=== PATIENT | male | born 2000 | race Caucasian/White ===

== ENCOUNTER 2021-11-05 05:15 | Emergency (ER) | payer BC, OTHER, SELFPAY ==
[2021-11-05 05:25] VITALS: BP 140/91; PULSE 100; RESP 18; TEMP 37.3; O2SAT 100; BMI 19.3
[2021-11-05 05:41] VITALS: PULSE 104; RESP 16; O2SAT 97
[2021-11-05 05:55] LABS: MANUAL DIFF FLAG NO
[2021-11-05 05:56] LABS: Basophils Percent Auto 0.2 % (0-2); Eosinophils Percent Auto 3.6 % (0-4); Imm Gran Abs Auto 0.01 X10*3/uL (0.00-0.03); Imm Gran Pct Auto 0.2 % (0.0-0.4); Mean Corpuscular HGB Conc 34.9 g/dl (31.0-36.0); PLT CLUMP 1; SCAN SMEAR FLAG 1
[2021-11-05 05:57] LABS: Eosinophils Absolute Auto 0.2 X10*3/uL (0.0-0.4); Hematocrit 50.5 % (42.0-52.0); Hemoglobin 17.6 g/dl (14.0-18.0); Lymphocytes Absolute Auto 0.9 X10*3/uL (1.2-4.9); Lymphocytes Percent Auto 14.2 % (20-40); Mean Corpuscular Volume 83.3 fL (80.0-98.0); Monocytes Absolute Auto 0.8 X10*3/uL (0.1-1.2); Monocytes Percent Auto 12.1 % (2-11); Neutrophils Absolute Auto 4.3 x10*3/uL (2.0-8.3); Neutrophils Percent Auto 69.7 % (45-73); Red Blood Count 6.06 X10*6/uL (4.60-5.80); Red Cell Distribution Width 12.6 % (11.0-16.0)
[2021-11-05] MEDS: diphenhydrAMINE HCL 50 MG/ML VIAL 25 MG IM (05:58)
[2021-11-05 06:05] LABS: Strep A Nucleic Acid Negative (Negative)
[2021-11-05 06:06] LABS: Platelet Count 131 X10*3/uL (160-400); White Blood Count 6.2 X10*3/uL (4.8-10.8)
[2021-11-05 06:09] LABS: COVID-19 Test Negative (Negative)
[2021-11-05 06:11] VITALS: BP 143/82; PULSE 89; RESP 20; TEMP 36.9; O2SAT 97
[2021-11-05 06:17] LABS: Alanine Aminotransferase 10 U/L (0-40); Albumin Level 4.7 g/dL (3.5-5.0); Alkaline Phosphatase 72 U/L (39-117); Anion Gap 14 (12-20); Aspartate Amino Transferase 15 U/L (5-37); Bilirubin Total 1.4 mg/dL (0.0-1.0); Blood Urea Nitrogen 11 mg/dL (9-16); Calcium 9.2 mg/dL (8.4-10.2); Carbon Dioxide 22 mmol/L (22-29); Chloride 106 mmol/L (96-108); Creatinine Clr Calc Pharmacy 113.7; Estimated Glomerular Filt Rate > 60; Glucose Random 145 mg/dL (60-115); Potassium 3.8 mmol/L (3.3-5.1); Sodium 138 mmol/L (135-145); Total Protein 7.1 g/dL (6.5-8.0)
--- NOTE | 2021-11-05 07:00 | ED.GENADULT ---
HPI - General Adult General Chief complaint: Skin/Abscess/Foreign Body Stated complaint: Nausea/Rash/Abd pain Time Seen by Provider: 11/05/21 06:53 History of Present Illness HPI narrative: This is a healthy 21 years old man presented to the emergency department complaining of rash, nausea. He states that he woke up above 05:00 with a rash and nausea therefore he came to the ED. He denies any fever, vomiting, diarrhea. Onset (ago): hour(s) (2) Location: chest and abdomen Radiation: non-radiation Quality: burning Relieving factors: none Exacerbating factors: none Associated symptoms: rash Related Data Previous Rx's Medication Instructions Recorded clindamycin phosphate 1 % topical 1 appl topical BEDTIME #30 mL 02/24/21 solution Allergies Allergy/AdvReac Type Severity Reaction Status Date / Time pistachio nut Allergy Anaphylaxis Verified 11/05/21 05:23 Review of Systems Review of Systems: Yes all other systems are reviewed and are negative Gastrointestinal: Gastrointestinal: Reports nausea Allergic/Immunologic: Comments: rash PMFSH Past Medical History Medical History Asthma Generalized anxiety disorder Irritable bowel syndrome Surgical History Transposition of the great arteries Social History Social History Housing: Other Patient Tobacco Use Status: Never used Tobacco e-Cigarette/Vaping Use: Never Used Second Hand Smoke Exposure: No Advance Directives: No Current occupational status: employed Physical Exam ED Vital Signs: Vital Signs - 24 hr 11/05/21 05:25 11/05/21 05:41 11/05/21 06:11 Temperature 99.1 F 98.4 F Pulse Rate 100 104 H 89 Respiratory Rate 18 16 20 Blood Pressure 140/91 H 143/82 H Pulse Oximetry 100 97 97 Oxygen Delivery Method Room Air Room Air Room Air BMI result Body Mass Index 19.3 Const General: cooperative, no acute distress, well developed, alert and awake Nutritional Appearance: average body habitus Orientation/consciousness: patient oriented x3 Limitations: no limitations HENMT Head: Yes normal to inspection Ears: hearing grossly normal bilaterally General nose exam: Normal external nose present Face and sinus: Yes normal facial exam Mouth: Normal oral and palatal mucosa present Throat: Yes posterior oropharynx normal Neck Neck: Yes normal visual inspection, Yes full ROM, Yes no lymphadenopathy and Yes no meningeal signs Lymphatic: no lymphadenopathy noted Chest Chest palpation & inspection: normal inspection of the chest Resp Effort & Inspection: normal respiratory effort Auscultation: clear to auscultation bilaterally Cardio Rate: regular rate Rhythm: regular rhythm GI Inspection: Yes normal to inspection Palpation (GI): Soft to palpation, not firm, nontender, no guarding and not rigid General: Yes no CVA tenderness Back/Spine/Pelvis Back: no CVA tenderness Skin Other: Erythematous rash is noted in the abdomen lower chest forearm bilaterally Neuro General: patient oriented x3 and no meningeal signs Course Course Course Narrative: remain hemodynamically stable,lungs clear, VSS OK to d/c Medical Decision Making MDM Narrative Medical decision making narrative: Patient presented with nausea and nausea consistent with an allergic reaction however is lungs are clear, tongue is normal , he is hemodynamically stable his oxygen saturation is 100%. He already received Benadryl prior my arrival. We will gave him IV Solu-Medrol, Pepcid and Zofran anticipate discharge home Lab Data Result diagrams: 11/05/21 05:48 11/05/21 05:48 Labs: Lab Results 11/05/21 11/05/21 11/05/21 Range/Units 05:48 05:48 05:48 WBC 6.2 (4.8-10.8) X10*3/uL RBC 6.06 H (4.60-5.80) X10*6/uL Hgb 17.6 (14.0-18.0) g/dl Hct 50.5 (42.0-52.0) % MCV 83.3 (80.0-98.0) fL MCH 29.0 (27.0-33.0) pg MCHC 34.9 (31.0-36.0) g/dl RDW 12.6 (11.0-16.0) % Plt Count 131 L (160-400) X10*3/uL MPV 10.0 (9.4-12.4) fL Immature Gran % (Auto) 0.2 (0.0-0.4) % Neut % (Auto) 69.7 (45-73) % Lymph % (Auto) 14.2 L (20-40) % [place] % (Auto) 12.1 H (2-11) % Eos % (Auto) 3.6 (0-4) % Baso % (Auto) 0.2 (0-2) % Lymph # (Auto) 0.9 L (1.2-4.9) X10*3/uL [place] # (Auto) 0.8 (0.1-1.2) X10*3/uL Eos # (Auto) 0.2 (0.0-0.4) X10*3/uL Baso # (Auto) 0.0 (0.0-0.2) X10*3/uL Abs Immat Gran (auto) 0.01 (0.00-0.03) X10*3/uL Absolute Neuts (auto) 4.3 (2.0-8.3) x10*3/uL Absolute Nucleated RBC 0.000 (0.0-0.012) X10*3/uL Nucleated RBC % (auto) 0.0 (0.0-0.2) /100WBC Sodium 138 (135-145) mmol/L Potassium 3.8 (3.3-5.1) mmol/L Chloride 106 (96-108) mmol/L Carbon Dioxide 22 (22-29) mmol/L Anion Gap 14 (12-20) BUN 11 (9-16) mg/dL Creatinine 0.95 (0.5-1.4) mg/dL Estim Creat Clear Calc 113.7 Estimated GFR > 60 Random Glucose 145 H (60-115) mg/dL Calcium 9.2 (8.4-10.2) mg/dL Total Bilirubin 1.4 H (0.0-1.0) mg/dL AST 15 (5-37) U/L ALT 10 (0-40) U/L Alkaline Phosphatase 72 (39-117) U/L Total Protein 7.1 (6.5-8.0) g/dL Albumin 4.7 (3.5-5.0) g/dL COVID-19 (GUTIERREZ) (Negative) COVID-19 Clin Com S. pyogenes GrpA ROSALEE Negative (Negative) 11/05/21 Range/Units 05:48 WBC (4.8-10.8) X10*3/uL RBC (4.60-5.80) X10*6/uL Hgb (14.0-18.0) g/dl Hct (42.0-52.0) % MCV (80.0-98.0) fL MCH (27.0-33.0) pg MCHC (31.0-36.0) g/dl RDW (11.0-16.0) % Plt Count (160-400) X10*3/uL MPV (9.4-12.4) fL Immature Gran % (Auto) (0.0-0.4) % Neut % (Auto) (45-73) % Lymph % (Auto) (20-40) % [place] % (Auto) (2-11) % Eos % (Auto) (0-4) % Baso % (Auto) (0-2) % Lymph # (Auto) (1.2-4.9) X10*3/uL [place] # (Auto) (0.1-1.2) X10*3/uL Eos # (Auto) (0.0-0.4) X10*3/uL Baso # (Auto) (0.0-0.2) X10*3/uL Abs Immat Gran (auto) (0.00-0.03) X10*3/uL Absolute Neuts (auto) (2.0-8.3) x10*3/uL Absolute Nucleated RBC (0.0-0.012) X10*3/uL Nucleated RBC % (auto) (0.0-0.2) /100WBC Sodium (135-145) mmol/L Potassium (3.3-5.1) mmol/L Chloride (96-108) mmol/L Carbon Dioxide (22-29) mmol/L Anion Gap (12-20) BUN (9-16) mg/dL Creatinine (0.5-1.4) mg/dL Estim Creat Clear Calc Estimated GFR Random Glucose (60-115) mg/dL Calcium (8.4-10.2) mg/dL Total Bilirubin (0.0-1.0) mg/dL AST (5-37) U/L ALT (0-40) U/L Alkaline Phosphatase (39-117) U/L Total Protein (6.5-8.0) g/dL Albumin (3.5-5.0) g/dL COVID-19 (GUTIERREZ) Negative (Negative) COVID-19 Clin Com See Note S. pyogenes GrpA ROSALEE (Negative) Discharge Plan Discharge Clinical Impression: Allergic reaction Patient Disposition: Home, Self-Care Instructions: General Allergic Reaction (ED) Additional Instructions: You could take Benadryl 25mg to50 mg every 6 hours as needed, Benadryl is [id number]. Return if you worse the few short of breath, any concern Prescriptions: No Action clindamycin phosphate 1 % solution 1 appl topical BEDTIME Qty: 30 1RF
[2021-11-05] MEDS: Famotidine/PF 20 MG/2 ML VIAL IVPUSH (07:37)
[2021-11-05] MEDS: methylPREDNISolone Sod Succ 125 MG/2 ML VIAL IVPUSH (07:37)
[2021-11-05] MEDS: ondansetron HCL 4 MG/2 ML VIAL IVPUSH (07:37)
== END 2021-11-05 08:14 | disposition home or self-care (01) ==
PROVIDERS: Emergency Provider Emergency Medicine; PCP Internal Medicine
DX: T78.40XA Allergy, unspecified, initial encounter (principal); R21 Rash and other nonspecific skin eruption; X58.XXXA Exposure to other specified factors, initial encounter; R11.0 Nausea; Z20.822 Contact with and (suspected) exposure to COVID-19
CPT/HCPCS: 36415; 80053; 85025; 87635; 87651; 96372; 96374; 96375; 99284; J1200; J2405; J2930

== ENCOUNTER 2022-02-23 14:39 | Inpatient (IN) | payer BC, OTHER, SELFPAY ==
--- NOTE | ~2022-02-23 | CT_ITS ---
EXAMINATION: CT SOFT TISSUE NECK WITH CONTRAST CLINICAL INFORMATION: Esophageal pain, recurrent impactions COMPARISON: None. TECHNIQUE: Following the administration of 75 mL of Omnipaque 300 intravenous contrast, helical imaging was performed in the axial plane with generation of coronal and sagittal reformatted images. This CT examination was performed using dose optimization techniques as appropriate, variously including the following: *Automated exposure control. *Adjustment of mA and/or kV according to patient size (this includes techniques or standardized protocols for targeted exams where dose is matched to indication/reason for exam; i.e. extremities or head). *Use of iterative reconstruction technique. DLP: 902 mGy-cm. FINDINGS: Nasopharynx/skull base: The fat planes of the skull base and soft tissues of the nasopharynx are unremarkable. The paranasal sinuses and mastoid air cells are well aerated. The temporomandibular joints are normal. Suprahyoid neck: The oropharynx, oral cavity, and bilateral salivary gland tissues are unremarkable. Infrahyoid neck: The hypopharynx and larynx are unremarkable. No aerodigestive tract mass. Thyroid: The thyroid gland is normal. Lymph nodes: There is no cervical chain lymphadenopathy. Lung apices: The partially visualized lung apices are clear. Small sternal wires are noted. Vascular structures: No hemodynamically significant stenosis, dissection, or occlusion. Osseous structures: The osseous structures are intact without suspicious focal lesion. Other: Redemonstration of gyriform calcifications in the left frontal lobe. There is enhancement, possibly vascular, in the parenchyma adjacent to the calcifications with possible prominent cortical draining vein which may reflect underlying vascular malformation. CT/CT soft tissue neck w IV con IMPRESSION: 1. Normal soft tissues of the neck. 2. Redemonstration of gyriform calcifications in the left frontal lobe with possible vascular enhancement which may reflect underlying vascular malformation. Recommend further evaluation with contrast-enhanced MRI and MRA of the brain with and without contrast.
--- NOTE | ~2022-02-23 | CT_ITS ---
EXAMINATION: CT HEAD WITH CONTRAST CLINICAL INFORMATION: Abnormal scan COMPARISON: None TECHNIQUE: Contiguous axial imaging was performed from the skull base to vertex following the administration of 100 mL of Omnipaque [address] examination was performed using dose optimization techniques as appropriate, variously including the following: *Automated exposure control *Adjustment of mA and/or kV according to patient size (this includes techniques or standardized protocols for targeted exams where dose is matched to indication/reason for exam; i.e. extremities or head) *Use of iterative reconstruction technique DLP: 797 mGy-cm FINDINGS: There is a region of predominantly gyriform dense calcification in the left frontal lobe with associated parenchymal atrophy. Superimposed contrast enhancement in the absence of a noncontrast CT cannot be excluded. Calcifications extend along the deep margin of the lesion towards the left head of the caudate. No evidence of acute intracranial hemorrhage within the limitations of a postcontrast exam. No mass effect or midline shift. No extra-axial collection. Normal caliber and configuration of the ventricles. No definite abnormal parenchymal enhancement. The dural venous sinuses are patent. No acute soft tissue or osseous abnormality. Trace scattered paranasal sinus mucosal thickening. The mastoids are clear. CT/CT head/brain w IV con IMPRESSION: 1. No acute intracranial abnormality within the limitations of a postcontrast exam. 2. There is a region of predominantly gyriform dense calcification in the left frontal lobe with associated parenchymal atrophy. This may reflect sequela of prior infarct, infection, or vascular malformation. Recommend correlation with clinical history and consider further evaluation with contrast-enhanced MRI of the brain.
--- NOTE | ~2022-02-23 | CT_ITS ---
EXAMINATION: CT CHEST WITH CONTRAST CLINICAL INFORMATION: Esophageal pain COMPARISON: None TECHNIQUE: Multidetector volumetric CT imaging of the chest was obtained after the administration of 75 mL of Omnipaque 350 intravenous contrast without immediate adverse reactions. Axial MIP volume rendering provided. Sagittal and coronal reformatted images were obtained. This CT examination was performed using dose optimization techniques as appropriate, variously including the following: *Automated exposure control *Adjustment of mA and/or kV according to patient size (this includes techniques or standardized protocols for targeted exams where dose is matched to indication/reason for exam; i.e. extremities or head) *Use of iterative reconstruction technique DLP: 902 mGy-cm FINDINGS: LUNGS: Central airways are patent. No consolidation. No pulmonary nodule or mass. No pneumothorax. MEDIASTINUM: Normal heart size. Variant anatomy of the vasculature. The main pulmonary artery is positioned anterior to the aorta. The right and left pulmonary arteries splay around the aorta, which varies from the typical positioning of the main pulmonary artery and its branches. Normal caliber aorta. Normal branching pattern of the aortic arch. Normal course of the esophagus. No esophageal wall thickening noted. No adjacent mass. CORONARY ARTERY CALCIFICATION: None visualized on this study. PLEURA: There is no pleural effusion. No pleural mass or thickening. AXILLA: No lymphadenopathy. UPPER ABDOMEN: Unremarkable OSSEOUS STRUCTURES: No acute osseous abnormality. Status post median sternotomy with small sternal wires, suggesting a pediatric procedure. CT/CT chest w IV con IMPRESSION: 1. No acute findings in the chest. Normal course of the esophagus. No esophageal wall thickening. No adjacent mass. 2. Variant anatomy of the central vasculature. The main pulmonary artery is positioned anterior to the aorta. The right and left pulmonary arteries splay around the aorta, which varies from the typical positioning of the main pulmonary artery and its branches. There is likely prior pediatric intervention, with median sternotomy wires noted. Fleischner guidelines were followed.
[2022-02-23 14:41] VITALS: BP 145/71; PULSE 90; RESP 18; TEMP 36.1; O2SAT 100; BMI 18.2
--- NOTE | 2022-02-23 14:44 | ECG_ITS ---
Test Reason : chest pain Blood Pressure : / mmHG Vent. Rate : 118 BPM Atrial Rate : 118 BPM P-R Int : 156 ms QRS Dur : 112 ms QT Int : 320 ms P-R-T Axes : 077 088 059 degrees QTc Int : 448 ms Sinus tachycardia RSR' or QR pattern in V1 suggests right ventricular conduction delay Biatrial enlargement Abnormal ECG No previous ECGs available Referred By: Generic ED Physician Electronically Signed By:TAMMY CASTRO MD
[2022-02-23 15:07] LABS: MANUAL DIFF FLAG NO
[2022-02-23 15:10] LABS: Basophils Percent Auto 0.5 % (0-2); Eosinophils Absolute Auto 0.2 X10*3/uL (0.0-0.4); Eosinophils Percent Auto 3.1 % (0-4); Hematocrit 48.7 % (42.0-52.0); Hemoglobin 16.7 g/dl (14.0-18.0); Imm Gran Abs Auto 0.02 X10*3/uL (0.00-0.03); Imm Gran Pct Auto 0.4 % (0.0-0.4); Lymphocytes Absolute Auto 1.5 X10*3/uL (1.2-4.9); Lymphocytes Percent Auto 27.5 % (20-40); Mean Corpuscular HGB Conc 34.3 g/dl (31.0-36.0); Mean Corpuscular Hemoglobin 28.7 pg (27.0-33.0); Mean Corpuscular Volume 83.7 fL (80.0-98.0); Mean Platelet Volume 9.8 fL (9.4-12.4); Monocytes Absolute Auto 0.5 X10*3/uL (0.1-1.2); Monocytes Percent Auto 9.4 % (2-11); Neutrophils Absolute Auto 3.3 x10*3/uL (2.0-8.3); Neutrophils Percent Auto 59.1 % (45-73); Platelet Count 174 X10*3/uL (160-400); Red Blood Count 5.82 X10*6/uL (4.60-5.80); Red Cell Distribution Width 12.9 % (11.0-16.0); White Blood Count 5.6 X10*3/uL (4.8-10.8)
[2022-02-23 15:22] LABS: COVID-19 Test Negative (Negative); IDNOW Serial# 16C4AD1C
[2022-02-23 15:26] LABS: Alanine Aminotransferase 9 U/L (0-40); Albumin Level 5.1 g/dL (3.5-5.0); Alkaline Phosphatase 88 U/L (39-117); Anion Gap 18 (12-20); Aspartate Amino Transferase 16 U/L (5-37); Bilirubin Direct 0.7 mg/dL (0.0-0.5); Bilirubin Total 1.6 mg/dL (0.0-1.0); Blood Urea Nitrogen 13 mg/dL (9-16); Calcium 9.9 mg/dL (8.4-10.2); Carbon Dioxide 24 mmol/L (22-29); Chloride 101 mmol/L (96-108); Creatinine Clr Calc Pharmacy 121.7; Estimated Glomerular Filt Rate > 60; Glucose Random 84 mg/dL (60-115); Lipase 25 U/L (8-78); Potassium 3.8 mmol/L (3.3-5.1); Sodium 139 mmol/L (135-145); Total Protein 7.4 g/dL (6.5-8.0)
[2022-02-23 15:32] LABS: Troponin-I High Sensitivity 15.6 ng/L (<3.5-35.0)
[2022-02-23 20:11] VITALS: BP 160/73; PULSE 100; RESP 9; TEMP 36.8; O2SAT 98
--- NOTE | 2022-02-23 20:17 | ED.CHESTPAIN ---
HPI - Chest Pain General Chief Complaint: Chest Pain Stated Complaint: chest pain Time Seen by Provider: 02/23/22 20:17 Source: patient Mode of arrival: ambulatory Limitations: no limitations History of Present Illness HPI narrative: 21-year-old male presents with 3 days of upper abdominal burning, chest pain, and esophageal pain. Patient stated that he had some hot in temperature food, pretty much inhaled it and it burned his esophagus. He is only able to take small sips of water, ate some chocolate however it burned to the point where he felt that he needed to present to the emergency department. He does not describe fevers, chills, abdominal pain, nausea, vomiting, diarrhea, or weakness. MD complaint: chest pain and chest discomfort Pertinent past history: asthma Onset (ago): day(s) (3) Timing of current episode: constant Prior episodes: No Onset: after eating Pain location: substernal and other (Esophageal) Severity: severe Pain scale (0-10): 9 Quality: burning Relieving factors: nothing Exacerbating factors: eating Risk Factors Coronary artery disease risk factors: none Thoracic aortic dissection risk factors: none Related Data Previous Rx's Medication Instructions Recorded clindamycin phosphate 1 % topical 1 appl topical BEDTIME #30 mL 02/24/21 solution Allergies Allergy/AdvReac Type Severity Reaction Status Date / Time pistachio nut Allergy Anaphylaxis Verified 11/05/21 05:23 Review of Systems Review of Systems: Constitutional: No Fever, No Chills ENT/Mouth: No Ear Pain, No Hoarseness, No sore throat Eyes: No Eye Pain, No Swelling, No Redness, No Foreign Body Cardiovascular: Positive Chest Pain, No SOB Respiratory: No Cough, No Dyspnea Gastrointestinal: Positive esophageal pain, No Nausea, No Vomiting, No Diarrhea, No abdominal Pain Genitourinary: No Dysuria, No Hematuria Musculoskeletal: No joint pain, No Myalgias, No Joint Swelling Skin: No Skin lacerations, No rash Neuro: No Weakness, No Numbness, No Paresthesias, No Loss of Consciousness, No Dizziness, No Headache Psych: No Anxiety/Panic, No Depression Heme/Lymph: no easy bruising, no Lymphadenopathy Endocrine: No Polyuria, No Polydipsia Yes all other systems are reviewed and are negative PMFSH Past Medical History Attestation statement: The following information was validated with the patient. Source: old records reviewed Medical History Asthma Generalized anxiety disorder Irritable bowel syndrome Surgical History Transposition of the great arteries Social History Social History Housing: Other Alcohol intake: current Alcohol intake frequency: holidays/special occasions only Patient Tobacco Use Status: Never used Tobacco e-Cigarette/Vaping Use: Never Used Second Hand Smoke Exposure: No Use of substances other than those prescribed or required for medical reasons: No Advance Directives: No Advance Directives Information Provided: No Current occupational status: employed Physical Exam Vital Signs: Vital Signs: Last Vital Signs Temp 97.5 F 02/23/22 22:46 Pulse 81 02/23/22 22:46 Resp 16 02/23/22 22:46 BP 129/74 02/23/22 22:46 Pulse Ox 96 02/23/22 22:46 O2 Del Method 02/23/22 21:48 BMI result Body Mass Index 18.2 Appearance: Alert. Oriented X3. No acute distress. Eyes: Pupils equal, round and reactive to light. ENT: Pharynx normal. Neck: Normal inspection. Neck supple. CVS: Normal heart rate and rhythm. Pulses normal. Respiratory: No respiratory distress. Breath sounds normal. Abdomen: Soft and nontender. Skin: Skin warm and dry. Normal skin color. Normal skin turgor. Extremities: No lower extremity edema. Well-balanced, well coordinated gait. Neuro: No motor deficit. No sensory deficit. Cranial nerves 2-12 intact. 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 Stated he inhaled the food because of the hot temperature, and the food burned the inside of his esophagus. He states that he has had difficulty swallowing food, and only can swallow small bits of water. He did try to eat chocolate however the chocolate burned his esophagus to the point where he needed Tums. Patient does not usually take any medications. Patient is alert oriented x4, pleasant but nervous, appears nontoxic, thin, with a well-balanced well coordinated gait. Labs were drawn while patient was in the emergency department waiting room, will repeat troponin. Discussion with Dr. Paredes, plan of care is for soft tissue CT and CT scan of the chest. Based on patient's history, patient has had a longstanding history of food impactions, where he has had to make himself throw up to get lodged food out of his esophagus, and has had multiple episodes of vomiting throughout adolescents. Plan is to admit for emergent endoscopy for the morning. Patient will be NPO after midnight. I did discussed this plan in detail with parent as well as patient, which both agree to plan of care. Discussion with Dr. Ordaz, plan of care is to admit for dysphagia. Consultations Consultation #1: Reggie Time: 23:10 Consultation #2: sabina Time: 23:30 MDM - Chest Pain Differential Diagnosis Differential diagnosis: Likely pneumothorax, atypical chest pain, st elevation myocardial infarction and biliary colic Differential diagnosis: Eosinophilic esophagitis, Schatzki's ring, food impaction Medical Records Data Attestation: I reviewed the patient's medical records. Lab Data Attestation: I reviewed the patient's lab results. Result diagrams: 02/23/22 14:59 02/23/22 14:59 Labs: Lab Results 02/23/22 02/23/22 02/23/22 Range/Units 14:59 14:59 14:59 WBC 5.6 (4.8-10.8) X10*3/uL RBC 5.82 H (4.60-5.80) X10*6/uL Hgb 16.7 (14.0-18.0) g/dl Hct 48.7 (42.0-52.0) % MCV 83.7 (80.0-98.0) fL MCH 28.7 (27.0-33.0) pg MCHC 34.3 (31.0-36.0) g/dl RDW 12.9 (11.0-16.0) % Plt Count 174 D (160-400) X10*3/uL MPV 9.8 (9.4-12.4) fL Immature Gran % (Auto) 0.4 (0.0-0.4) % Neut % (Auto) 59.1 (45-73) % Lymph % (Auto) 27.5 (20-40) % [place] % (Auto) 9.4 (2-11) % Eos % (Auto) 3.1 (0-4) % Baso % (Auto) 0.5 (0-2) % Lymph # (Auto) 1.5 (1.2-4.9) X10*3/uL [place] # (Auto) 0.5 (0.1-1.2) X10*3/uL Eos # (Auto) 0.2 (0.0-0.4) X10*3/uL Baso # (Auto) 0.0 (0.0-0.2) X10*3/uL Abs Immat Gran (auto) 0.02 (0.00-0.03) X10*3/uL Absolute Neuts (auto) 3.3 (2.0-8.3) x10*3/uL Absolute Nucleated RBC 0.000 (0.0-0.012) X10*3/uL Nucleated RBC % (auto) 0.0 (0.0-0.2) /100WBC Sodium 139 (135-145) mmol/L Potassium 3.8 (3.3-5.1) mmol/L Chloride 101 (96-108) mmol/L Carbon Dioxide 24 (22-29) mmol/L Anion Gap 18 (12-20) BUN 13 (9-16) mg/dL Creatinine 0.86 (0.5-1.4) mg/dL Estim Creat Clear Calc 121.7 Estimated GFR > 60 Random Glucose 84 D (60-115) mg/dL Calcium 9.9 D (8.4-10.2) mg/dL Total Bilirubin 1.6 H (0.0-1.0) mg/dL Direct Bilirubin 0.7 H (0.0-0.5) mg/dL AST 16 (5-37) U/L ALT 9 (0-40) U/L Alkaline Phosphatase 88 D (39-117) U/L Troponin I High Sens (<3.5-35.0) ng/L Total Protein 7.4 (6.5-8.0) g/dL Albumin 5.1 H (3.5-5.0) g/dL Lipase 25 (8-78) U/L Urine Color Urine Appearance Urine pH (5.0-9.0) Ur Specific [place] (1.005-1.025) Urine Protein (Neg-Trace) mg/dL Urine Glucose (UA) (Negative) mg/dL Urine Ketones (Negative) mg/dL Urine Blood (Negative) Urine Nitrite (Negative) Ur Leukocyte Esterase (Negative) Urine Opiates Screen (Not Detect) Urine Fentanyl Screen (Not Detect) Ur Barbiturates Screen (Not Detect) Ur Phencyclidine Scrn (Not Detect) Ur Amphetamines Screen (Not Detect) U Benzodiazepines Scrn (Not Detect) Urine Cocaine Screen (Not Detect) U Marijuana (THC) Screen (Not Detect) COVID-19 (GUTIERREZ) Negative (Negative) COVID-19 Clin Com See Note 02/23/22 02/23/22 02/23/22 Range/Units 14:59 20:37 21:18 WBC (4.8-10.8) X10*3/uL RBC (4.60-5.80) X10*6/uL Hgb (14.0-18.0) g/dl Hct (42.0-52.0) % MCV (80.0-98.0) fL MCH (27.0-33.0) pg MCHC (31.0-36.0) g/dl RDW (11.0-16.0) % Plt Count (160-400) X10*3/uL MPV (9.4-12.4) fL Immature Gran % (Auto) (0.0-0.4) % Neut % (Auto) (45-73) % Lymph % (Auto) (20-40) % [place] % (Auto) (2-11) % Eos % (Auto) (0-4) % Baso % (Auto) (0-2) % Lymph # (Auto) (1.2-4.9) X10*3/uL [place] # (Auto) (0.1-1.2) X10*3/uL Eos # (Auto) (0.0-0.4) X10*3/uL Baso # (Auto) (0.0-0.2) X10*3/uL Abs Immat Gran (auto) (0.00-0.03) X10*3/uL Absolute Neuts (auto) (2.0-8.3) x10*3/uL Absolute Nucleated RBC (0.0-0.012) X10*3/uL Nucleated RBC % (auto) (0.0-0.2) /100WBC Sodium (135-145) mmol/L Potassium (3.3-5.1) mmol/L Chloride (96-108) mmol/L Carbon Dioxide (22-29) mmol/L Anion Gap (12-20) BUN (9-16) mg/dL Creatinine (0.5-1.4) mg/dL Estim Creat Clear Calc Estimated GFR Random Glucose (60-115) mg/dL Calcium (8.4-10.2) mg/dL Total Bilirubin (0.0-1.0) mg/dL Direct Bilirubin (0.0-0.5) mg/dL AST (5-37) U/L ALT (0-40) U/L Alkaline Phosphatase (39-117) U/L Troponin I High Sens 15.6 14.1 (<3.5-35.0) ng/L Total Protein (6.5-8.0) g/dL Albumin (3.5-5.0) g/dL Lipase (8-78) U/L Urine Color Yellow Urine Appearance Clear Urine pH 6.0 (5.0-9.0) Ur Specific [place] <= 1.005 (1.005-1.025) Urine Protein Negative (Neg-Trace) mg/dL Urine Glucose (UA) Negative (Negative) mg/dL Urine Ketones 40 (Negative) mg/dL Urine Blood Negative (Negative) Urine Nitrite Negative (Negative) Ur Leukocyte Esterase Negative (Negative) Urine Opiates Screen (Not Detect) Urine Fentanyl Screen (Not Detect) Ur Barbiturates Screen (Not Detect) Ur Phencyclidine Scrn (Not Detect) Ur Amphetamines Screen (Not Detect) U Benzodiazepines Scrn (Not Detect) Urine Cocaine Screen (Not Detect) U Marijuana (THC) Screen (Not Detect) COVID-19 (GUTIERREZ) (Negative) COVID-19 Clin Com 02/23/22 Range/Units 21:18 WBC (4.8-10.8) X10*3/uL RBC (4.60-5.80) X10*6/uL Hgb (14.0-18.0) g/dl Hct (42.0-52.0) % MCV (80.0-98.0) fL MCH (27.0-33.0) pg MCHC (31.0-36.0) g/dl RDW (11.0-16.0) % Plt Count (160-400) X10*3/uL MPV (9.4-12.4) fL Immature Gran % (Auto) (0.0-0.4) % Neut % (Auto) (45-73) % Lymph % (Auto) (20-40) % [place] % (Auto) (2-11) % Eos % (Auto) (0-4) % Baso % (Auto) (0-2) % Lymph # (Auto) (1.2-4.9) X10*3/uL [place] # (Auto) (0.1-1.2) X10*3/uL Eos # (Auto) (0.0-0.4) X10*3/uL Baso # (Auto) (0.0-0.2) X10*3/uL Abs Immat Gran (auto) (0.00-0.03) X10*3/uL Absolute Neuts (auto) (2.0-8.3) x10*3/uL Absolute Nucleated RBC (0.0-0.012) X10*3/uL Nucleated RBC % (auto) (0.0-0.2) /100WBC Sodium (135-145) mmol/L Potassium (3.3-5.1) mmol/L Chloride (96-108) mmol/L Carbon Dioxide (22-29) mmol/L Anion Gap (12-20) BUN (9-16) mg/dL Creatinine (0.5-1.4) mg/dL Estim Creat Clear Calc Estimated GFR Random Glucose (60-115) mg/dL Calcium (8.4-10.2) mg/dL Total Bilirubin (0.0-1.0) mg/dL Direct Bilirubin (0.0-0.5) mg/dL AST (5-37) U/L ALT (0-40) U/L Alkaline Phosphatase (39-117) U/L Troponin I High Sens (<3.5-35.0) ng/L Total Protein (6.5-8.0) g/dL Albumin (3.5-5.0) g/dL Lipase (8-78) U/L Urine Color Urine Appearance Urine pH (5.0-9.0) Ur Specific [place] (1.005-1.025) Urine Protein (Neg-Trace) mg/dL Urine Glucose (UA) (Negative) mg/dL Urine Ketones (Negative) mg/dL Urine Blood (Negative) Urine Nitrite (Negative) Ur Leukocyte Esterase (Negative) Urine Opiates Screen Not Detected (Not Detect) Urine Fentanyl Screen Not Detected (Not Detect) Ur Barbiturates Screen Not Detected (Not Detect) Ur Phencyclidine Scrn Not Detected (Not Detect) Ur Amphetamines Screen Not Detected (Not Detect) U Benzodiazepines Scrn Not Detected (Not Detect) Urine Cocaine Screen Not Detected (Not Detect) U Marijuana (THC) Screen Not Detected (Not Detect) COVID-19 (GUTIERREZ) (Negative) COVID-19 Clin Com Imaging Data CT chest: Attestation: I personally reviewed and interpreted this imaging study as follows: Radiologist's impression: FINDINGS: LUNGS: Central airways are patent. No consolidation. No pulmonary nodule or mass. No pneumothorax.? MEDIASTINUM: Normal heart size. Variant anatomy of the vasculature. The main pulmonary artery is positioned anterior to the aorta. The right and left pulmonary arteries splay around the aorta, which varies from the typical positioning of the main pulmonary artery and its branches. Normal caliber aorta. Normal branching pattern of the aortic arch. Normal course of the esophagus. No esophageal wall thickening noted. No adjacent mass. CORONARY ARTERY CALCIFICATION: None visualized on this study. PLEURA: There is no pleural effusion. No pleural mass or thickening.? AXILLA: No lymphadenopathy.? UPPER ABDOMEN: Unremarkable? OSSEOUS STRUCTURES: No acute osseous abnormality. Status post median sternotomy with small sternal wires, suggesting a pediatric procedure. CT/CT chest w IV con IMPRESSION: 1.? No acute findings in the chest. Normal course of the esophagus. No esophageal wall thickening. No adjacent mass. 2.? Variant anatomy of the central vasculature. The main pulmonary artery is positioned anterior to the aorta. The right and left pulmonary arteries splay around the aorta, which varies from the typical positioning of the main pulmonary artery and its branches. There is likely prior pediatric intervention, with median sternotomy wires noted. ? Fleischner guidelines were followed. CT scan - head: Attestation: I personally reviewed and interpreted this imaging study as follows: Radiologist's impression: FINDINGS: There is a region of predominantly gyriform dense calcification in the left frontal lobe with associated parenchymal atrophy. Superimposed contrast enhancement in the absence of a noncontrast CT cannot be excluded. Calcifications extend along the deep margin of the lesion towards the left head of the caudate. No evidence of acute intracranial hemorrhage within the limitations of a postcontrast exam. No mass effect or midline shift. No extra-axial collection. Normal caliber and configuration of the ventricles. No definite abnormal parenchymal enhancement. The dural venous sinuses are patent. No acute soft tissue or osseous abnormality. Trace scattered paranasal sinus mucosal thickening. The mastoids are clear. CT/CT head/brain w IV con IMPRESSION: ? 1.? No acute intracranial abnormality within the limitations of a postcontrast exam. ? 2.? There is a region of predominantly gyriform dense calcification in the left frontal lobe with associated parenchymal atrophy. This may reflect sequela of prior infarct, infection, or vascular malformation. Recommend correlation with clinical history and consider further evaluation with contrast-enhanced MRI of the brain. CT soft tissue neck: Attestation: I personally reviewed and interpreted this imaging study as follows: Radiologist's impression: FINDINGS: Nasopharynx/skull base: The fat planes of the skull base and soft tissues of the nasopharynx are unremarkable. The paranasal sinuses and mastoid air cells are well aerated. The temporomandibular joints are normal. Suprahyoid neck: The oropharynx, oral cavity, and bilateral salivary gland tissues are unremarkable. Infrahyoid neck: The hypopharynx and larynx are unremarkable. No aerodigestive tract mass. Thyroid: The thyroid gland is normal. Lymph nodes: There is no cervical chain lymphadenopathy. Lung apices: The partially visualized lung apices are clear. Small sternal wires are noted. Vascular structures: No hemodynamically significant stenosis, dissection, or occlusion. Osseous structures: The osseous structures are intact without suspicious focal lesion. Other: Redemonstration of gyriform calcifications in the left frontal lobe. There is enhancement, possibly vascular, in the parenchyma adjacent to the calcifications with possible prominent cortical draining vein which may reflect underlying vascular malformation. CT/CT soft tissue neck w IV con IMPRESSION: ? 1.? Normal soft tissues of the neck. ? 2.? Redemonstration of gyriform calcifications in the left frontal lobe with possible vascular enhancement which may reflect underlying vascular malformation. Recommend further evaluation with contrast-enhanced MRI and MRA of the brain with and without contrast. ECG Data ECG #1: Attestation: I personally reviewed and interpreted this ECG as follows: ECG interpretation date: 02/23/22 ECG interpretation time: 14:51 Prior ECG tracings: available for review Interpretation: Vent. rate 118 BPM AL interval 156 ms QRS duration 112 ms QT/QTc 320/448 ms P-R-T axes 77 88 59 Sinus tachycardia Biatrial enlargement Abnormal ECG No previous ECGs available Discharge Plan Discharge Clinical Impression: Dysphagia, Odynophagia, Chest pain Patient Disposition: Admitted As Inpatient
[2022-02-23] MEDS: 0.9 % Sodium Chloride 1,000 ML 999 ML IVCONT (20:39)
[2022-02-23 21:05] LABS: Troponin-I High Sensitivity 14.1 ng/L (<3.5-35.0)
[2022-02-23] MEDS: Midazolam HCl/PF 2 MG/2 ML VIAL 1 MG IVPUSH (21:13)
[2022-02-23 21:44] LABS: Amphetamine Screen Urine Not Detected (Not Detect); Barbiturates, Urine Not Detected (Not Detect); Benzodiazepines Screen Urine Not Detected (Not Detect); Cannabinoid Screen Urine Not Detected (Not Detect); Cocaine Screen Urine Not Detected (Not Detect); Fentanyl, urine Not Detected (Not Detect); Opiate Screen Urine Not Detected (Not Detect); Phencyclidine Screen Urine Not Detected (Not Detect)
[2022-02-23 21:48] VITALS: BP 129/74; PULSE 82; RESP 18; O2SAT 98
[2022-02-23 22:00] LABS: Appearance Urine Clear; Color Urine Yellow; Glucose Urine UA Negative (Negative); Leukocyte Esterase Urine Negative (Negative); Nitrite Urine Negative (Negative); Specific Gravity - Urine <= 1.005 (1.005-1.025); Urine Blood Negative (Negative); Urine Ketones 40 mg/dL (Negative); Urine Protein Negative (Neg-Trace)
[2022-02-23 22:46] VITALS: BP 129/74; PULSE 81; RESP 16; TEMP 36.4; O2SAT 96
--- NOTE | 2022-02-23 23:58 | P.HPHOSP_ITS ---
History of Present Illness Date of Service: 02/23/22 Chief Complaint: Esophagel pain This is a 21-year-old male who is not on any prescription medications presents to the emergency department for evaluation of odynophagia. Patient states he had hot food, portion of beef and vegetables on Sunday and since then has been having burning pain in his esophagus and upper chest every time he eats. Patient has had reduced p.o. intake due to the same. Denies any difficulty swallowing. Patient denies fever or chills but does have nausea. No episodes of vomiting. On further questioning, states he has had off and on symptoms of food getting stuck in his esophagus/upper chest since many years. He has never been evaluated for it. Barium swallow study and upper endoscopy was ordered outpatient but he still has not undergone those studies. Patient denies palpitations, shortness of breath, abdominal pain, changes in urinary or bowel habits. No symptoms of gastroesophageal reflux disease. Never saw a GI doctor and never has gotten and upper endoscopy done. He does not have any pertinent past medical history and is not on any prescription medications. Had TOF repair as a child. In the emergency department, Gastroenterology was consulted who requested admission to medicine floor and will evaluate in the morning with possible endoscopy. Review of Systems Eyes: Eyes: Reports no additional eye complaints Cardiovascular: Cardiovascular: Reports no additional cardiovascular complaints Respiratory: Respiratory: Reports no additional respiratory complaints Gastrointestinal: Gastrointestinal: Reports heartburn Genitourinary: Genitourinary: Reports no additional male genitourinary c omplaints Musculoskeletal: Musculoskeletal: Reports no additional musculoskeletal complaints Integumentary/Breasts: Skin/Breast: Reports system reviewed and no additional complaints, except as docu Neurologic: Reports system reviewed and no additional complaints, except as documented Psychiatric: Psychiatric: Reports no additional psychiatric complaints Endocrine: Endocrine: Reports no additional endocrine complaints Hematologic/Lymphatic: Hematologic/Lymphatic: Reports no additional hematologic/lymphatic complaints Allergic/Immunologic: Allergic/Immunologic: Reports no additional allergic/immunologic complaints [facility] Medical History Asthma Generalized anxiety disorder Irritable bowel syndrome Surgical History Transposition of the great arteries Social History Housing: Other Alcohol intake: current Alcohol intake frequency: holidays/special occasions on ly Patient Tobacco Use Status: Never used Tobacco e-Cigarette/Vaping Use: Never Used Second Hand Smoke Exposure: No Use of substances other than those prescribed or required for medical reasons: No Advance Directives: No Advance Directives Information Provided: No Current occupational status: employed Meds Allergies Allergy/AdvReac Type Severity Reaction Status Date / Time pistachio nut Allergy Anaphylaxis Verified 11/05/21 05:23 Active Medications: Current Medications Acetaminophen (Acetaminophen 325 Mg Tablet) 650 mg PO Q6H PRN PRN Reason: Pain, Mild (Pain Scale 1-3) Melatonin (Melatonin 3 Mg Tablet) 6 mg PO BEDTIME PRN PRN Reason: Insomnia Ondansetron HCl (Ondansetron Hcl 4 Mg/2 Ml Vial) 4 mg IVPUSH Q8H PRN PRN Reason: Nausea and Vomiting Pharmacy Consult (Consult Rx Perform Med Rec) 1 each MISCELLANE ONCE PRN PRN Reason: Consult order Sodium Chloride (0.9 % Sodium Chloride Flush 3 Ml Syringe) 3 ml IVFLUSH QSHIFT ON LICENSE OF [facility] Physical Exam Vital Signs and Narrative: Vital Signs: Last Vital Signs Temp 97.5 F 02/23/22 22:46 Pulse 81 02/23/22 22:46 Resp 16 02/23/22 22:46 BP 129/74 02/23/22 22:46 Pulse Ox 96 02/23/22 22:46 O2 Del Method 02/23/22 21:48 BMI result Body Mass Index 18.2 Young male lying in bed in no distress Neck supple, no JVD Regular rate and rhythm, S1-S2 heard Regular breath sounds bilaterally, no wheezing or crackles appreciated Abdomen soft nontender, no guarding, no rigidity Patient is awake, alert and oriented to self, place, time and person ; no focal motor deficit Psych: Normal mood No pedal edema Results Labs CBC and Chem 7: 02/23/22 14:59 02/23/22 14:59 Labs: Laboratory Results - last 24 hr 02/23/22 02/23/22 02/23/22 14:59 14:59 14:59 MCV 83.7 MCH 28.7 MCHC 34.3 RDW 12.9 Plt Count 174 D MPV 9.8 Immature Gran % (Auto) 0.4 Neut % (Auto) 59.1 Lymph % (Auto) 27.5 [place] % (Auto) 9.4 Eos % (Auto) 3.1 Baso % (Auto) 0.5 Lymph # (Auto) 1.5 [place] # (Auto) 0.5 Eos # (Auto) 0.2 Baso # (Auto) 0.0 Abs Immat Gran (auto) 0.02 Absolute Neuts (auto) 3.3 Absolute Nucleated RBC 0.000 Nucleated RBC % (auto) 0.0 Anion Gap 18 Estim Creat Clear Calc 121.7 Estimated GFR > 60 Random Glucose 84 D Calcium 9.9 D Total Bilirubin 1.6 H Direct Bilirubin 0.7 H AST 16 ALT 9 Alkaline Phosphatase 88 D Troponin I High Sens Total Protein 7.4 Albumin 5.1 H Lipase 25 Urine Color Urine Appearance Urine pH Ur Specific [place] Urine Protein Urine Glucose (UA) Urine Ketones Urine Blood Urine Nitrite Ur Leukocyte Esterase Urine Opiates Screen Urine Fentanyl Screen Ur Barbiturates Screen Ur Phencyclidine Scrn Ur Amphetamines Screen U Benzodiazepines Scrn Urine Cocaine Screen U Marijuana (THC) Screen COVID-19 (GUTIERREZ) Negative COVID-19 Clin Com See Note 02/23/22 02/23/22 02/23/22 14:59 20:37 21:18 MCV MCH MCHC RDW Plt Count MPV Immature Gran % (Auto) Neut % (Auto) Lymph % (Auto) [place] % (Auto) Eos % (Auto) Baso % (Auto) Lymph # (Auto) [place] # (Auto) Eos # (Auto) Baso # (Auto) Abs Immat Gran (auto) Absolute Neuts (auto) Absolute Nucleated RBC Nucleated RBC % (auto) Anion Gap Estim Creat Clear Calc Estimated GFR Random Glucose Calcium Total Bilirubin Direct Bilirubin AST ALT Alkaline Phosphatase Troponin I High Sens 15.6 14.1 Total Protein Albumin Lipase Urine Color Yellow Urine Appearance Clear Urine pH 6.0 Ur Specific [place] <= 1.005 Urine Protein Negative Urine Glucose (UA) Negative Urine Ketones 40 Urine Blood Negative Urine Nitrite Negative Ur Leukocyte Esterase Negative Urine Opiates Screen Urine Fentanyl Screen Ur Barbiturates Screen Ur Phencyclidine Scrn Ur Amphetamines Screen U Benzodiazepines Scrn Urine Cocaine Screen U Marijuana (THC) Screen COVID-19 (GUTIERREZ) COVID-19 Clin Com 02/23/22 21:18 MCV MCH MCHC RDW Plt Count MPV Immature Gran % (Auto) Neut % (Auto) Lymph % (Auto) [place] % (Auto) Eos % (Auto) Baso % (Auto) Lymph # (Auto) [place] # (Auto) Eos # (Auto) Baso # (Auto) Abs Immat Gran (auto) Absolute Neuts (auto) Absolute Nucleated RBC Nucleated RBC % (auto) Anion Gap Estim Creat Clear Calc Estimated GFR Random Glucose Calcium Total Bilirubin Direct Bilirubin AST ALT Alkaline Phosphatase Troponin I High Sens Total Protein Albumin Lipase Urine Color Urine Appearance Urine pH Ur Specific [place] Urine Protein Urine Glucose (UA) Urine Ketones Urine Blood Urine Nitrite Ur Leukocyte Esterase Urine Opiates Screen Not Detected Urine Fentanyl Screen Not Detected Ur Barbiturates Screen Not Detected Ur Phencyclidine Scrn Not Detected Ur Amphetamines Screen Not Detected U Benzodiazepines Scrn Not Detected Urine Cocaine Screen Not Detected U Marijuana (THC) Screen Not Detected COVID-19 (GUTIERREZ) COVID-19 Clin Com Assessment and Plan (1) Odynophagia: Status: Acute (2) Dysphagia: Status: Acute Plan This is a 21-year-old male who is not on any prescription medications presents to the emergency department for evaluation of odynophagia. #. Odynophagia #. Intermittent dysphagia -will admit patient and keep NPO. Gastroenterology has been consulted from the ER who will evaluate in a.m. with possible endoscopy. CT scan head/chest pending DVT prophylaxis: None. No anticoagulation for endoscopic intervention Diet: NPO Full code Will admit as inpatient for endoscopic evaluation by Gastroenterology Quality Stroke Does the patient have a stroke diagnosis?: No VTE Prior VTE?: No VTE Risk Level:: Medical - low VTE Device Contraindication: Treatment Not Indicated VTE Drug Contraindication: Treatment Not Indicated
[2022-02-24] VITALS (7 sets, daily range): BP systolic 115–142; BP diastolic 59–78; PULSE 68–91; RESP 16–20; TEMP 36.5–37.4; O2SAT 95–98; BMI 17.9
[2022-02-24] MEDS: iohexoL 350 MG/ML 100 ML INFUS..BTL IV (00:08)
[2022-02-24] MEDS: 0.9 % Sodium Chloride Flush 3 ML SYRINGE IVFLUSH ×2 (00:15→08:46)
--- NOTE | 2022-02-24 07:07 | P.CNGI_ITS ---
History of Present Illness Data of Consult Service Date: 02/24/22 Requesting physician: Eusebio Ordaz Primary Care Provider: Fredrick Haney MD [facility] Reason for consult: Dysphagia and odynophagia 21 YM with asthma, IBS and generalized anxiety disorder seen at [facility] on 02/23/22 for evaluation of odynophagia.? Patient is status post surgery for transposition of the great arteries in [facility]. Patient stated he had hot food (portion of beef and vegetables) on 02/20/22 and since then has been having burning pain in his esophagus and upper chest every time he eats.? He complains of reduced p.o. intake since then.? Patient denies fever or chills but does have nausea and denies vomiting.? Pt gives a hx of intermittent dysphagia to solid food since childhood and has not been evaluated for this issue.? Barium swallow study and upper endoscopy was ordered as an outpatient and have not been scheduled (pt has not seen a Launch Engineer yet).? Patient denied palpitations, shortness of breath, heartburn, abdominal pain.? He gives a hx asthma in childhood and IBS with diarrhea alternating with constipation. He does not have any pertinent past medical history and is not on any prescription medications.? Mom has GERD and IBS and pt denies known FH of colon polyps or GI malignancy. 02/24/[address] SCAN SHOWED: 1.? No acute findings in the chest. Normal course of the esophagus. No esophageal wall thickening. No adjacent mass. 2.? Variant anatomy of the central vasculature. The main pulmonary artery is positioned anterior to the aorta. The right and left pulmonary arteries splay around the aorta, which varies from the typical positioning of the main pulmonary artery and its branches. There is likely prior pediatric intervention, with median sternotomy wires noted. Review of Systems Eyes: Eyes: Reports no additional eye complaints ENT: Reports dysphagia Cardiovascular: Cardiovascular: Reports no additional cardiovascular complaints Respiratory: Respiratory: Reports no additional respiratory complaints Gastrointestinal: Gastrointestinal: Reports constipation, Reports dysphagia and Reports diarrhea Genitourinary: Genitourinary: Reports no additional male genitourinary complaints Musculoskeletal: Musculoskeletal: Reports no additional musculoskeletal complaints Integumentary/Breasts: Skin/Breast: Reports system reviewed and no additional complaints, except as docu Neurologic: Reports system reviewed and no additional complaints, except as documented Psychiatric: Psychiatric: Reports no additional psychiatric complaints Endocrine: Endocrine: Reports no additional endocrine complaints Hematologic/Lymphatic: Hematologic/Lymphatic: Reports no additional hematologic/lymphatic complaints Allergic/Immunologic: Allergic/Immunologic: Reports no additional allergic/immunologic complaints [facility] Past Medical History Medical History (Updated 02/24/22 @ 14:35 by Gurmeet Mcgregor MD) Asthma Generalized anxiety disorder Irritable bowel syndrome Surgical History Surgical History (Updated 02/24/22 @ 14:35 by Gurmeet Mcgregor MD) Transposition of the great arteries Social History Social History Household Members: Family Housing: House Do you presently have visiting nurse or other home services: No Alcohol intake: current Alcohol intake frequency: holidays/special occasions only Patient Tobacco Use Status: Never used Tobacco e-Cigarette/Vaping Use: Never Used Second Hand Smoke Exposure: No service: No Current occupational status: employed Meds Allergies Allergy/AdvReac Type Severity Reaction Status Date / Time pistachio nut Allergy Anaphylaxis Verified 02/24/22 08:47 Active Medications: Current Medications Acetaminophen (Acetaminophen 325 Mg Tablet) 650 mg PO Q6H PRN PRN Reason: Pain, Mild (Pain Scale 1-3) Melatonin (Melatonin 3 Mg Tablet) 6 mg PO BEDTIME PRN PRN Reason: Insomnia Ondansetron HCl (Ondansetron Hcl 4 Mg/2 Ml Vial) 4 mg IVPUSH Q8H PRN PRN Reason: Nausea and Vomiting Pharmacy Consult (Consult Rx Perform Med Rec) 1 each MISCELLANE ONCE PRN PRN Reason: Consult order Sodium Chloride (0.9 % Sodium Chloride Flush 3 Ml Syringe) 3 ml IVFLUSH [facility] Last Admin: 02/24/22 00:15 Dose: 3 ml Home Medications Medication Instructions Recorded Confirmed Last Taken Type calcium carbonate 500 mg calcium 500 mg PO BID PRN Indigestion 02/24/22 02/24/22 Unknown History (1,250 mg) chewable tablet Physical Exam Vital Signs: Vital Signs: Last Vital Signs Temp 97.5 F 02/23/22 22:46 Pulse 81 02/24/22 01:39 Resp 16 02/24/22 01:39 BP 141/78 H 02/24/22 01:39 Pulse Ox 95 02/24/22 01:39 O2 Del Method 02/24/22 01:39 BMI result Body Mass Index 18.2 Const: General: healthy appearing and no acute distress Nutritional Appearance: average body habitus Orientation/consciousness: patient oriented x3 Limitations: no limitations HEENT: Head: Yes normal to inspection Ears: hearing grossly normal bilaterally Eyes: Sclerae: sclerae normal Pupils: Equal, round and reactive pupils present Neck: Neck: Yes normal visual inspection Chest: Chest palpation & inspection: normal inspection of the chest and other (midline scar of past surgery) Resp: Effort & Inspection: normal respiratory effort Auscultation: clear to auscultation bilaterally Cardio: Palpation: normal PMI Rate: regular rate Rhythm: regular rhythm Heart sounds: S1 normal heart sound present, S2 normal heart sound present and Murmur heart sound present (4/6 systolic murmur at LSB) GI: Palpation (GI): Soft to palpation, nontender and No hepatosplenomegaly present Auscultation: normal bowel sounds Rectal Exam - Male: Yes deferred Skin: General skin exam: no rashes or lesions noted Neuro: General: patient oriented x3, gait normal and moves all extremities Cranial nerves: Yes Equal, round and reactive pupils present Psych: Appearance: grossly normal Mental Status: mental status grossly normal Results Labs CBC & Chem 7: 02/23/22 14:59 02/23/22 14:59 Labs: Short CBC 02/23/22 Range/Units 14:59 WBC 5.6 (4.8-10.8) X10*3/uL Hgb 16.7 (14.0-18.0) g/dl Hct 48.7 (42.0-52.0) % Plt Count 174 D (160-400) X10*3/uL BMP 02/23/22 14:59 Sodium 139 Potassium 3.8 Chloride 101 Carbon Dioxide 24 BUN 13 Creatinine 0.86 Calcium 9.9 D Liver Function 02/23/22 Range/Units 14:59 Total Bilirubin 1.6 H (0.0-1.0) mg/dL Direct Bilirubin 0.7 H (0.0-0.5) mg/dL AST 16 (5-37) U/L ALT 9 (0-40) U/L Alkaline Phosphatase 88 D (39-117) U/L Albumin 5.1 H (3.5-5.0) g/dL Urine 02/23/22 Range/Units 21:18 Urine Color Yellow Urine Appearance Clear Urine pH 6.0 (5.0-9.0) Ur Specific [place] <= 1.005 (1.005-1.025) Urine Protein Negative (Neg-Trace) mg/dL Urine Glucose (UA) Negative (Negative) mg/dL Assessment and Plan (1) Dysphagia: Status: Acute (2) Odynophagia: Status: Acute (3) GERD (gastroesophageal reflux disease): Status: Acute Plan 21 YM with asthma, IBS and generalized anxiety disorder seen at [facility] on 02/23/22 for evaluation of dysphagia and odynophagia.? Patient is status post surgery for transposition of the great arteries in childhood. Pt has a hx of asthma in childhood and nut allergies ( pistachios) Symptoms of dysphagia and odynophagia can be due to GERD with erosive esop hagitis and stricture, Schatzki's ring or eosinophilic esophagitis. RECOMMENDATIONS: Proceed with upper endoscopy and possible dilation for further evaluation. EGD procedure and potential complications including bleeding, perforation, reaction to anesthetics and aspiration were reviewed with the patient. He would like to proceed with EGD. Procedures Date of Service Date of Service: 02/24/22
--- NOTE | 2022-02-24 08:26 | PHA.MEDREC ---
Pharmacy Consult ? Medication Reconciliation Pharmacy has completed the medication reconciliation.
[2022-02-24] MEDS: Dextrose 5 % and 0.45 % NaCl 1,000 ML 100 ML IVCONT (09:26)
--- NOTE | 2022-02-24 10:04 | HO.ANESPROP2 ---
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 Denies SOB, palpitations, fatigue Heart murmur Past Medical History Medical History (Updated 02/24/22 @ 10:24 by Isela Floyd MD) Asthma Generalized anxiety disorder Irritable bowel syndrome Family History Family history of problems with anesthesia: No Surgical History Surgical History Transposition of the great arteries History of Problems with Anesthesia: No Social History Social History Household Members: Family Housing: House Do you presently have visiting nurse or other home services: No Alcohol intake: current Alcohol intake frequency: holidays/special occasions only Patient Tobacco Use Status: Never used Tobacco e-Cigarette/Vaping Use: Never Used Second Hand Smoke Exposure: No Use of substances other than those prescribed or required for medical reasons: No Have you been hit, kicked, punched, or otherwise hurt by someone within the past year? If so, by whom?: No Do you feel safe in your current relationship?: No Current Relationship Is there a partner from a previous relationship who is making you feel unsafe now?: No Are you made to feel afraid or neglected: No Are you DNR?: No Advance Directives: No Advance Directives Information Provided: No Do you have thoughts of harming others: None Do you have a plan to hurt others: No Plan Recently lost weight without trying: No Eating poorly because of decreased appetite: No Nutrition Risks: No Nutritional Risk Poor oral hygiene: No Current occupational status: employed Meds Allergies Allergy/AdvReac Type Severity Reaction Status Date / Time pistachio nut Allergy Anaphylaxis Verified 02/24/22 08:47 Active Medications: Current Medications Acetaminophen (Acetaminophen 325 Mg Tablet) 650 mg PO Q6H PRN PRN Reason: Pain, Mild (Pain Scale 1-3) Dextrose/Sodium Chloride (D51/2ns) 1,000 mls @ 100 mls/hr IVCONT .Q10H [facility] Last Infusion: 02/24/22 09:26 Dose: 0 mls/hr Melatonin (Melatonin 3 Mg Tablet) 6 mg PO BEDTIME PRN PRN Reason: Insomnia Ondansetron HCl (Ondansetron Hcl 4 Mg/2 Ml Vial) 4 mg IVPUSH Q8H PRN PRN Reason: Nausea and Vomiting Pharmacy Consult (Consult Rx Perform Med Rec) 1 each MISCELLANE ONCE PRN PRN Reason: Consult order Sodium Chloride (0.9 % Sodium Chloride Flush 3 Ml Syringe) 3 ml IVFLUSH QSHIFT [facility] Last Admin: 02/24/22 08:46 Dose: 3 ml Home Medications Medication Instructions Recorded Confirmed Last Taken Type calcium carbonate 500 mg calcium 500 mg PO BID PRN Indigestion 02/24/22 02/24/22 Unknown History (1,250 mg) chewable tablet Exam Exam Date and Time: February 24, 2022 1004 Height,Weight and Vital Signs: Height 6 ft 2 in Weight 63.503 kg Last Vital Signs Temp 99.4 F 02/24/22 09:43 Pulse 88 02/24/22 09:43 Resp 18 02/24/22 09:43 BP 142/67 H 02/24/22 09:43 Pulse Ox 98 02/24/22 09:43 O2 Del Method 02/24/22 09:43 Pertinent Lab Results Pertinent Lab Results: Laboratory Tests 02/23/22 02/23/22 02/23/22 14:59 14:59 14:59 WBC 5.6 RBC 5.82 H Hgb 16.7 Hct 48.7 MCV 83.7 MCH 28.7 MCHC 34.3 RDW 12.9 Plt Count 174 D MPV 9.8 Immature Gran % (Auto) 0.4 Neut % (Auto) 59.1 Lymph % (Auto) 27.5 Reynolds % (Auto) 9.4 Eos % (Auto) 3.1 Baso % (Auto) 0.5 Lymph # (Auto) 1.5 [place] # (Auto) 0.5 Eos # (Auto) 0.2 Baso # (Auto) 0.0 Abs Immat Gran (auto) 0.02 Absolute Neuts (auto) 3.3 Absolute Nucleated RBC 0.000 Nucleated RBC % (auto) 0.0 Sodium 139 Potassium 3.8 Chloride 101 Carbon Dioxide 24 Anion Gap 18 BUN 13 Creatinine 0.86 Estim Creat Clear Calc 121.7 Estimated GFR > 60 Random Glucose 84 D Calcium 9.9 D Total Bilirubin 1.6 H Direct Bilirubin 0.7 H AST 16 ALT 9 Alkaline Phosphatase 88 D Troponin I High Sens Total Protein 7.4 Albumin 5.1 H Lipase 25 Urine Color Urine Appearance Urine pH Ur Specific [place] Urine Protein Urine Glucose (UA) Urine Ketones Urine Blood Urine Nitrite Ur Leukocyte Esterase Urine Opiates Screen Urine Fentanyl Screen Ur Barbiturates Screen Ur Phencyclidine Scrn Ur Amphetamines Screen U Benzodiazepines Scrn Urine Cocaine Screen U Marijuana (THC) Screen COVID-19 (GUTIERREZ) Negative COVID-19 Clin Com See Note 02/23/22 02/23/22 02/23/22 14:59 20:37 21:18 WBC RBC Hgb Hct MCV MCH MCHC RDW Plt Count MPV Immature Gran % (Auto) Neut % (Auto) Lymph % (Auto) [place] % (Auto) Eos % (Auto) Baso % (Auto) Lymph # (Auto) [place] # (Auto) Eos # (Auto) Baso # (Auto) Abs Immat Gran (auto) Absolute Neuts (auto) Absolute Nucleated RBC Nucleated RBC % (auto) Sodium Potassium Chloride Carbon Dioxide Anion Gap BUN Creatinine Estim Creat Clear Calc Estimated GFR Random Glucose Calcium Total Bilirubin Direct Bilirubin AST ALT Alkaline Phosphatase Troponin I High Sens 15.6 14.1 Total Protein Albumin Lipase Urine Color Yellow Urine Appearance Clear Urine pH 6.0 Ur Specific [place] <= 1.005 Urine Protein Negative Urine Glucose (UA) Negative Urine Ketones 40 Urine Blood Negative Urine Nitrite Negative Ur Leukocyte Esterase Negative Urine Opiates Screen Urine Fentanyl Screen Ur Barbiturates Screen Ur Phencyclidine Scrn Ur Amphetamines Screen U Benzodiazepines Scrn Urine Cocaine Screen U Marijuana (THC) Screen COVID-19 (GUTIERREZ) COVID-19 Clin Com 02/23/22 21:18 WBC RBC Hgb Hct MCV MCH MCHC RDW Plt Count MPV Immature Gran % (Auto) Neut % (Auto) Lymph % (Auto) [place] % (Auto) Eos % (Auto) Baso % (Auto) Lymph # (Auto) [place] # (Auto) Eos # (Auto) Baso # (Auto) Abs Immat Gran (auto) Absolute Neuts (auto) Absolute Nucleated RBC Nucleated RBC % (auto) Sodium Potassium Chloride Carbon Dioxide Anion Gap BUN Creatinine Estim Creat Clear Calc Estimated GFR Random Glucose Calcium Total Bilirubin Direct Bilirubin AST ALT Alkaline Phosphatase Troponin I High Sens Total Protein Albumin Lipase Urine Color Urine Appearance Urine pH Ur Specific [place] Urine Protein Urine Glucose (UA) Urine Ketones Urine Blood Urine Nitrite Ur Leukocyte Esterase Urine Opiates Screen Not Detected Urine Fentanyl Screen Not Detected Ur Barbiturates Screen Not Detected Ur Phencyclidine Scrn Not Detected Ur Amphetamines Screen Not Detected U Benzodiazepines Scrn Not Detected Urine Cocaine Screen Not Detected U Marijuana (THC) Screen Not Detected COVID-19 (GUTIERREZ) COVID-19 Clin Com Airway Mallampati Class: II TM Dist: >3cm Neck ROM: Full Loose/Missing/Broken Teeth: No (Denies broken or loose teeth) Heart: RRR + murmur Lungs: CTAB Assessment and Plan Assessment Anesthesia Assessment: Anesthesia Plan Discussed and Chart Reviewed Final Anesthetic Review Family History of Problems with Anesthesia: No History of Problems with Anesthesia: No NPO: Yes ASA Class: III Final Preanesthetic Review: No Changes in Pt Med Stat, Meds/Allgs Chart Reviewed, Consent Obtained/Reviewed and Anes Risks/Benef Reviewed Patient Risk: Intermediate Procedure Risk: Low Assessment/Block/Sedation in SS: Assess/Block/Sedation-SS Anesthetic Plan Anesthetic Plan: MAC: Disposition: Standard PACU
--- NOTE | 2022-02-24 10:56 | PM.OP ---
Brief Operative Note Date of Service: 02/24/22 Pre-op diagnosis: Dysphagia, odynophagia Post-op diagnosis: other ( Esophageal ulcer, gastritis, multiple duodenal ulcers) Procedure: EGD WITH BIOPSIES AND ESOPHAGEAL BALLOON DILATION. Surgeon: Noni Paredes MD Anesthesia: MAC Was an Drum Reel Cutter used for this Procedure?: Yes Drum Reel Cutter: Dominic Zhu Estimated blood loss (mL): 0 Pathology: other (A) BX Gastric Antrum (R/O H.Pylori) B) BX GE Junction C) BX Proximal Esophagus (R/O Eosinophilic Esophagitis)) Condition: stable Disposition: PACU
--- NOTE | 2022-02-24 10:58 | W.PM.OPN ---
Operative Note Operative Note Date of Service: 02/24/22 Narrative: Pre-op diagnosis: Dysphagia, odynophagia Post-op diagnosis:?other (Esophageal ulcer,? gastritis, multiple duodenal ulcers) Surgeon: Noni Paredes MD Anesthesia:?MAC FLEXIBLE TRANSORAL UPPER GASTROINTESTINAL ENDOSCOPY WITH BIOPSIES Consent: Indications for the procedure and potential complications of bleeding, perforation, reaction to medications and missed diagnosis were discussed with the patient and informed consent was obtained. Instrument: Olympus GIF H 190 mid size upper endoscope Monitoring: Vital signs and clinical assessment, continuous EKG monitoring, Pulse oximetry, Carbon Dioxide monitoring and blood pressure monitoring were done throughout the procedure. Procedure: The patient was placed in the left lateral decubitis position and pre-procedure medications were administered and a bite block was placed. The endoscope was inserted into the mouth and advanced under direct vision to the third part of duodenum. A careful inspection was made as the upper endoscope was withdrawn including a retroflexed examination of the proximal stomach; Findings and interventions are described below. Findings: Larynx: Normal Esophagus: A 1 x 2 cms linear superficial ulcer in the mid esophagus from 25 to 28 cms. Circular rings in the proximal esophagus - biopsies were obtained to check for EOE. A few 8 to 10 mm benign appearing nodules at the GEJ - biopsied. GE junction at 38 cms. Mild resistance on passage of a midsize endoscope through the GEJ. Esophageal balloon dilation was performed with a 13 and 14 mm CRE balloon x 60 sec at each level. Some heme and a superficial mucosal tear noted post dilation Stomach: Mild gastric erythema. Biopsies were obtained. Grade 2 flap valve on retroflexed examination of the cardia. Duodenum: Multiple 5 - 10 mm ulcers in the bulb and normal descending duodenum Intervention: Biopsies as noted above Impression and Post Procedure Diagnosis: Endoscopy Findings: ESOPHAGUS: A 1 x 2 cms linear superficial ulcer in the mid esophagus from 25 to 28 cms - likely cause of odynophagia. Circular rings in the proximal esophagus - biopsies were obtained to check for EOE. GE junction at 38 cms. A few 8 to 10 mm benign appearing nodules at the GE junction - biopsied. Mild resistance on passage of a midsize endoscope through the GEJ. Esophageal balloon dilation was performed with a 13 and 14 mm CRE balloon x 60 sec at each level. Some heme and a superficial mucosal tear noted post dilation STOMACH: Mild gastric erythema. Biopsies were obtained. DUODENUM: Multiple 5 - 10 mm ulcers in the bulb and normal descending duodenum Plan: Await pathology results. Switch to PO PPI twice daily Liquid Carafate 1 gram twice daily x 2 weeks OK to DC home today and FU in the GI Clinic with Noni Paredes M.D. Repeat EGD in 8 to 12 weeks if pt continues to have dysphagia. Above findings were reviewed with the patient.
--- NOTE | 2022-02-24 11:51 | P.PNIM_ITS ---
Subjective Subjective Date of Service: 02/24/22 Interval History: seen and examined this AM mother ricky awaiting EGD no new complaints reports dysphagia / odynophagia since child robledo, no prior egd Review of Systems negative except HPI Physical Exam Vital Signs: Vital Signs: Last Vital Signs Temp 99.0 F 02/24/22 11:24 Pulse 69 02/24/22 11:24 Resp 20 02/24/22 11:24 BP 115/62 02/24/22 11:24 Pulse Ox 96 02/24/22 11:24 O2 Del Method 02/24/22 11:24 BMI result Body Mass Index 17.9 Const: Other: General - no acute distress, appears comfortable Cardiovascular - regular rate and rhythm, S1-S2 Lungs - normal respiratory effort, clear to auscultation bilaterally, no wheezing Abdomen - soft, nontender, no rebound or guarding Extremities - no edema bilaterally Neuro - awake and alert, no focal deficits Objective Data Active Medications Acetaminophen (Acetaminophen 325 Mg Tablet) 650 mg PO Q6H PRN PRN Reason: Pain, Mild (Pain Scale 1-3) Dextrose/Sodium Chloride (D51/2ns) 1,000 mls @ 100 mls/hr IVCONT .Q10H [facility] Last Infusion: 02/24/22 09:26 Dose: 0 mls/hr Documented By: ANILA Lactated Ringer's (Lr) 1,000 mls @ 50 mls/hr IVCONT .Q20H [facility] Melatonin (Melatonin 3 Mg Tablet) 6 mg PO BEDTIME PRN PRN Reason: Insomnia Ondansetron HCl (Ondansetron Hcl 4 Mg/2 Ml Vial) 4 mg IVPUSH Q8H PRN PRN Reason: Nausea and Vomiting Ondansetron HCl (Ondansetron Hcl 4 Mg/2 Ml Vial) 4 mg IVPUSH ONCE PRN PRN Reason: Nausea and Vomiting Pharmacy Consult (Consult Rx Perform Med Rec) 1 each MISCELLANE ONCE PRN PRN Reason: Consult order Sodium Chloride (0.9 % Sodium Chloride Flush 3 Ml Syringe) 3 ml IVFLUSH QSHIFT [facility] Last Admin: 02/24/22 08:46 Dose: 3 ml Documented By: ANILA Labs CBC & Chem 7: 02/23/22 14:59 02/23/22 14:59 Labs: Laboratory Results - last 24 hr 02/23/22 02/23/22 02/23/22 14:59 14:59 14:59 MCV 83.7 MCH 28.7 MCHC 34.3 RDW 12.9 Plt Count 174 D MPV 9.8 Immature Gran % (Auto) 0.4 Neut % (Auto) 59.1 Lymph % (Auto) 27.5 [place] % (Auto) 9.4 Eos % (Auto) 3.1 Baso % (Auto) 0.5 Lymph # (Auto) 1.5 [place] # (Auto) 0.5 Eos # (Auto) 0.2 Baso # (Auto) 0.0 Abs Immat Gran (auto) 0.02 Absolute Neuts (auto) 3.3 Absolute Nucleated RBC 0.000 Nucleated RBC % (auto) 0.0 Anion Gap 18 Estim Creat Clear Calc 121.7 Estimated GFR > 60 Random Glucose 84 D Calcium 9.9 D Total Bilirubin 1.6 H Direct Bilirubin 0.7 H AST 16 ALT 9 Alkaline Phosphatase 88 D Troponin I High Sens Total Protein 7.4 Albumin 5.1 H Lipase 25 Urine Color Urine Appearance Urine pH Ur Specific [place] Urine Protein Urine Glucose (UA) Urine Ketones Urine Blood Urine Nitrite Ur Leukocyte Esterase Urine Opiates Screen Urine Fentanyl Screen Ur Barbiturates Screen Ur Phencyclidine Scrn Ur Amphetamines Screen U Benzodiazepines Scrn Urine Cocaine Screen U Marijuana (THC) Screen COVID-19 (GUTIERREZ) Negative COVID-19 Clin Com See Note 02/23/22 02/23/22 02/23/22 14:59 20:37 21:18 MCV MCH MCHC RDW Plt Count MPV Immature Gran % (Auto) Neut % (Auto) Lymph % (Auto) [place] % (Auto) Eos % (Auto) Baso % (Auto) Lymph # (Auto) [place] # (Auto) Eos # (Auto) Baso # (Auto) Abs Immat Gran (auto) Absolute Neuts (auto) Absolute Nucleated RBC Nucleated RBC % (auto) Anion Gap Estim Creat Clear Calc Estimated GFR Random Glucose Calcium Total Bilirubin Direct Bilirubin AST ALT Alkaline Phosphatase Troponin I High Sens 15.6 14.1 Total Protein Albumin Lipase Urine Color Yellow Urine Appearance Clear Urine pH 6.0 Ur Specific [place] <= 1.005 Urine Protein Negative Urine Glucose (UA) Negative Urine Ketones 40 Urine Blood Negative Urine Nitrite Negative Ur Leukocyte Esterase Negative Urine Opiates Screen Urine Fentanyl Screen Ur Barbiturates Screen Ur Phencyclidine Scrn Ur Amphetamines Screen U Benzodiazepines Scrn Urine Cocaine Screen U Marijuana (THC) Screen COVID-19 (GUTIERREZ) COVID-19 Clin Com 02/23/22 21:18 MCV MCH MCHC RDW Plt Count MPV Immature Gran % (Auto) Neut % (Auto) Lymph % (Auto) [place] % (Auto) Eos % (Auto) Baso % (Auto) Lymph # (Auto) [place] # (Auto) Eos # (Auto) Baso # (Auto) Abs Immat Gran (auto) Absolute Neuts (auto) Absolute Nucleated RBC Nucleated RBC % (auto) Anion Gap Estim Creat Clear Calc Estimated GFR Random Glucose Calcium Total Bilirubin Direct Bilirubin AST ALT Alkaline Phosphatase Troponin I High Sens Total Protein Albumin Lipase Urine Color Urine Appearance Urine pH Ur Specific [place] Urine Protein Urine Glucose (UA) Urine Ketones Urine Blood Urine Nitrite Ur Leukocyte Esterase Urine Opiates Screen Not Detected Urine Fentanyl Screen Not Detected Ur Barbiturates Screen Not Detected Ur Phencyclidine Scrn Not Detected Ur Amphetamines Screen Not Detected U Benzodiazepines Scrn Not Detected Urine Cocaine Screen Not Detected U Marijuana (THC) Screen Not Detected COVID-19 ([facility]IERRE[facility]) COVID-19 Clin Com Assessment and Plan (1) Dysphagia: Status: Acute Plan 21 yo M with a long standing history of odynophagia / dysphagia but acutely worsened after a meal earlier this week. 1. Odynopahgia EGD today IVF f/u GI recs after EGD anticipate d/c home today if EGD without significant findings Quality Stroke Does the patient have a stroke diagnosis?: No VTE Prior VTE?: No VTE Risk Level:: Medical - low VTE Device Contraindication: Treatment Not Indicated VTE Drug Contraindication: Treatment Not Indicated
--- NOTE | 2022-02-24 13:05 | MHC.CM.PN ---
CM MET WITH PT AND MOTHER. LIVES IN A HOUSE WITH MOM. NO SERVICES OR DME. NO HCP BUT WILLING TO DO ONE WHILE HERE. NO COVID VAX. PCP DR. OLIVO. DP: HOME NO SERVICES MOTHER WILL TRANSPORT
--- NOTE | 2022-02-24 14:34 | P.DS_ITS ---
DS: Providers Provider Date of Service: 02/24/22 Date of admission: 02/23/22 23:55 Primary care physician: Fredrick Haney MD Consults: 02/23/22 23:57 Consult to Gastroenterology Routine Consulting Provider: Noni Paredes Reason for consultation: esophageal discomfort DS: Diagnosis Discharge Diagnosis (1) Dysphagia: Status: Acute (2) Esophageal ulcer: Status: Acute (3) Esophagitis: Status: Acute (4) Status post dilation of esophageal narrowing: Status: Acute DS: Summary Hospital Course Hospital Course: HPI from the admission H&P: This is a 21-year-old male who is not on any prescription medications presents to the emergency department for evaluation of odynophagia.? Patient states he had hot food, portion of beef and vegetables on Sunday and since then has been having burning pain in his esophagus and upper chest every time he eats.? Patient has had reduced p.o. intake due to the same.? Denies any difficulty swallowing.? Patient denies fever or chills but does have nausea.? No episodes of vomiting.? On further questioning, states he has had off and on symptoms of food getting stuck in his esophagus/upper chest since many years.? He has never been evaluated for it.? Barium swallow study and upper endoscopy was ordered outpatient but he still has not undergone those studies.? Patient denies palpitations, shortness of breath, abdominal pain, changes in urinary or bowel habits.? No symptoms of gastroesophageal reflux disease.? Never saw a GI doctor and never has gotten and upper endoscopy done.? He does not have any pertinent past medical history and is not on any prescription medications.? Had TOF repair as a child. In the emergency department, Gastroenterology was consulted who requested admission to medicine floor and will evaluate in the morning with possible endoscopy. Hospital Course: Patient was started on PPI, IVF and made NPO. He was evaluated by GI underwent endoscopy which revealed the following: Larynx:? Normal Esophagus: A 1 cms x 2 cms linear ulcer in the mid esophagus from 25 to 28 cms. Circular rings in the proximal esophagus - biopsies obtained to check for EOE. A few 8 to 10 mm benign appearing nodules at the GEJ - biopsied. GE junction at 38 cms.? Mild resistance on passage of the scope through the GEJ. Esophageal balloon dilation was performed with a 13 and 14 mm CRE balloon x 60 sec at each level. Some heme and superficial mucosal tear noted post dilation Stomach: Mild gastric erythema. Biopsies were obtained. Grade 2 flap valve on retroflexed examination of the cardia. Duodenum: Multiple 5 - 10 mm ulcers in the bulb and normal descending duodenum He was switched to oral PPI and started on carafate. He is tolerating diet and will be d/c home. He is to take prilosec until seen by GI in 4-6 weeks. He should take carafate BID x 2 weeks. He has been advised to avoid NSAIDS. Time Spent with Patient Time attestation: Total time spent providing and/or coordinating discharge services: Discharge coordination time: Less than 30 minutes Quality: Safe Use of Opioids Does Pt have an Active Cancer Diagnosis on the Problem List?: No Quality: Stroke Does the patient have a stroke diagnosis?: No Physical Exam Vital Signs: Vital Signs: Last Vital Signs Temp 98.0 F 02/24/22 12:02 Pulse 68 02/24/22 12:02 Resp 18 02/24/22 12:02 BP 118/60 02/24/22 12:02 Pulse Ox 98 02/24/22 12:02 O2 Del Method 02/24/22 12:02 BMI result Body Mass Index 17.9 Const: Other: General - no acute distress, appears comfortable Cardiovascular - regular rate and rhythm, S1-S2 Lungs - normal respiratory effort, clear to auscultation bilaterally, no wheezing Abdomen - soft, nontender, no rebound or guarding Extremities - no edema bilaterally Neuro - awake and alert, no focal deficits DS: Data Data Completed and Pending Pending studies at discharge: Pending at discharge 02/24/22 10:36 Surgical [PTH] Routine Labs on day of discharge: Laboratory Results - last 24 hr 02/23/22 02/23/22 02/23/22 14:59 14:59 14:59 WBC 5.6 RBC 5.82 H Hgb 16.7 Hct 48.7 MCV 83.7 MCH 28.7 MCHC 34.3 RDW 12.9 Plt Count 174 D MPV 9.8 Immature Gran % (Auto) 0.4 Neut % (Auto) 59.1 Lymph % (Auto) 27.5 [place] % (Auto) 9.4 Eos % (Auto) 3.1 Baso % (Auto) 0.5 Lymph # (Auto) 1.5 [place] # (Auto) 0.5 Eos # (Auto) 0.2 Baso # (Auto) 0.0 Abs Immat Gran (auto) 0.02 Absolute Neuts (auto) 3.3 Absolute Nucleated RBC 0.000 Nucleated RBC % (auto) 0.0 Sodium 139 Potassium 3.8 Chloride 101 Carbon Dioxide 24 Anion Gap 18 BUN 13 Creatinine 0.86 Estim Creat Clear Calc 121.7 Estimated GFR > 60 Random Glucose 84 D Calcium 9.9 D Total Bilirubin 1.6 H Direct Bilirubin 0.7 H AST 16 ALT 9 Alkaline Phosphatase 88 D Troponin I High Sens Total Protein 7.4 Albumin 5.1 H Lipase 25 Urine Color Urine Appearance Urine pH Ur Specific [place] Urine Protein Urine Glucose (UA) Urine Ketones Urine Blood Urine Nitrite Ur Leukocyte Esterase Urine Opiates Screen Urine Fentanyl Screen Ur Barbiturates Screen Ur Phencyclidine Scrn Ur Amphetamines Screen U Benzodiazepines Scrn Urine Cocaine Screen U Marijuana (THC) Screen COVID-19 (GUTIERREZ) Negative COVID-19 Clin Com See Note 02/23/22 02/23/22 02/23/22 14:59 20:37 21:18 WBC RBC Hgb Hct MCV MCH MCHC RDW Plt Count MPV Immature Gran % (Auto) Neut % (Auto) Lymph % (Auto) [place] % (Auto) Eos % (Auto) Baso % (Auto) Lymph # (Auto) [place] # (Auto) Eos # (Auto) Baso # (Auto) Abs Immat Gran (auto) Absolute Neuts (auto) Absolute Nucleated RBC Nucleated RBC % (auto) Sodium Potassium Chloride Carbon Dioxide Anion Gap BUN Creatinine Estim Creat Clear Calc Estimated GFR Random Glucose Calcium Total Bilirubin Direct Bilirubin AST ALT Alkaline Phosphatase Troponin I High Sens 15.6 14.1 Total Protein Albumin Lipase Urine Color Yellow Urine Appearance Clear Urine pH 6.0 Ur Specific [place] <= 1.005 Urine Protein Negative Urine Glucose (UA) Negative Urine Ketones 40 Urine Blood Negative Urine Nitrite Negative Ur Leukocyte Esterase Negative Urine Opiates Screen Urine Fentanyl Screen Ur Barbiturates Screen Ur Phencyclidine Scrn Ur Amphetamines Screen U Benzodiazepines Scrn Urine Cocaine Screen U Marijuana (THC) Screen COVID-19 (GUTIERREZ) COVID-19 Clin Com 02/23/22 21:18 WBC RBC Hgb Hct MCV MCH MCHC RDW Plt Count MPV Immature Gran % (Auto) Neut % (Auto) Lymph % (Auto) [place] % (Auto) Eos % (Auto) Baso % (Auto) Lymph # (Auto) [place] # (Auto) Eos # (Auto) Baso # (Auto) Abs Immat Gran (auto) Absolute Neuts (auto) Absolute Nucleated RBC Nucleated RBC % (auto) Sodium Potassium Chloride Carbon Dioxide Anion Gap BUN Creatinine Estim Creat Clear Calc Estimated GFR Random Glucose Calcium Total Bilirubin Direct Bilirubin AST ALT Alkaline Phosphatase Troponin I High Sens Total Protein Albumin Lipase Urine Color Urine Appearance Urine pH Ur Specific [place] Urine Protein Urine Glucose (UA) Urine Ketones Urine Blood Urine Nitrite Ur Leukocyte Esterase Urine Opiates Screen Not Detected Urine Fentanyl Screen Not Detected Ur Barbiturates Screen Not Detected Ur Phencyclidine Scrn Not Detected Ur Amphetamines Screen Not Detected U Benzodiazepines Scrn Not Detected Urine Cocaine Screen Not Detected U Marijuana (THC) Screen Not Detected COVID-19 (GUTIERREZ) COVID-19 Clin Com Discharge Plan Discharge Anticipated Discharge Date/Time: 02/24/22 14:30 Patient Disposition: Home, Self-Care Discharge Diagnosis: [facility] Referrals: Noni Paredes MD [Physician] - 1 Month Po,Fredrick Young MD [Primary Care Provider] - 1 Week Discharge Medications: New sucralfate 100 mg/mL suspension 10 ml PO BID 14 Days Qty: 280 0RF omeprazole 20 mg capsule,delayed release(DR/EC) 20 mg PO BID Qty: 60 0RF Continued calcium carbonate 500 mg calcium (1,250 mg) Tablet,Chewable 500 mg PO BID PRN (Reason: Indigestion) Discharge Orders: Discharge Order (Routine); Ordered 02/24/22 Ordered By: Gurmeet Mcgregor Diet: Advance to usual diet Activity on Discharge: As tolerated Stand Alone Forms: Patient Portal Discharge page Care Plan Goals: To stay healthy and out of the hospital. Health Concerns: [facility] Plan of Treatment: Take prilosec (omeprazole) 20 mg, twice daily Take Carafate 1g twice daily for the next 2 [address] up with Dr. Paredes in the GI clinic Do no take NSAIDS (Medicines like Advil, Motrin, Ibuprofen, etc.) Assessment: see d/c summary
--- NOTE | 2022-02-24 15:03 | MHC.CM.PN ---
DP: PT MEDICALLY CLEARED TO DC HOME, NO SERVICES. MOTHER WILL TRANSPORT. RN NOTIFIED
== END 2022-02-24 15:55 | disposition home or self-care (01) | DRG 243 ==
LOC: HO.ED 02-24 01:26 → HO.EDOVER 02-24 01:39 → HO.S3 02-24 05:46
PROVIDERS: Internal Medicine Gastroenterology; Nurse Practitioner Family; Admitting Provider Student in an Organized Health Care Education/Training Program; Emergency Provider Emergency Medicine; PCP Internal Medicine; Visit Provider Family Medicine
PROC: 0DB28ZX Excision of Middle Esophagus, Via Natural or Artificial Opening Endoscopic, Diagnostic (ICD-10-PCS; principal; 2022-02-24 15:20)
DX: K22.10 Ulcer of esophagus without bleeding (principal); K26.9 Duodenal ulcer, unspecified as acute or chronic, without hemorrhage or perforation; F41.1 Generalized anxiety disorder; K21.9 Gastro-esophageal reflux disease without esophagitis; Z20.822 Contact with and (suspected) exposure to COVID-19
CPT/HCPCS: 36415; 70460; 70491; 71260; 80053; 80307; 81003; 82248; 83690; 84484; 85025; 87635; 88305; 88342; 93005; 99285; J2250; Q9967

== ENCOUNTER 2022-06-08 12:35 | Emergency (ER) | payer BC, OTHER, SELFPAY ==
--- NOTE | ~2022-06-08 | XR_ITS ---
EXAMINATION: XR CHEST CLINICAL INFORMATION: Chest pain COMPARISON: None TECHNIQUE: Frontal view of the chest was obtained. 1:40 PM FINDINGS: No airspace consolidation or pneumothorax. Pulmonary vascularity does not appear congested. Pleural surfaces are clear. Status post median sternotomy. XR/XR chest 1V IMPRESSION: No evidence for acute process. Status post median sternotomy.
--- NOTE | 2022-06-08 12:58 | ED.CHESTPAIN ---
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 Pain is not exertional. Feels better if he takes a deep breath. No associated abdominal pain, nausea, vomiting, fevers, chills, cough, shortness of breath, black or bloody stools. No leg swelling or leg pain. No recent travel or sick contact. No history DVT or PE. No family history of same. Patient reports he did speech is primary care and it was recommended that he restart omeprazole and Carafate. These prescriptions were sent to his pharmacy. He has been off PPI for several months now. <Sari Moore NP - Last Filed: 06/08/22 19:32> Related Data Home Medications: Previous Rx's Medication Instructions Recorded omeprazole magnesium 10 mg oral 20 mg PO BID 30 days #60 ea 06/08/22 suspension,delayed release sucralfate 100 mg/mL oral 10 ml PO BID 14 days #280 mL 06/08/22 suspension <YEFRI Camacho Last Filed: 06/08/22 13:04> Allergies/Adverse Reactions: Allergies Allergy/AdvReac Type Severity Reaction Status Date / Time pistachio nut Allergy Anaphylaxis Verified 03/02/22 12:15 <YEFRI Camacho Last Filed: 06/08/22 13:04> Review of Systems Review of Systems: Yes all other systems are reviewed and are negative <Sari Moore NP - Last Filed: 06/08/22 19:32> Constitutional: Constitutional: Reports no additional constitutional complaints, Denies body ache(s), Denies chills, Denies fever(s), Denies headache(s) and Denies weakness <Sari Moore NP - Last Filed: 06/08/22 19:32> Eyes: Eyes: Reports no additional eye complaints and Denies change in vision <Sari Moore NP - Last Filed: 06/08/22 19:32> ENT: Reports system reviewed and no additional complaints, except as documented, Denies dizziness, Denies headache(s), Denies nasal congestion, Denies nasal discharge and Denies neck pain <Sari Moore NP - Last Filed: 06/08/22 19:32> Cardiovascular: Cardiovascular: Reports no additional cardiovascular complaints, Reports chest pain, Denies leg edema and Denies dyspnea <Sari Moore FORESTRY HUNTER - Last Filed: 06/08/22 19:32> Respiratory: Respiratory: Reports no additional respiratory complaints, Denies cough and Denies dyspnea <Sari Moore NP - Last Filed: 06/08/22 19:32> Gastrointestinal: Gastrointestinal: Reports no additional gastrointestinal complaints, Denies abdominal pain, Denies diarrhea, Denies nausea and Denies vomiting <Sari Moore NP - Last Filed: 06/08/22 19:32> Genitourinary: Genitourinary: Denies urinary incontinence <Sari Moore NP - Last Filed: 06/08/22 19:32> Musculoskeletal: Musculoskeletal: Reports no additional musculoskeletal complaints, Denies back pain, Denies arthralgias, Denies joint swelling, Denies neck pain, Denies numbness and Denies tingling <Sari Moore NP - Last Filed: 06/08/22 19:32> Integumentary/Breasts: Skin/Breast: Reports system reviewed and no additional complaints, except as docu and Denies rash <Sari Moore FORESTRY HUNTER - Last Filed: 06/08/22 19:32> Neurologic: Reports system reviewed and no additional complaints, except as documented, Denies Abnormal speech present, Denies dizziness, Denies headache(s), Denies numbness, Denies tingling and Denies weakness <Sari Moore NP - Last Filed: 06/08/22 19:32> PMFSH Past Medical History Attestation statement: The following information was validated with the patient. <Sari Moore NP - Last Filed: 06/08/22 19:32> Source: old records reviewed and nursing notes reviewed <Sari Moore NP - Last Filed: 06/08/22 19:32> Medical History: Medical History Asthma Chest pain Dysphagia Generalized anxiety disorder GERD (gastroesophageal reflux disease) Irritable bowel syndrome Odynophagia <YEFRI Camacho - Last Filed: 06/08/22 13:04> Surgical History: Surgical History Transposition of the great arteries <YEFRI Camacho - Last Filed: 06/08/22 13:04> Family History Family History: Family History Other Stomach cancer <YERFI Camacho - Last Filed: 06/08/22 13:04> Social History Social History: Social History Household Members: Family Housing: Other Do you presently have visiting nurse or other home services: No Alcohol intake: current Alcohol intake frequency: holidays/special occasions only Patient Tobacco Use Status: Never used Tobacco e-Cigarette/Vaping Use: Never Used Second Hand Smoke Exposure: No Advance Directives: Yes Advance Directives on File: Yes Advance Directives Date on File: 02/27/22 service: No Current occupational status: employed Cognitive needs: No Hearing needs: No Vision needs: No <YEFRI Camacho - Last Filed: 06/08/22 13:04> Physical Exam Vital Signs: Vital Signs: Last Vital Signs Temp 98.2 F 06/08/22 18:29 Pulse 72 06/08/22 18:29 Resp 18 06/08/22 18:29 BP 146/80 H 06/08/22 18:29 Pulse Ox 99 06/08/22 18:29 O2 Del Method 06/08/22 18:29 BMI result Body Mass Index 19.1 <Kait Hayes PA - Last Filed: 06/08/22 13:04> Vital Signs: Last Vital Signs Temp 98.2 F 06/08/22 18:29 Pulse 72 06/08/22 18:29 Resp 18 06/08/22 18:29 BP 146/80 H 06/08/22 18:29 Pulse Ox 99 06/08/22 18:29 O2 Del Method 06/08/22 18:29 BMI result Body Mass Index 19.1 <Sari Moore NP - Last Filed: 06/08/22 19:32> Const: General: cooperative, healthy appearing, comfortable and no acute distress <Sari Moore NP - Last Filed: 06/08/22 19:32> Orientation/consciousness: patient oriented x3 <Sari Moore NP - Last Filed: 06/08/22 19:32> Limitations: no limitations <Sari Moore NP - Last Filed: 06/08/22 19:32> HEENT: Head: Yes normal to inspection <Sari Moore NP - Last Filed: 06/08/22 19:32> Ears: hearing grossly normal bilaterally <Sari Moore NP - Last Filed: 06/08/22 19:32> General nose exam: Normal external nose present <Sari Moore NP - Last Filed: 06/08/22 19:32> Face and sinus: Yes normal facial exam <Sari Moore NP - Last Filed: 06/08/22 19:32> Mouth: Normal oral and palatal mucosa present <Sari Moore NP - Last Filed: 06/08/22 19:32> Throat: Yes posterior oropharynx normal <Sari Moore NP - Last Filed: 06/08/22 19:32> Eyes: General: appearance normal, both eyes and all related structures <Sari Moore FORESTRY HUNTER - Last Filed: 06/08/22 19:32> Pupils: Equal, round and reactive pupils present <Sari Moore FORESTRY HUNTER - Last Filed: 06/08/22 19:32> Neck: Neck: Yes normal visual inspection <Sari Moore FORESTRY HUNTER - Last Filed: 06/08/22 19:32> Chest: Chest palpation & inspection: normal inspection of the chest <Sari Moore FORESTRY HUNTER - Last Filed: 06/08/22 19:32> Resp: Effort & Inspection: normal respiratory effort <Sari Moore FORESTRY HUNTER - Last Filed: 06/08/22 19:32> Auscultation: clear to auscultation bilaterally <Sari Moore FORESTRY HUNTER - Last Filed: 06/08/22 19:32> Cardio: Rate: regular rate <Sari Moore FORESTRY HUNTER - Last Filed: 06/08/22 19:32> Rhythm: regular rhythm <Sari Moore FORESTRY HUNTER - Last Filed: 06/08/22 19:32> Heart sounds: Murmur heart sound present <Sari Moore FORESTRY HUNTER - Last Filed: 06/08/22 19:32> Peripheral pulses: Peripheral pulses 2+ throughout <Sari Moore FORESTRY HUNTER - Last Filed: 06/08/22 19:32> GI: Inspection: Yes normal to inspection <Sari Moore FORESTRY HUNTER - Last Filed: 06/08/22 19:32> Palpation (GI): Soft to palpation and nontender <Sari Moore FORESTRY HUNTER - Last Filed: 06/08/22 19:32> Auscultation: normal bowel sounds <Sari Moore FORESTRY HUNTER - Last Filed: 06/08/22 19:32> Back/Spine/Pelvis: Thoracic/Lumbar Spine: thoracic and lumbar spine normal to inspection <Sari Moore FORESTRY HUNTER - Last Filed: 06/08/22 19:32> Skin: General skin exam: no rashes or lesions noted <Sari Moore FORESTRY HUNTER - Last Filed: 06/08/22 19:32> Neuro: General: patient oriented x3, no focal motor deficits and normal sensation to monofilament <Sari Moore NP - Last Filed: 06/08/22 19:32> Cranial nerves: Yes Equal, round and reactive pupils present <Sari Moore NP - Last Filed: 06/08/22 19:32> Cognition (Neuro): normal cognition <Sari Moore NP - Last Filed: 06/08/22 19:32> Speech: No Abnormal speech present <Sari Moore NP - Last Filed: 06/08/22 19:32> Gait exam (Neuro): Normal gait present <Sari Moore NP - Last Filed: 06/08/22 19:32> Motor exam (neuro): 5/5 motor strength present throughout <Sari Moore NP - Last Filed: 06/08/22 19:32> Extrem: General: Yes normal to inspection, Yes no pedal edema and Yes no calf tenderness <Sari Moore NP - Last Filed: 06/08/22 19:32> Course Course Course Narrative: This is an RME: Additional HPI, ROS, PE not included below will be deferred to primary provider. 21 year old male hx of esophageal ulcers, heart surgery as a child presenting w/ cp substernal pressure non radiating ( intermittent) X 2 days. Laying down and breathing makes it better. Tells me his esophageal ulcers sometimes feel like this. Deneis SOB, fevers, chills, nausea, vomiting, abd pain. Plan- labs, ekg, cxr, trop, GI cocktail PE- benign <YEFRI Camacho - Last Filed: 06/08/22 13:04> Reevaluation(s) Reevaluation #1: Labs unremarkable. Chest x-ray an EKG show no acute finding. Low concern for ACS. Patient will be discharged home with recommendations to start the PPI and Carafate that are prescribed by the primary care doctor. Reviewed worrisome signs and symptoms of when to return to the emergency room. Comfortable plan for discharge home. <Sari Moore NP - Last Filed: 06/08/22 19:32> Medications Administered Discontinued Medications Generic Name Dose Route Start Last Admin Trade Name Freq PRN Reason Stop Dose Admin Al Hydroxide/Mg Hydroxide 30 ml 06/08/22 12:58 06/08/22 18:28 Magnesium Hydrox/Alum Hydrox 30 Ml Oral.Susp PO 06/08/22 12:59 30 ml ONCE ONE Administration Belladonna Alkaloids/Phenobarbital 10 ml 06/08/22 12:58 06/08/22 18:28 Phenobarb/Hyoscy/Atropine/Scop 10 Ml Elixir PO 06/08/22 12:59 10 ml ONCE ONE Administration <YEFRI Camacho - Last Filed: 06/08/22 13:04> Medications Administered Discontinued Medications Generic Name Dose Route Start Last Admin Trade Name Freq PRN Reason Stop Dose Admin Al Hydroxide/Mg Hydroxide 30 ml 06/08/22 12:58 06/08/22 18:28 Magnesium Hydrox/Alum Hydrox 30 Ml Oral.Susp PO 06/08/22 12:59 30 ml ONCE ONE Administration Belladonna Alkaloids/Phenobarbital 10 ml 06/08/22 12:58 06/08/22 18:28 Phenobarb/Hyoscy/Atropine/Scop 10 Ml Elixir PO 06/08/22 12:59 10 ml ONCE ONE Administration <Sari Moore NP - Last Filed: 06/08/22 19:32> Medical Decision Making Medical Decision Making MDM Narrative: 21-year-old male here with intermittent chest pain which is not exertional since Sunday with no associated symptoms. Vital stable. Lungs clear. Murmur on exam. 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 Low concern for ACS. Patient feels this may be secondary to his underlying esophagitis. Has a PPI and Carafate the pharmacy which she has not started yet. Will obtain labs, EKG, chest x-ray, viral testing <Sari Moore NP - Last Filed: 06/08/22 19:32> Differential Diagnosis Differential Diagnoses: The differential diagnosis associated with the presentation includes <Sari Moore NP - Last Filed: 06/08/22 19:32> ACS, esophagitis Low concern for PE with perc score 0 <Sari Moore NP - Last Filed: 06/08/22 19:32> Lab Data [facility] Lab Attestation statement: I reviewed the patient's lab results. <Sari Moore NP - Last Filed: 06/08/22 19:32> Result Diagrams: 06/08/22 13:25 06/08/22 13:25 <YEFRI Camacho - Last Filed: 06/08/22 13:04> Labs: Lab Results 06/08/22 06/08/22 06/08/22 Range/Units 13:25 13:25 13:25 WBC 4.5 L (4.8-10.8) X10*3/uL RBC 5.82 H (4.60-5.80) X10*6/uL Hgb 16.8 (14.0-18.0) g/dl Hct 49.2 (42.0-52.0) % MCV 84.5 (80.0-98.0) fL MCH 28.9 (27.0-33.0) pg MCHC 34.1 (31.0-36.0) g/dl RDW 12.7 (11.0-16.0) % Plt Count 150 L (160-400) X10*3/uL MPV 9.8 (9.4-12.4) fL Immature Gran % (Auto) 0.0 (0.0-0.4) % Neut % (Auto) 57.7 (45-73) % Lymph % (Auto) 28.0 (20-40) % [place] % (Auto) 9.0 (2-11) % Eos % (Auto) 4.4 H (0-4) % Baso % (Auto) 0.9 (0-2) % Lymph # (Auto) 1.3 (1.2-4.9) X10*3/uL [place] # (Auto) 0.4 (0.1-1.2) X10*3/uL Eos # (Auto) 0.2 (0.0-0.4) X10*3/uL Baso # (Auto) 0.0 (0.0-0.2) X10*3/uL Abs Immat Gran (auto) 0.00 (0.00-0.03) X10*3/uL Absolute Neuts (auto) 2.6 (2.0-8.3) x10*3/uL Absolute Nucleated RBC 0.000 (0.0-0.012) X10*3/uL Nucleated RBC % (auto) 0.0 (0.0-0.2) /100WBC Sodium 144 (135-145) mmol/L Potassium 4.0 (3.3-5.1) mmol/L Chloride 106 (96-108) mmol/L Carbon Dioxide 30 H (22-29) mmol/L Anion Gap 12 (12-20) BUN 14 (9-16) mg/dL Creatinine 0.85 (0.5-1.4) mg/dL Estim Creat Clear Calc 129.6 Estimated GFR > 60 Random Glucose 90 (60-115) mg/dL Calcium 9.9 (8.4-10.2) mg/dL Magnesium 2.2 (1.6-2.6) mg/dL Total Bilirubin 1.0 (0.0-1.0) mg/dL AST 14 (5-37) U/L ALT 13 (0-40) U/L Alkaline Phosphatase 84 (39-117) U/L Troponin I High Sens < 3.5 (<3.5-35.0) ng/L Total Protein 7.0 (6.5-8.0) g/dL Albumin 4.9 (3.5-5.0) g/dL COVID-19 (GUTIERREZ) (Negative) COVID-19 Clin Com 06/08/22 06/08/22 Range/Units 13:25 17:44 WBC (4.8-10.8) X10*3/uL RBC (4.60-5.80) X10*6/uL Hgb (14.0-18.0) g/dl Hct (42.0-52.0) % MCV (80.0-98.0) fL MCH (27.0-33.0) pg MCHC (31.0-36.0) g/dl RDW (11.0-16.0) % Plt Count (160-400) X10*3/uL MPV (9.4-12.4) fL Immature Gran % (Auto) (0.0-0.4) % Neut % (Auto) (45-73) % Lymph % (Auto) (20-40) % [place] % (Auto) (2-11) % Eos % (Auto) (0-4) % Baso % (Auto) (0-2) % Lymph # (Auto) (1.2-4.9) X10*3/uL [place] # (Auto) (0.1-1.2) X10*3/uL Eos # (Auto) (0.0-0.4) X10*3/uL Baso # (Auto) (0.0-0.2) X10*3/uL Abs Immat Gran (auto) (0.00-0.03) X10*3/uL Absolute Neuts (auto) (2.0-8.3) x10*3/uL Absolute Nucleated RBC (0.0-0.012) X10*3/uL Nucleated RBC % (auto) (0.0-0.2) /100WBC Sodium (135-145) mmol/L Potassium (3.3-5.1) mmol/L Chloride (96-108) mmol/L Carbon Dioxide (22-29) mmol/L Anion Gap (12-20) BUN (9-16) mg/dL Creatinine (0.5-1.4) mg/dL Estim Creat Clear Calc Estimated GFR Random Glucose (60-115) mg/dL Calcium (8.4-10.2) mg/dL Magnesium (1.6-2.6) mg/dL Total Bilirubin (0.0-1.0) mg/dL AST (5-37) U/L ALT (0-40) U/L Alkaline Phosphatase (39-117) U/L Troponin I High Sens < 3.5 (<3.5-35.0) ng/L Total Protein (6.5-8.0) g/dL Albumin (3.5-5.0) g/dL COVID-19 (GUTIERREZ) Negative (Negative) COVID-19 Clin Com See Note <YEFRI Camacho - Last Filed: 06/08/22 13:04> Lab Results 06/08/22 06/08/22 06/08/22 Range/Units 13:25 13:25 13:25 WBC 4.5 L (4.8-10.8) X10*3/uL RBC 5.82 H (4.60-5.80) X10*6/uL Hgb 16.8 (14.0-18.0) g/dl Hct 49.2 (42.0-52.0) % MCV 84.5 (80.0-98.0) fL MCH 28.9 (27.0-33.0) pg MCHC 34.1 (31.0-36.0) g/dl RDW 12.7 (11.0-16.0) % Plt Count 150 L (160-400) X10*3/uL MPV 9.8 (9.4-12.4) fL Immature Gran % (Auto) 0.0 (0.0-0.4) % Neut % (Auto) 57.7 (45-73) % Lymph % (Auto) 28.0 (20-40) % [place] % (Auto) 9.0 (2-11) % Eos % (Auto) 4.4 H (0-4) % Baso % (Auto) 0.9 (0-2) % Lymph # (Auto) 1.3 (1.2-4.9) X10*3/uL [place] # (Auto) 0.4 (0.1-1.2) X10*3/uL Eos # (Auto) 0.2 (0.0-0.4) X10*3/uL Baso # (Auto) 0.0 (0.0-0.2) X10*3/uL Abs Immat Gran (auto) 0.00 (0.00-0.03) X10*3/uL Absolute Neuts (auto) 2.6 (2.0-8.3) x10*3/uL Absolute Nucleated RBC 0.000 (0.0-0.012) X10*3/uL Nucleated RBC % (auto) 0.0 (0.0-0.2) /100WBC Sodium 144 (135-145) mmol/L Potassium 4.0 (3.3-5.1) mmol/L Chloride 106 (96-108) mmol/L Carbon Dioxide 30 H (22-29) mmol/L Anion Gap 12 (12-20) BUN 14 (9-16) mg/dL Creatinine 0.85 (0.5-1.4) mg/dL Estim Creat Clear Calc 129.6 Estimated GFR > 60 Random Glucose 90 (60-115) mg/dL Calcium 9.9 (8.4-10.2) mg/dL Magnesium 2.2 (1.6-2.6) mg/dL Total Bilirubin 1.0 (0.0-1.0) mg/dL AST 14 (5-37) U/L ALT 13 (0-40) U/L Alkaline Phosphatase 84 (39-117) U/L Troponin I High Sens < 3.5 (<3.5-35.0) ng/L Total Protein 7.0 (6.5-8.0) g/dL Albumin 4.9 (3.5-5.0) g/dL COVID-19 (GUTIERREZ) (Negative) COVID-19 Clin Com 06/08/22 06/08/22 Range/Units 13:25 17:44 WBC (4.8-10.8) X10*3/uL RBC (4.60-5.80) X10*6/uL Hgb (14.0-18.0) g/dl Hct (42.0-52.0) % MCV (80.0-98.0) fL MCH (27.0-33.0) pg MCHC (31.0-36.0) g/dl RDW (11.0-16.0) % Plt Count (160-400) X10*3/uL MPV (9.4-12.4) fL Immature Gran % (Auto) (0.0-0.4) % Neut % (Auto) (45-73) % Lymph % (Auto) (20-40) % [place] % (Auto) (2-11) % Eos % (Auto) (0-4) % Baso % (Auto) (0-2) % Lymph # (Auto) (1.2-4.9) X10*3/uL [place] # (Auto) (0.1-1.2) X10*3/uL Eos # (Auto) (0.0-0.4) X10*3/uL Baso # (Auto) (0.0-0.2) X10*3/uL Abs Immat Gran (auto) (0.00-0.03) X10*3/uL Absolute Neuts (auto) (2.0-8.3) x10*3/uL Absolute Nucleated RBC (0.0-0.012) X10*3/uL Nucleated RBC % (auto) (0.0-0.2) /100WBC Sodium (135-145) mmol/L Potassium (3.3-5.1) mmol/L Chloride (96-108) mmol/L Carbon Dioxide (22-29) mmol/L Anion Gap (12-20) BUN (9-16) mg/dL Creatinine (0.5-1.4) mg/dL Estim Creat Clear Calc Estimated GFR Random Glucose (60-115) mg/dL Calcium (8.4-10.2) mg/dL Magnesium (1.6-2.6) mg/dL Total Bilirubin (0.0-1.0) mg/dL AST (5-37) U/L ALT (0-40) U/L Alkaline Phosphatase (39-117) U/L Troponin I High Sens < 3.5 (<3.5-35.0) ng/L Total Protein (6.5-8.0) g/dL Albumin (3.5-5.0) g/dL COVID-19 (GUTIERREZ) Negative (Negative) COVID-19 Clin Com See Note <Sari Moore NP - Last Filed: 06/08/22 19:32> Independent Interpretation I performed an independent interpretation of an: EKG and Plain X-Ray <Sari Moore NP - Last Filed: 06/08/22 19:32> Interpretation: Indepedentely reviewed the EKG which shows normal sinus rhythm with sinus arrhythmia rate 81, normal MI, normal QRS, normal QT. Nonspecific intraventricular conduction block which is seen on previous EKGs and unchanged from previous I independently viewed the chest x-ray and agree with radiologist poor <Sari Moore NP - Last Filed: 06/08/22 19:32> Radiology Impression Discussion of test interpretation with radiology: I have reviewed the radiologist's reading. <Srai Moore NP - Last Filed: 06/08/22 19:32> Radiologist Impression: [address] [address] XRay Report Signed Patient: Ceasar Gutierrez MR#: [id number] : 2000 Acct:[id number] Age/Sex: 21 / M ADM Date: 06/08/22 Loc: HO.ED Attending Dr: Ordering Physician: Kait Hayes Date of Service: 06/08/22 Procedure(s): XR chest 1V Accession Number(s): [id number] cc: Kait Hayes~ EXAMINATION: XR CHEST CLINICAL INFORMATION: Chest pain COMPARISON: None TECHNIQUE: Frontal view of the chest was obtained. 1:40 PM FINDINGS: No airspace consolidation or pneumothorax. Pulmonary vascularity does not appear congested. Pleural surfaces are clear. Status post median sternotomy. XR/XR chest 1V IMPRESSION: No evidence for acute process. Status post median sternotomy. ? <Sari Moore NP - Last Filed: 06/08/22 19:32> External Record Review External record reviewed: Inpatient record <Sari Moore NP - Last Filed: 06/08/22 19:32> Reviewed admission from January of 2022 for esophageal ulcer and esophagitis discharged on PPI <Sari Moore NP - Last Filed: 06/08/22 19:32> Discharge Plan Discharge Clinical Impression: Chest pain <YEFRI Camacho - Last Filed: 06/08/22 13:04> Patient Disposition: Home, Self-Care <YEFRI Camacho - Last Filed: 06/08/22 13:04> Instructions: Chest Pain (DC) <YEFRI Camacho - Last Filed: 06/08/22 13:04> Additional Instructions: Your EKG, blood work and chest x-ray all are reassuring Pick the medications are prescribed by Dr. Haney and start these medication Return for any worsening symptoms <YEFRI Camacho - Last Filed: 06/08/22 13:04> Prescriptions: No Action omeprazole magnesium 10 mg susp,delayed release for recon 20 mg PO BID 30 Days Qty: 60 2RF sucralfate 100 mg/mL suspension 10 ml PO BID 14 Days Qty: 280 0RF <YEFRI Camacho - Last Filed: 06/08/22 13:04> Referrals: Po,Lorenver O, MD [Primary Care Provider] - 5 days <YEFRI Camacho - Last Filed: 06/08/22 13:04> Stand Alone Forms: Work/School Release <YEFRI Camacho - Last Filed: 06/08/22 13:04> Interventions: ED Discharge Assessment Last Done: 06/08/22 19:25 <YEFRI Camacho - Last Filed: 06/08/22 13:04> Discharge Date/Time: 06/08/22 19:25 <YEFRI Camacho - Last Filed: 06/08/22 13:04>
--- NOTE | 2022-06-08 13:00 | ECG_ITS ---
Test Reason : chest pain Blood Pressure : / mmHG Vent. Rate : 081 BPM Atrial Rate : 081 BPM P-R Int : 156 ms QRS Dur : 128 ms QT Int : 368 ms P-R-T Axes : 073 078 063 degrees QTc Int : 427 ms Normal sinus rhythm with sinus arrhythmia Non-specific intra-ventricular conduction block Abnormal ECG When compared with ECG of 23-FEB-2022 14:51, No significant changes seen Referred By: Kait Hayes Electronically Signed By:TIESHA PAULINO MD
[2022-06-08 13:29] LABS: MANUAL DIFF FLAG NO
[2022-06-08 13:30] VITALS: BP 124/80; PULSE 82; RESP 17; TEMP 36.5; O2SAT 99; BMI 19.1
[2022-06-08 13:30] LABS: Basophils Percent Auto 0.9 % (0-2); Eosinophils Absolute Auto 0.2 X10*3/uL (0.0-0.4); Eosinophils Percent Auto 4.4 % (0-4); Hematocrit 49.2 % (42.0-52.0); Hemoglobin 16.8 g/dl (14.0-18.0); Lymphocytes Absolute Auto 1.3 X10*3/uL (1.2-4.9); Mean Corpuscular HGB Conc 34.1 g/dl (31.0-36.0); Mean Corpuscular Hemoglobin 28.9 pg (27.0-33.0); Mean Corpuscular Volume 84.5 fL (80.0-98.0); Mean Platelet Volume 9.8 fL (9.4-12.4); Monocytes Absolute Auto 0.4 X10*3/uL (0.1-1.2); Neutrophils Absolute Auto 2.6 x10*3/uL (2.0-8.3); Neutrophils Percent Auto 57.7 % (45-73); Platelet Count 150 X10*3/uL (160-400); Red Blood Count 5.82 X10*6/uL (4.60-5.80); Red Cell Distribution Width 12.7 % (11.0-16.0); White Blood Count 4.5 X10*3/uL (4.8-10.8)
[2022-06-08 13:44] LABS: COVID-19 Test Negative (Negative); IDNOW Serial# 9DB6401D
[2022-06-08 13:50] LABS: Alanine Aminotransferase 13 U/L (0-40); Albumin Level 4.9 g/dL (3.5-5.0); Alkaline Phosphatase 84 U/L (39-117); Anion Gap 12 (12-20); Aspartate Amino Transferase 14 U/L (5-37); Blood Urea Nitrogen 14 mg/dL (9-16); Calcium 9.9 mg/dL (8.4-10.2); Carbon Dioxide 30 mmol/L (22-29); Chloride 106 mmol/L (96-108); Creatinine Clr Calc Pharmacy 129.6; Estimated Glomerular Filt Rate > 60; Glucose Random 90 mg/dL (60-115); Magnesium 2.2 mg/dL (1.6-2.6); Sodium 144 mmol/L (135-145)
[2022-06-08 14:00] LABS: Troponin-I High Sensitivity < 3.5 ng/L (<3.5-35.0)
[2022-06-08 17:01] VITALS: BP 137/76; PULSE 92; RESP 18; TEMP 36.1; O2SAT 97
[2022-06-08 18:22] LABS: Troponin-I High Sensitivity < 3.5 ng/L (<3.5-35.0)
[2022-06-08] MEDS: PHENobarb/Hyoscy/Atropine/Scop 10 ML ELIXIR PO (18:28)
[2022-06-08] MEDS: Magnesium Hydrox/Alum Hydrox 30 ML ORAL.SUSP PO (18:28)
[2022-06-08 18:29] VITALS: BP 146/80; PULSE 72; RESP 18; TEMP 36.8; O2SAT 99
== END 2022-06-08 19:25 | disposition home or self-care (01) ==
PROVIDERS: Physician Assistant; Emergency Provider Emergency Medicine; PCP Internal Medicine
DX: R07.9 Chest pain, unspecified (principal); Z20.822 Contact with and (suspected) exposure to COVID-19; Q20.3 Discordant ventriculoarterial connection
CPT/HCPCS: 36415; 71045; 80053; 83735; 84484; 85025; 87635; 93005; 99283; 99284

== ENCOUNTER 2022-08-05 14:33 | Emergency (ER) | payer BC, OTHER, SELFPAY ==
[2022-08-05 15:32] VITALS: BP 124/70; PULSE 78; RESP 18; TEMP 37; O2SAT 99; BMI 19.0
--- NOTE | 2022-08-05 15:32 | ED.GENADULT ---
HPI - General Adult General Chief complaint: Upper Respiratory Symptoms Stated complaint: covid symptoms Time Seen by Provider: 08/05/22 16:08 Source: patient Mode of arrival: ambulatory Limitations: no limitations History of Present Illness HPI narrative: Patient is a 21 year old assigned male at with a history of a duodenal ulcer presenting to the emergency department today requesting a COVID-19 test. Patient states that his mother recently tested positive and he is having a cough and congestion. Patient denies any dizziness, lightheadedness, abdominal pain, nausea, vomiting, fever, chills, blurry vision, double vision, loss of vision, chest pain, difficulty breathing, shortness of breath, back pain, night sweats, pain with urination, increased urinary frequency, increased urinary urgency, blood in his urine or stool, syncope or a near syncopal episode, recent trauma or falls, bowel incontinence, bladder incontinence, bowel retention, bladder retention, or any other complaints at this time. Onset (ago): hour(s) Severity: mild Severity scale (1-10): 2 Relieving factors: none Exacerbating factors: none Associated symptoms: cough Treatments prior to arrival: none Related Data Previous Rx's Medication Instructions Recorded omeprazole magnesium 10 mg oral 20 mg PO BID 30 days #60 ea 06/08/22 suspension,delayed release sucralfate 100 mg/mL oral 10 ml PO BID 14 days #280 mL 06/08/22 suspension Allergies Allergy/AdvReac Type Severity Reaction Status Date / Time pistachio nut Allergy Anaphylaxis Verified 08/05/22 15:32 Review of Systems Constitutional: Constitutional: Reports no additional constitutional complaints, Denies chills, Denies fever(s) and Denies night sweats Eyes: Eyes: Reports no additional eye complaints, Denies blurry vision, Denies change in vision, Denies diplopia, Denies eye discharge, Denies loss of vision and Denies eye pain ENT: Denies dizziness Cardiovascular: Cardiovascular: Reports no additional cardiovascular complaints, Denies chest pain, Denies lightheadedness, Denies Loss of Consciousness and Denies dyspnea Respiratory: Respiratory: Reports no additional respiratory complaints, Reports cough and Denies dyspnea Gastrointestinal: Gastrointestinal: Reports no additional gastrointestinal complaints, Denies abdominal pain, Denies melena, Denies hematochezia, Denies change in bowel habits and Denies change in stool character Genitourinary: Genitourinary: Reports no additional male genitourinary complaints, Denies hematuria, Denies oliguria, Denies difficulty urinating, Denies dysuria, Denies urinary frequency, Denies urinary hesitancy, Denies urinary incontinence and Denies urinary urgency Musculoskeletal: Musculoskeletal: Reports no additional musculoskeletal complaints, Denies numbness and Denies tingling Neurologic: Denies dizziness, Denies loss of vision, Denies numbness and Denies tingling Psychiatric: Psychiatric: Reports no additional psychiatric complaints Endocrine: Endocrine: Reports no additional endocrine complaints Hematologic/Lymphatic: Hematologic/Lymphatic: Reports no additional hematologic/lymphatic complaints Allergic/Immunologic: Allergic/Immunologic: Reports no additional allergic/immunologic complaints [facility] Past Medical History Attestation statement: The following information was validated with the patient. Source: old records reviewed and nursing notes reviewed Medical History Asthma Chest pain Dysphagia Generalized anxiety disorder GERD (gastroesophageal reflux disease) Irritable bowel syndrome Odynophagia Surgical History Transposition of the great arteries Family History Family History Other Stomach cancer Social History Social History Household Members: Family Housing: Other Do you presently have visiting nurse or other home services: No Alcohol intake: current Alcohol intake frequency: holidays/special occasions only Patient Tobacco Use Status: Never used Tobacco e-Cigarette/Vaping Use: Never Used Second Hand Smoke Exposure: No Advance Directives: Yes Advance Directives on File: Yes Advance Directives Date on File: 02/27/22 service: No Current occupational status: employed Cognitive needs: No Hearing needs: No Vision needs: No Physical Exam ED Vital Signs: Vital Signs - 24 hr 08/05/22 15:32 Temperature 98.6 F Pulse Rate 78 Respiratory Rate 18 Blood Pressure 124/70 Pulse Oximetry 99 Oxygen Delivery Method Room Air BMI result Body Mass Index 19.0 Const General: cooperative, no acute distress, alert and awake Nutritional Appearance: well nourished Orientation/consciousness: patient oriented x3 Limitations: no limitations HENMT Head: Yes normal to inspection and Yes atraumatic Ears: hearing grossly normal bilaterally and external ears normal General nose exam: Normal external nose present, no nasal discharge noted and no epistaxis Face and sinus: Yes normal facial exam, No abrasion and No laceration Mouth: Normal oral and palatal mucosa present, no drooling and no muffled voice Eyes General: appearance normal, both eyes and all related structures Periorbital: periorbital findings normal Eyelids: Yes eyelids normal Conjunctivae: conjunctivae normal Pupils: Equal, round and reactive pupils present EOM: EOMs intact bilaterally Neck Neck: Yes normal visual inspection, Yes full ROM and Yes no lymphadenopathy Chest Chest palpation & inspection: normal inspection of the chest Resp Effort & Inspection: normal respiratory effort and able to speak in complete sentences Auscultation: clear to auscultation bilaterally Cardio Rate: regular rate Rhythm: regular rhythm GI Inspection: Yes normal to inspection Neuro General: patient oriented x3 and moves all extremities Cranial nerves: Yes Equal, round and reactive pupils present Cognition (Neuro): normal cognition Motor exam (neuro): 5/5 motor strength present throughout Sensory Exam: Normal double simultaneous stimulation for sensation Coordination: ccituy-ch-[id number] test normal Extrem General: Yes normal to inspection, Yes full ROM and Yes capillary refill normal Psych Appearance: grossly normal Mental Status: mental status grossly normal Affect: normal affect Attitude: cooperative Thought process: Normal thought process present Thought content: Normal thought content present Insight: Good insight present (Psych) Course Course Course Narrative: RME performed by Nikki Alexander PA-C. Patient is a 21 year old assigned male at presenting to the emergency department requesting a COVID-19 test. Swab ordered. Patient placed back in the waiting room pending room availability and results. Medical Decision Making Medical Decision Making MDM Narrative: Patient is a 21 year old assigned male at with a history of a duodenal ulcer presenting to the emergency department today requesting a COVID-19 test. Patient's physical exam was unremarkable. Patient's COVID-19, influenza, and strep swabs were all negative. I explained my physical exam findings as well as all test results to the patient. I answered all questions asked by the patient. I stressed the importance of the patient taking his medication as prescribed. I stressed the importance of the patient following up with his primary care provider. I stressed the importance of the patient returning to the emergency department immediately if his symptoms were to worsen or if he were to develop any dizziness, shortness of breath, difficulty breathing, chest pain, blurry vision, loss of vision, nausea, vomiting, abdominal pain, fever, chills, back pain, or any other complaints. Patient verbalized agreement and understanding with this treatment plan and discharge. Differential Diagnosis Differential Diagnoses: The differential diagnosis associated with the presentation includes viral illness Lab Data MDM Lab Attestation statement: I reviewed the patient's lab results. Labs: Lab Results 08/05/22 08/05/22 08/05/22 Range/Units 15:41 15:43 15:43 COVID-19 (GUTIERREZ) Negative (Negative) COVID-19 Clin Com See Note Influenza Type A (ROSALEE) Negative (Negative) Influenza Type B (ROSALEE) Negative (Negative) Influenza A & B Note See Note S. pyogenes GrpA ROSALEE Negative (Negative) Discharge Plan Discharge Clinical Impression: Viral illness Patient Disposition: Home, Self-Care Instructions: Viral Syndrome (ED) Additional Instructions: Follow up with your primary care provider. Return to the emergency department immediately if your symptoms worsen or if you develop any dizziness, shortness of breath, difficulty breathing, chest pain, blurry vision, loss of vision, nausea, vomiting, abdominal pain, fever, chills, back pain, or any other complaints. Prescriptions: No Action omeprazole magnesium 10 mg susp,delayed release for recon 20 mg PO BID 30 Days Qty: 60 2RF sucralfate 100 mg/mL suspension 10 ml PO BID 14 Days Qty: 280 0RF Referrals: Po,Fredrick Young MD [Primary Care Provider] - Stand Alone Forms: Work/School Release Interventions: ED Discharge Assessment Last Done: 08/05/22 16:11 Discharge Date/Time: 08/05/22 16:18 Print Language: Nigerian
[2022-08-05 16:02] LABS: COVID-19 Test Negative (Negative); IDNOW Serial# 9DB6401D
[2022-08-05 16:02] LABS: IDNOW Serial# 08D9AD1C; Strep A Nucleic Acid Negative (Negative)
[2022-08-05 16:06] LABS: IDNOW Serial# BCCEAD1C; Influenza A Negative (Negative); Influenza B2 Negative (Negative)
== END 2022-08-05 16:18 | disposition home or self-care (01) ==
LOC: HO.ED 16:13
PROVIDERS: Physician Assistant Medical; Emergency Provider Emergency Medicine; PCP Internal Medicine
DX: B34.9 Viral infection, unspecified (principal); R05.9 Cough, unspecified; Z20.822 Contact with and (suspected) exposure to COVID-19
CPT/HCPCS: 87502; 87635; 87651; 99282; 99283

== ENCOUNTER 2022-09-05 13:41 | Emergency (ER) | payer BC, OTHER, SELFPAY ==
--- NOTE | ~2022-09-05 | XR_ITS ---
EXAMINATION: XR CHEST CLINICAL INFORMATION: Chest pain COMPARISON: Previous chest x-ray May 2022 TECHNIQUE: Frontal view of the chest was obtained. FINDINGS: The cardiac and mediastinal contours are stable. Lungs are well inflated. The lungs are clear. No pleural effusion or pneumothorax. There are median sternotomy wires. Bony structures are otherwise unremarkable. XR/XR chest 1V IMPRESSION: Well-inflated lungs. No evidence for acute disease in the chest.
--- NOTE | 2022-09-05 13:50 | ECG_ITS ---
Test Reason : CHEST PAIN Blood Pressure : / mmHG Vent. Rate : 085 BPM Atrial Rate : 085 BPM P-R Int : 154 ms QRS Dur : 118 ms QT Int : 352 ms P-R-T Axes : 073 070 064 degrees QTc Int : 418 ms Normal sinus rhythm Non-specific intra-ventricular conduction delay Borderline ECG When compared with ECG of 08-JUN-2022 13:17, No significant change was found Referred By: Valencia Millard Electronically Signed By:CANDIDA PEÑA
--- NOTE | 2022-09-05 14:01 | ED.CHESTPAIN ---
HPI - Chest Pain General Chief Complaint: Chest Pain <YEFRI Gallegos - Last Filed: 09/05/22 14:04> Stated Complaint: R side chest pain <YEFRI Gallegos - Last Filed: 09/05/22 14:04> Time Seen by Provider: 09/05/22 16:09 <YEFRI Gallegos - Last Filed: 09/05/22 14:04> Source: patient <Paramjit Rowan - Last Filed: 09/05/22 16:58> Limitations: no limitations <Paramjit Rowan - Last Filed: 09/05/22 16:58> History of Present Illness HPI narrative: 21-year-old male presents ER complaining of right-sided chest pain that lasted about 30 minutes while he was driving today. Patient states pain was aching in nature. Patient stated states it made him somewhat anxious. 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 Patient also has a history of duodenal offices esophagitis. Patient states pain resolved on its own. Patient denies shortness of breath fever chills nausea vomiting or abdominal pain at this time. Patient has been told by the culinary specialist past headache does have a history of costochondritis. Patient denies tobacco history. No other complaints at this time. <Paramjit Rowan - Last Filed: 09/05/22 16:58> Related Data Home Medications: Previous Rx's Medication Instructions Recorded omeprazole magnesium 10 mg oral 20 mg PO BID 30 days #60 ea 06/08/22 suspension,delayed release sucralfate 100 mg/mL oral 10 ml PO BID 14 days #280 mL 06/08/22 suspension <YEFRI Gallegos - Last Filed: 09/05/22 14:04> Allergies/Adverse Reactions: Allergies Allergy/AdvReac Type Severity Reaction Status Date / Time pistachio nut Allergy Anaphylaxis Verified 08/05/22 15:32 <YEFRI Gallegos - Last Filed: 09/05/22 14:04> Review of Systems Review of Systems: General: No fever, no chills Ophthalmology: No vision changes, no discharge ENT: No sore throat, no ear pain Cardiovascular: Right-sided chest wall pain resolves, no shortness of breath Respiratory: No dyspnea, no sputum production, no cough Muscle skeletal: No malaise, no back pain, no neck pain, no extremity pain GI: No abdominal pain: no nausea vomiting, no diarrhea Psychiatric: No depression, no suicidal ideation, no homicidal ideation Skin: No rash Immunology: No immunocompromised Hematology: No bleeding, no bruising <Paramjit Rowan - Last Filed: 09/05/22 16:58> [facility] Past Medical History Medical History: Medical History Asthma Chest pain Dysphagia Generalized anxiety disorder GERD (gastroesophageal reflux disease) Irritable bowel syndrome Odynophagia <YEFRI Gallegos - Last Filed: 09/05/22 14:04> Surgical History: Surgical History Transposition of the great arteries <YEFRI Gallegos - Last Filed: 09/05/22 14:04> Family History Family History: Family History Other Stomach cancer <YEFRI Gallegos - Last Filed: 09/05/22 14:04> Social History Social History: Social History Household Members: Family Housing: Other Do you presently have visiting nurse or other home services: No Alcohol intake: current Alcohol intake frequency: holidays/special occasions only Patient Tobacco Use Status: Never used Tobacco e-Cigarette/Vaping Use: Never Used Second Hand Smoke Exposure: No Advance Directives: Yes Advance Directives on File: Yes Advance Directives Date on File: 02/27/22 service: No Current occupational status: employed Cognitive needs: No Hearing needs: No Vision needs: No <YEFRI Gallegos - Last Filed: 09/05/22 14:04> Physical Exam Vital Signs: Vital Signs: Last Vital Signs Temp 98.9 F 09/05/22 14:02 Pulse 83 09/05/22 14:02 Resp 20 09/05/22 14:02 BP 146/88 H 09/05/22 14:02 Pulse Ox 97 09/05/22 14:02 O2 Del Method Room Air 09/05/22 14:02 BMI result Body Mass Index 19.0 <YEFRI Gallegos Last Filed: 09/05/22 14:04> Vital Signs: Last Vital Signs Temp 98.9 F 09/05/22 14:02 Pulse 83 09/05/22 14:02 Resp 20 09/05/22 14:02 BP 146/88 H 09/05/22 14:02 Pulse Ox 97 09/05/22 14:02 O2 Del Method Room Air 09/05/22 14:02 BMI result Body Mass Index 19.0 <Paramjit Harpal - Last Filed: 09/05/22 16:58> General appearance: Awake, alert, cooperative, in no acute distress Skin: Warm, dry, no rash Eyes: PERRL, EOMI, no icterus ENT: Oropharynx normal, uvula midline Neck: Soft supple full range of motion Pulmonary: Breath sounds clear to auscultation bilaterally, no accessory muscle use Cardiovascular: Regular rate and rhythm positive pansystolic murmur Abdomen: Soft nontender, no rebound or guarding, positive bowel sounds Extremities: No deformity, nontender, no peripheral edema noted, bilateral cast nontender Neuro: Alert oriented x3, no focal deficit Psych: Normal affect <Paramjit Rowan - Last Filed: 09/05/22 16:58> Course Course Course Narrative: RME: 21yo M w/PMHx esophagitis c/o right sided chest pressure beginning 30mins [employer] while driving w/ assoc nausea. Sx now resolved. denies fever, SOB, parathesias EKG, labs, CXR ordered Full HPI, ROS and PE to be performed by primary ED provider. <YEFRI Gallegos - Last Filed: 09/05/22 14:04> Medical Decision Making Medical Decision Making MDM Narrative: Costal chondritis Pleurisy Pneumothorax Chest wall pain ACS less likely Pulmonary embolism 21-year-old male with extensive cardiac history of transposition of the great vessels and surgery when he was much younger. Experience an episode of chest pain in the right side 2nd 3rd intercostals last and proximally 1/2 hour while driving. Patient has had history of costochondritis in the past. Symptoms have now resolved. Patient is not nausea vomiting shortness of breath fever chills. Chest x-ray is negative other labs are pending ECG Normal sinus rhythm Non-specific intra-ventricular conduction delay Borderline ECG When compared with ECG of 08-JUN-2022 13:17, No significant change was found Wells' Criteria for Pulmonary Embolism from [email or web address] on 09/05/2022 All calculations should be rechecked by clinician prior to use RESULT SUMMARY: 0.0 points Low risk group: 1.3% chance of PE in an ED population. Another study assigned scores <=4 as ?PE Unlikely? and had a 3% incidence of PE. INPUTS: Clinical signs and symptoms of DVT ?> 0 = No PE is #1 diagnosis OR equally likely ?> 0 = No Heart rate > 100 ?> 0 = No Immobilization at least 3 days OR surgery in the previous 4 weeks ?> 0 = No Previous, objectively diagnosed PE or DVT ?> 0 = No Hemoptysis ?> 0 = No Malignancy w/ treatment within 6 months or palliative ?> 0 = No ? <Paramjit Rowan - Last Filed: 09/05/22 16:58> Lab Data Result Diagrams: 09/05/22 15:59 09/05/22 15:59 <YEFRI Gallegos - Last Filed: 09/05/22 14:04> Labs: Lab Results 09/05/22 09/05/22 09/05/22 Range/Units 15:59 15:59 15:59 WBC 8.2 (4.8-10.8) X10*3/uL RBC 5.94 H (4.60-5.80) X10*6/uL Hgb 17.0 (14.0-18.0) g/dl Hct 50.7 (42.0-52.0) % MCV 85.4 (80.0-98.0) fL MCH 28.6 (27.0-33.0) pg MCHC 33.5 (31.0-36.0) g/dl RDW 12.8 (11.0-16.0) % Plt Count 150 L (160-400) X10*3/uL MPV 9.7 (9.4-12.4) fL Immature Gran % (Auto) 0.2 (0.0-0.4) % Neut % (Auto) 70.2 (45-73) % Lymph % (Auto) 17.9 L (20-40) % [place] % (Auto) 6.9 (2-11) % Eos % (Auto) 4.2 H (0-4) % Baso % (Auto) 0.6 (0-2) % Lymph # (Auto) 1.5 (1.2-4.9) X10*3/uL [place] # (Auto) 0.6 (0.1-1.2) X10*3/uL Eos # (Auto) 0.3 (0.0-0.4) X10*3/uL Baso # (Auto) 0.1 (0.0-0.2) X10*3/uL Abs Immat Gran (auto) 0.02 (0.00-0.03) X10*3/uL Absolute Neuts (auto) 5.7 (2.0-8.3) x10*3/uL Absolute Nucleated RBC 0.000 (0.0-0.012) X10*3/uL Nucleated RBC % (auto) 0.0 (0.0-0.2) /100WBC Sodium 143 (135-145) mmol/L Potassium 4.0 (3.3-5.1) mmol/L Chloride 106 (96-108) mmol/L Carbon Dioxide 29 (22-29) mmol/L Anion Gap 12 (12-20) BUN 11 (9-16) mg/dL Creatinine 0.83 (0.5-1.4) mg/dL Estim Creat Clear Calc 131.7 Estimated GFR > 60 Random Glucose 102 (60-115) mg/dL Calcium 9.7 (8.4-10.2) mg/dL Total Bilirubin 0.8 (0.0-1.0) mg/dL Direct Bilirubin 0.2 (0.0-0.5) mg/dL AST 14 (5-37) U/L ALT 12 (0-40) U/L Alkaline Phosphatase 82 (39-117) U/L Troponin I High Sens < 2.7 (<3.5-35.0) ng/L Total Protein 7.0 (6.5-8.0) g/dL Albumin 4.8 (3.5-5.0) g/dL <YEFRI Gallegos - Last Filed: 09/05/22 14:04> Lab Results 09/05/22 09/05/22 09/05/22 Range/Units 15:59 15:59 15:59 WBC 8.2 (4.8-10.8) X10*3/uL RBC 5.94 H (4.60-5.80) X10*6/uL Hgb 17.0 (14.0-18.0) g/dl Hct 50.7 (42.0-52.0) % MCV 85.4 (80.0-98.0) fL MCH 28.6 (27.0-33.0) pg MCHC 33.5 (31.0-36.0) g/dl RDW 12.8 (11.0-16.0) % Plt Count 150 L (160-400) X10*3/uL MPV 9.7 (9.4-12.4) fL Immature Gran % (Auto) 0.2 (0.0-0.4) % Neut % (Auto) 70.2 (45-73) % Lymph % (Auto) 17.9 L (20-40) % [place] % (Auto) 6.9 (2-11) % Eos % (Auto) 4.2 H (0-4) % Baso % (Auto) 0.6 (0-2) % Lymph # (Auto) 1.5 (1.2-4.9) X10*3/uL [place] # (Auto) 0.6 (0.1-1.2) X10*3/uL Eos # (Auto) 0.3 (0.0-0.4) X10*3/uL Baso # (Auto) 0.1 (0.0-0.2) X10*3/uL Abs Immat Gran (auto) 0.02 (0.00-0.03) X10*3/uL Absolute Neuts (auto) 5.7 (2.0-8.3) x10*3/uL Absolute Nucleated RBC 0.000 (0.0-0.012) X10*3/uL Nucleated RBC % (auto) 0.0 (0.0-0.2) /100WBC Sodium 143 (135-145) mmol/L Potassium 4.0 (3.3-5.1) mmol/L Chloride 106 (96-108) mmol/L Carbon Dioxide 29 (22-29) mmol/L Anion Gap 12 (12-20) BUN 11 (9-16) mg/dL Creatinine 0.83 (0.5-1.4) mg/dL Estim Creat Clear Calc 131.7 Estimated GFR > 60 Random Glucose 102 (60-115) mg/dL Calcium 9.7 (8.4-10.2) mg/dL Total Bilirubin 0.8 (0.0-1.0) mg/dL Direct Bilirubin 0.2 (0.0-0.5) mg/dL AST 14 (5-37) U/L ALT 12 (0-40) U/L Alkaline Phosphatase 82 (39-117) U/L Troponin I High Sens < 2.7 (<3.5-35.0) ng/L Total Protein 7.0 (6.5-8.0) g/dL Albumin 4.8 (3.5-5.0) g/dL <Paramjit Rowan - Last Filed: 09/05/22 16:58> Radiology Impression Discussion of test interpretation with radiology: I have reviewed the radiologist's reading. <Paramjit Rowan - Last Filed: 09/05/22 16:58> Radiologist Impression: [place] [id number] XRay Report Signed Patient: Ceasar Gutierrez MR#: [id number] : 2000 Acct:[id number] Age/Sex: 21 / M ADM Date: 09/05/22 Loc: .ED Attending Dr: Ordering Physician: Valencia Millard Date of Service: 09/05/22 Procedure(s): XR chest 1V Accession Number(s): [id number] cc: Valencia Millard~ EXAMINATION: XR CHEST CLINICAL INFORMATION: Chest pain COMPARISON: Previous chest x-ray May 2022 TECHNIQUE: Frontal view of the chest was obtained. FINDINGS: The cardiac and mediastinal contours are stable. Lungs are well inflated. The lungs are clear. No pleural effusion or pneumothorax. There are median sternotomy wires. Bony structures are otherwise unremarkable. XR/XR chest 1V IMPRESSION: Well-inflated lungs. No evidence for acute disease in the chest. ? Dictated By: Ludmila Alexander MD Signed By: <Electronically signed by Ludmila Alexander MD in OV> 09/05/22 1533 DD/ 1424 TD/TT:? [employer] Machine Operator: MICHAEL <Paramjit Rowan - Last Filed: 09/05/22 16:58> Discharge Plan Discharge Clinical Impression: Chest wall pain, Acute costochondritis <YEFRI Gallegos Last Filed: 09/05/22 14:04> Patient Disposition: Home, Self-Care <YEFRI Gallegos Last Filed: 09/05/22 14:04> Instructions: Costochondritis (ED), Chest Wall Pain (ED) <YEFRI Gallegos Last Filed: 09/05/22 14:04> Additional Instructions: EKG chest x-ray and lab work within normal limits Symptoms in the right-sided chest likely secondary to inflammation [id number] Tylenol for pain Return if symptoms worsen Call PCP for follow-up <YEFRI Gallegos Last Filed: 09/05/22 14:04> Prescriptions: No Action omeprazole magnesium 10 mg susp,delayed release for recon 20 mg PO BID 30 Days Qty: 60 2RF sucralfate 100 mg/mL suspension 10 ml PO BID 14 Days Qty: 280 0RF <YEFRI Gallegos Last Filed: 09/05/22 14:04>
[2022-09-05 14:02] VITALS: BP 146/88; PULSE 83; RESP 20; TEMP 37.2; O2SAT 97; BMI 19.0
--- NOTE | 2022-09-05 15:55 | PC.NURSE ---
Patient was driving today after making his bed this afternoon when he started to feel some chest pain. Patient states that it hit him out of nowhere and it last approximately 1 hour before relieving on its own. Patient states that he also felt nauseous during the pain but he thinks this has to do with his anxiety. Patient well appearing at this time and denies any pain.
[2022-09-05 16:05] LABS: MANUAL DIFF FLAG NO
[2022-09-05 16:07] LABS: Basophils Absolute Auto 0.1 X10*3/uL (0.0-0.2); Basophils Percent Auto 0.6 % (0-2); Eosinophils Absolute Auto 0.3 X10*3/uL (0.0-0.4); Eosinophils Percent Auto 4.2 % (0-4); Hematocrit 50.7 % (42.0-52.0); Imm Gran Abs Auto 0.02 X10*3/uL (0.00-0.03); Imm Gran Pct Auto 0.2 % (0.0-0.4); Lymphocytes Absolute Auto 1.5 X10*3/uL (1.2-4.9); Lymphocytes Percent Auto 17.9 % (20-40); Mean Corpuscular HGB Conc 33.5 g/dl (31.0-36.0); Mean Corpuscular Hemoglobin 28.6 pg (27.0-33.0); Mean Corpuscular Volume 85.4 fL (80.0-98.0); Mean Platelet Volume 9.7 fL (9.4-12.4); Monocytes Absolute Auto 0.6 X10*3/uL (0.1-1.2); Monocytes Percent Auto 6.9 % (2-11); Neutrophils Absolute Auto 5.7 x10*3/uL (2.0-8.3); Neutrophils Percent Auto 70.2 % (45-73); Platelet Count 150 X10*3/uL (160-400); Red Blood Count 5.94 X10*6/uL (4.60-5.80); Red Cell Distribution Width 12.8 % (11.0-16.0); White Blood Count 8.2 X10*3/uL (4.8-10.8)
[2022-09-05 16:26] LABS: Alanine Aminotransferase 12 U/L (0-40); Albumin Level 4.8 g/dL (3.5-5.0); Alkaline Phosphatase 82 U/L (39-117); Anion Gap 12 (12-20); Aspartate Amino Transferase 14 U/L (5-37); Bilirubin Direct 0.2 mg/dL (0.0-0.5); Bilirubin Total 0.8 mg/dL (0.0-1.0); Blood Urea Nitrogen 11 mg/dL (9-16); Calcium 9.7 mg/dL (8.4-10.2); Carbon Dioxide 29 mmol/L (22-29); Chloride 106 mmol/L (96-108); Creatinine Clr Calc Pharmacy 131.7; Estimated Glomerular Filt Rate > 60; Glucose Random 102 mg/dL (60-115); Sodium 143 mmol/L (135-145)
[2022-09-05 16:27] LABS: Troponin-I High Sensitivity < 2.7 ng/L (<3.5-35.0)
--- NOTE | 2022-09-05 16:55 | PC.NURSE ---
Patient states that he feels he needs something for his asthma. Provider made aware.
== END 2022-09-05 17:12 | disposition home or self-care (01) ==
PROVIDERS: Physician Assistant; Emergency Provider Emergency Medicine; PCP Internal Medicine
DX: R07.89 Other chest pain (principal); M94.0 Chondrocostal junction syndrome [Tietze]
CPT/HCPCS: 36415; 71045; 80048; 80076; 84484; 85025; 93005; 99283

== ENCOUNTER → 2022-09-15 14:46 | Outpatient (REF) | payer BC, OTHER, SELFPAY ==
--- NOTE | 2022-09-15 14:49 | CA_ITS ---
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 The visually estimated ejection fraction is between 55-60%. Diastolic function is normal for age. - Normal right ventricular cavity size and systolic function. - The left atrium is likely dilated. The right atrium is normal in size. - There is mild dilatation of the sinuses of Valsalva measuring 3.60 cm. - Cannot rule out bicuspid aortic valve. Findings Left Ventricle Normal left ventricular size, thickness, systolic function, and wall motion. The visually estimated ejection fraction is between 55-60%. Diastolic function is normal for age. Right Ventricle Normal right ventricular cavity size and systolic function. Atria The left atrium is likely dilated. The right atrium is normal in size. Aortic Valve There is mild thickening of the aortic valve. There is no aortic valve stenosis. There is no aortic valve regurgitation. Cannot rule out bicuspid aortic valve. Mitral Valve The mitral valve appears normal. There is no mitral valve regurgitation. There is no mitral valve stenosis. Pulmonic Valve The pulmonic valve is likely normal. Tricuspid Valve Normal tricuspid valve structure and function. There is trace tricuspid valve regurgitation. Normal right atrial pressure. There is no evidence of pulmonary hypertension. Great Vessels There is mild dilatation of the sinuses of Valsalva measuring 3.60 cm. Venous The inferior vena cava is normal in size and collapses greater than 50% with inspiration. Pericardium/Pleural There is no evidence of pericardial effusion. Prior Study Comparison No prior study available for comparison. Measurements 2D Linear Measurements IVSd: 0.87 0.6-0.9/0.6-1.0 cm LVIDd: 4.90 3.9-5.3/4.2-5.9 cm LVIDd Index: 2.59 2.4-3.2/2.2-3.1 cm/m2 LVIDs: 3.27 2.0-3.6 cm LVPWd: 0.88 0.7-1.1 cm Ao Root: 3.60 2.1-3.5 cm LA Diam: 2.50 2.7-3.8/3.0-4.0 cm LAIDs Index: 1.32 1.5-2.3 cm/m2 LV Mass: 183.07 67-162/88-224 g LV Mass Index: 96.86 43-95/49-115 g/m2 LVOT Diam: 2.40 3.0+(-)1.3 cm 2D Systolic Function EF 4C: 61.00 >55% EF 2C: 70.30 >55% EF BiP: 64.50 >55% Mitral Valve MV Pk E: 0.99 MV PK A: 0.50 MV Decel Time: 127.00 E/A: 2.00 E'Lateral: 20.20 E'Medial: 11.20 E/E' Med: 8.90 E/E' Lat: 4.90 PHT: 37.00 MVA PHT: 5.95 Decel Bucks: 7.84 Aortic Valve AoV Pk Siddharth: 1.29 AoV Mn Siddharth: 0.82 AoV VTI: 0.24 AoV Pk Grad: 7.00 Aov Mn Grad: 4.00 JANETT Cont.VTI: 3.96 LVOT LVOT Pk Siddharth: 1.20 LVOT Mn Siddharth: 0.70 LVOT VTI: 0.21 LVOT Pk Grad: 6.00 LVOT Mn Grad: 3.00 LVOT Diam: 2.40 LVOT Area: 4.52 Diastolic Function MV Pk E: 0.99 MV Pk A: 0.50 E/A: 2.00 E'Medial: 11.20 E/E' Med: 8.90 E' Laterial: 20.20 E/E' Lat: 4.90 Right Ventricle TAPSE (mm): 26.00 TVS' Siddharth: 13.00 Tricuspid Valve TR Pk Siddharth: 2.59 TR Pk Grad: 27.00 RA Press: 3.00 RVSP: 30.00 Great Vessels Aorta Ao Root-2D: 3.60 2.0-3.7 cm Sinus of Valsalva: 3.60 2.0-3.5 cm Ao Asc: 1.70 2.1-3.4 cm Ao Arch: 3.20 Pulmonary Valve PV Pk Siddharth: 1.18 Peak PV Grad: 6.00 Updated in Other Vendor System with Status of Final Brandon Guadarrama MD electronically signed on 09/16/2022 8:58:36 PM with status of Final
== END ==
LOC: HO.CARD 14:46
PROVIDERS: PCP Internal Medicine; Visit Provider Internal Medicine
DX: Q20.3 Discordant ventriculoarterial connection (principal)
CPT/HCPCS: 93306

== ENCOUNTER 2022-11-16 14:34 | Outpatient (AMB) | payer BC, OTHER, SELFPAY ==
[2022-11-16 14:39] VITALS: BP 138/90; PULSE 90; O2SAT 99; BMI 18.5
--- NOTE | 2022-11-16 14:39 | MHC.PC.OV ---
Vital Signs 11/16/22 14:39 Height 6 ft 2 in Weight 144 lb BMI 18.5 BP 138/90 H Blood Pressure Location Lt brachial Position Sitting Pulse 90 Pulse Source Pulse Oximeter Temp Source Skin Pulse Oximetry (%) 99 Oxygen Delivery Method Room Air Intake Visit Reasons: Irregular heartbeat Intake Note: pt states fpc irregular heart beat General Assignment Reporter Required: No Allergies pistachio nut Allergy (Verified 11/16/22 14:53) Anaphylaxis Medication List - Last Reconciled 11/16/22 by RAMAKRISHNA Graham No Known Home Meds Tobacco use date assessed: 11/16/22 HPI Irregular heartbeat HPI Details Patient is a 22-year-old male who presents today for an office visit due to intermittent fast heartbeat since 2019. Patient of Dr. Haney. Medical history significant for transposition the great arteries at [id number]-patient reports seeing [facility] cardiology, last visit was 4 years ago-he did have referral to see Cardiology although he never was contacted, will place new referral; acne, anxiety. Patient reports that he feels like he has increased heartbeat when he feels anxious, stressed out, or when he changes position. He reports his heart rate yesterday was 152 [address] at the time. Patient denies shortness of breath or chest pain in the office today. Reports intermittent chest pain with anxiety. Reports having counseling in the past, would like to see counseling again. Reports intermittent acid reflux which improves with [id number] Tums. Patient's mother Dia present over the phone as well. 09/05/2022 Test Reason : CHEST PAIN Blood Pressure : / mmHG Vent. Rate : 085 BPM Atrial Rate : 085 BPM P-R Int : 154 ms QRS Dur : 118 ms QT Int : 352 ms P-R-T Axes : 073 070 064 degrees QTc Int : 418 ms Normal sinus rhythm Non-specific intra-ventricular conduction delay Borderline ECG When compared with ECG of 08-JUN-2022 13:17, No significant change was found 09/15/2022 Conclusions: - Normal left ventricular size, thickness, systolic function, and wall motion. The visually estimated ejection fraction is between 55-60%. Diastolic function is normal for age. - Normal right ventricular cavity size and systolic function. - The left atrium is likely dilated. The right atrium is normal in size. - There is mild dilatation of the sinuses of Valsalva measuring 3.60 cm. - Cannot rule out bicuspid aortic valve. [facility], [facility] Medical History Asthma Chest pain Dysphagia Generalized anxiety disorder GERD (gastroesophageal reflux disease) Irritable bowel syndrome Odynophagia Surgical History Transposition of the great arteries Family History Other Stomach cancer Social History Household Members: Family Housing: Other Do you presently have visiting nurse or other home services: No Alcohol intake: current Alcohol intake frequency: holidays/special occasions only Patient Tobacco Use Status: Never used Tobacco e-Cigarette/Vaping Use: Never Used Second Hand Smoke Exposure: No Advance Directives Date on File: 02/27/22 service: No Current occupational status: employed Cognitive needs: No Hearing needs: No Vision needs: No Questionnaire PHQ-9 Over the last 2 weeks, how often have you been bothered by any of the following problems? 1. Little interest or pleasure in doing things: not at all 2. Feeling down, depressed, or hopeless: not at all 3. Trouble falling or staying asleep, or sleeping too much: not at all 4. Feeling tired or having little energy: not at all 5. Poor appetite or overeating: not at all 6. Feeling bad about yourself - or that you are a failure or have let yourself or your family down: not at all 7. Trouble concentrating on things, such as reading the newspaper or watching television: not at all 8. Moving or speaking so slowly that other people could have noticed. Or the opposite - being so fidgety or restless that you have been moving around a lot more than usual: not at all 9. Thoughts that you would be better off or of hurting yourself in some way: not at all Total score: 0 Depression Screening Interpretation: Negative 00049 - PHQ-9 Billing: Yes Source: Developed by Drs. Dominic Ryan, Karena Arellano, Chris Taylor and colleagues, with an educational petra from [employer]. Thrive Questionnaire Date Thrive assessed: 02/24/21 AUDIT C Alcohol Use Questionnaire (AUDIT-C) 1. How often do you have a drink containing alcohol?: Monthly or less 2. How many drinks containing alcohol do you have on a typical day when you are drinking?: 1 or 2 3. How often do you have six or more drinks on one occasion?: Never Total Score: 1 Score Reviewed/Action Taken: No JACKY-7 AMB Questionnaire JACKY-7 Date JACKY - 7 assessed: 11/16/22 Source: Developed by Drs. Dominic Ryan, Karena Arellano, Chris Taylor and colleagues, with an educational petra from [employer]. Review of Systems Const Denies body aches, Denies chills, Denies fever(s) and Denies headache(s) Eyes Denies change in vision ENT Denies dizziness, Denies otalgia, Denies headache(s), Denies nasal discharge, Denies sinus pain and Denies sore throat Card Reports as per HPI, Denies chest pain, Denies edema, Denies lightheadedness and Denies dyspnea Resp Denies cough and Denies dyspnea GI Denies abdominal pain Denies dysuria Musc Denies myalgias Skin/Breast Denies rash Neuro Denies dizziness and Denies headache(s) Physical exam (Primary Care) Vital Signs: Last Vital Signs Pulse 90 11/16/22 14:39 BP 138/90 H 11/16/22 14:39 Pulse Ox 99 11/16/22 14:39 Oxygen Delivery Method Room Air 11/16/22 14:39 BMI result Body Mass Index 18.5 Tobacco/Smoking Status: Tobacco use Status Tobacco use date assessed 11/16/22 11/16/22 14:40 Patient Tobacco Use Status Never used Tobacco 11/16/22 14:40 e-Cigarette/Vaping Use Never Used 11/16/22 14:40 PHQ-9: PHQ-9 Score PHQ-9: Total score 0 11/16/22 14:40 Depression Screening Interpretation: Negative Thrive Assessment: Date of Thrive Assessment Date Thrive assessed 02/24/21 11/16/22 14:40 Const General: cooperative and no acute distress Orientation/consciousness: patient oriented x3 HENMT Head: Yes normocephalic and Yes atraumatic Face and sinus: Yes sinuses nontender Mouth: oropharynx normal and moist mucous membranes Throat: Yes posterior oropharynx normal Eyes General: appearance normal, both eyes and all related structures Pupils: Equal, round and reactive pupils present EOM: EOMs intact bilaterally Neck Neck: Yes normal visual inspection, Yes full ROM and Yes no lymphadenopathy Thyroid: Thyroid normal Resp Effort & Inspection: normal respiratory effort and able to speak in complete sentences Auscultation: clear to auscultation bilaterally, no crackles, no rales, no rhonchi and no wheezes Cardio Rate: regular rate Rhythm: regular rhythm Heart sounds: S1 normal heart sound present, S2 normal heart sound present and Murmur heart sound present GI Auscultation: normal bowel sounds Skin Other: Moderate acne noted to face and neck Neuro General: patient oriented x3 Cranial nerves: Yes Equal, round and reactive pupils present Gait exam (Neuro): Normal gait present Extrem General: Yes full ROM and No edema Assessment and Plan Assessment & Plan (1) Anxiety: Code(s): F41.9 - Anxiety disorder, unspecified Plan: Start hydroxyzine 10 mg b.i.d. p.r.n.-educated about drowsiness Counseling referral (2) Acne: Code(s): L70.9 - Acne, unspecified Plan: Patient requested referral to see Dermatology, referral placed (3) Transposition of the great arteries: Comment: Dr. Meadows echocardiogram August 2022Normal left ventricular size, thickness, systolic function, and wall motion. The visually estimated ejection fraction is between 55-60%. Diastolic function is normal for age. - Normal right ventricular cavity size and systolic function. - The left atrium is likely dilated. The right atrium is normal in size. - There is mild dilatation of the sinuses of Valsalva measuring 3.60 cm. - Cannot rule out bicuspid aortic valve. 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
== END 2022-11-16 15:11 | disposition home or self-care (01) ==
PROVIDERS: PCP Internal Medicine; Visit Provider Nurse Practitioner Family
DX: F41.9 Anxiety disorder, unspecified (principal); L70.9 Acne, unspecified; Q20.3 Discordant ventriculoarterial connection
CPT/HCPCS: 99213

== ENCOUNTER 2022-11-16 15:16 | Outpatient (REF) | payer BC, OTHER, SELFPAY ==
[2022-11-16 16:56] LABS: TSH reflex Free T4 0.71 uIU/mL (0.32-4.0); Vitamin D 25-OH Total 28.2 ng/mL (>30)
== END 2022-11-16 15:17 | disposition home or self-care (01) ==
LOC: HO.LAB 15:16
PROVIDERS: PCP Internal Medicine; Visit Provider Nurse Practitioner Family
DX: F41.9 Anxiety disorder, unspecified (principal)
CPT/HCPCS: 36415; 82306; 84443

== ENCOUNTER 2023-02-15 08:37 | Outpatient (AMB) | payer OTHER, SELFPAY ==
--- NOTE | 2023-02-15 08:38 | MHC.PC.OV ---
Intake Visit Reasons: Headache/ Nasuea/ Cough Intake Note: pt states headache, nausea, cough and sore throat X3-4days Allergies pistachio nut Allergy (Verified 02/15/23 08:40) Anaphylaxis Medication List - Last Reconciled 02/15/23 by RAMAKRISHNA Graham cholecalciferol (vitamin D3) 25 mcg PO DAILY hydroxyzine HCl 10 mg PO BID PRN Tobacco use date assessed: 02/15/23 HPI Headache/ Nasuea/ Cough HPI Details This is a telehealth visit and patient was verified by name and date of . Patient is a 22-year-old male presents today with headache, nausea, cough, sore throat for the past 4 days, he reports that symptoms are improving today. He has used airborne with mild improvement in symptoms. Reports taking cough drops with minimal improvement in cough. Reports being around sick people. Did not do COVID test, unable to do COVID test today as he is not in the town. Did not use anything for headache. Denies fever or chills, no shortness of breath or chest pain. [facility] Medical History Chest pain Dysphagia Odynophagia GERD (gastroesophageal reflux disease) Generalized anxiety disorder Irritable bowel syndrome Asthma Surgical History Transposition of the great arteries Family History Other Stomach cancer Social History Household Members: Family Housing: Other Do you presently have visiting nurse or other home services: No Alcohol intake: current Alcohol intake frequency: holidays/special occasions only Patient Tobacco Use Status: Never used Tobacco e-Cigarette/Vaping Use: Never Used Second Hand Smoke Exposure: No Advance Directives Date on File: 02/27/22 service: No Current occupational status: employed Cognitive needs: No Hearing needs: No Vision needs: No Questionnaire Thrive Questionnaire Date Thrive assessed: 02/24/21 AUDIT C Alcohol Use Questionnaire (AUDIT-C) 1. How often do you have a drink containing alcohol?: Monthly or less 2. How many drinks containing alcohol do you have on a typical day when you are drinking?: 1 or 2 3. How often do you have six or more drinks on one occasion?: Never Total Score: 1 Score Reviewed/Action Taken: No JACKY-7 AMB Questionnaire JACKY-7 Date JACKY - 7 assessed: 11/16/22 Source: Developed by Drs. Dominic Ryan, Karena Arellano, Chris Taylor and colleagues, with an educational petra from [employer]. Review of Systems Const Denies body aches, Denies chills, Denies fever(s) and Reports headache(s) ENT Denies dizziness, Denies otalgia, Reports headache(s), Denies nasal discharge, Denies sinus pain and Reports sore throat Card Denies chest pain, Denies edema, Denies lightheadedness and Denies dyspnea Resp Reports cough, Denies dyspnea and Denies wheezing GI Denies abdominal pain and Reports nausea Musc Denies myalgias Skin/Breast Denies rash Neuro Denies dizziness and Reports headache(s) Aller/Immun Denies wheezing Physical exam (Primary Care) Tobacco/Smoking Status: Tobacco use Status Tobacco use date assessed 02/15/23 02/15/23 08:39 Patient Tobacco Use Status Never used Tobacco 02/15/23 08:39 e-Cigarette/Vaping Use Never Used 02/15/23 08:39 Thrive Assessment: Date of Thrive Assessment Date Thrive assessed 02/24/21 02/15/23 08:39 Const Other: This is a telehealth visit unable to obtain physical exam Speech is normal Telehealth Telehealth Location of provider rendering services: practice address Location of patient: address on file Patient Identification confirmed using: Name, : Yes Telehealth method: voice only ([phone]// iphone) Patient verbally consented to treatment: Yes Patient verbally consented to billing insurance company: Yes Patient informed of any privacy concerns related to visit: Yes Minutes spent on Phone/Video with Pt.: 6 Assessment and Plan Assessment & Plan (1) URI (upper respiratory infection): Code(s): J06.9 - Acute upper respiratory infection, unspecified Plan: Patient reports the symptoms are improving today, unable to do COVID test today due to being in a different town. Will provide with benzonatate t.i.d. p.r.n. for cough. He can try [id number] Tylenol 650 mg every 6 hours as needed for headache. Increase fluid consumption. Signs and symptoms reviewed when to notify provider or go to the emergency department. Patient agreed with the plan Medications: New benzonatate 100 mg PO TID PRN 15 caps 0RF cough J06.9 - Acute upper respiratory infection, unspecified Coding Level of Care Code Tele Est Pt Level 3 (72877) Diagnoses URI (upper respiratory infection) J06.9
== END 2023-02-15 10:22 | disposition home or self-care (01) ==
LOC: HO.HMGH 08:37
PROVIDERS: PCP Internal Medicine; Visit Provider Nurse Practitioner Family
DX: J06.9 Acute upper respiratory infection, unspecified (principal)
CPT/HCPCS: 99441

== ENCOUNTER 2023-03-15 09:56 | Outpatient (AMB) | payer OTHER, SELFPAY ==
--- NOTE | 2023-03-15 09:57 | MHC.PC.OV ---
Vital Signs 03/15/23 09:59 Height 6 ft 2 in Weight 66.678 kg BMI 18.9 BP 132/68 Blood Pressure Location Lt brachial Position Sitting Pulse 81 Pulse Source Pulse Oximeter Pulse Oximetry (%) 98 Oxygen Delivery Method Room Air Intake Visit Reasons: Annual Exam Allergies pistachio nut Allergy (Verified 03/15/23 10:03) Anaphylaxis Medication List - Last Reconciled 03/15/23 by Fredrick Haney MD cholecalciferol (vitamin D3) 25 mcg PO DAILY hydroxyzine HCl 10 mg PO BID PRN Tobacco use date assessed: 02/15/23 Dental Screening Dental Screen Date: 03/15/23 Did you have a dental visit in the last 12 months?: Yes Did you have a dental problem in the last 6 months where you did not have access to dental care?: No Was dental information given to patient?: Patient has dentist HPI Annual Exam HPI Details 22-year-old male with a 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 Patient had an echocardiogram August 2022 with normal left ventricular size thickness systolic function and wall motion that the visual ejection fraction 55-60% diastolic function is normal normal right ventricular size and systolic function left atrium dilated right atrium normal mild dilatation of the sinuses of Valsalva measuring 3.6 cm cannot rule out bicuspid aortic valve patient has been re-referred to cardiology. Reviewed also the notes patient has been in the ER January 2022 with abdominal burning.. c [facility] Medical History (Updated 03/15/23 @ 11:02 by Fredrick Haeny MD) Esophagitis Chest pain Dysphagia Odynophagia GERD (gastroesophageal reflux disease) Generalized anxiety disorder Irritable bowel syndrome Asthma Surgical History Transposition of the great arteries Family History (Updated 03/15/23 @ 10:04 by Elyssa Decker CMA) Other Stomach cancer Social History Household Members: Family Housing: Other Do you presently have visiting nurse or other home services: No Alcohol intake: current Alcohol intake frequency: holidays/special occasions only Patient Tobacco Use Status: Never used Tobacco e-Cigarette/Vaping Use: Never Used Second Hand Smoke Exposure: No Advance Directives Date on File: 02/27/22 service: No Current occupational status: employed Cognitive needs: No Hearing needs: No Vision needs: No Questionnaire PHQ-9 Over the last 2 weeks, how often have you been bothered by any of the following problems? 1. Little interest or pleasure in doing things: not at all 2. Feeling down, depressed, or hopeless: not at all 3. Trouble falling or staying asleep, or sleeping too much: not at all 4. Feeling tired or having little energy: not at all 5. Poor appetite or overeating: not at all 6. Feeling bad about yourself - or that you are a failure or have let yourself or your family down: not at all 7. Trouble concentrating on things, such as reading the newspaper or watching television: not at all 8. Moving or speaking so slowly that other people could have noticed. Or the opposite - being so fidgety or restless that you have been moving around a lot more than usual: not at all 9. Thoughts that you would be better off or of hurting yourself in some way: not at all Total score: 0 Depression Screening Interpretation: Negative Depression Screening Done: Yes 83370 - PHQ-9 Billing: Yes Source: Developed by Drs. Dominic Ryan, Karena Arellano, Chris Taylor and colleagues, with an educational petra from [employer]. Thrive Questionnaire Date Thrive assessed: 03/15/23 I am a: Patient What is your living situation today?: I have a steady place to live Within the past 12 months, did the food you bought not last and you didn't have the money to get more?: Never true Within the past 12 months, did you worry whether your food would run out before you got money to buy more?: Never true Do you have trouble paying for medicines?: No Do you have trouble getting transportation to medical appointments?: No Do you have trouble paying your heating and electricity bill?: No Do you have trouble taking care of your child, family member or friend?: No Do you have trouble with day-to-day activities such as bathing, preparing meals, shopping, managing finances, etc.?: No Are you currently unemployed and looking for a job?: No Are you interested in more education?: No Currently or been in a relationship where the following occur: no concerns reported AUDIT C Alcohol Use Questionnaire (AUDIT-C) 1. How often do you have a drink containing alcohol?: Monthly or less 2. How many drinks containing alcohol do you have on a typical day when you are drinking?: 1 or 2 3. How often do you have six or more drinks on one occasion?: Never Total Score: 1 Score Reviewed/Action Taken: No JACKY-7 AMB Questionnaire JACKY-7 Date JACKY - 7 assessed: 03/15/23 Feeling nervous, anxious, or on edge: 3 = Nearly every day Not being able to stop or control worryin = More than half the days Worrying too much about different things: 2 = More than half the days Trouble relaxin = More than half the days Being so restless that it is hard to sit still: 2 = More than half the days Becoming easily annoyed or irritable: 2 = More than half the days Feeling afraid as if something awful might happen: 2 = More than half the days Total JACKY-7 score (0-4 normal; 5-9 mild; 10-14 moderate; 15-21 severe): 15 Source: Developed by Drs. Dominic Ryan, Karena Arellano, Chris Taylor and colleagues, with an educational petra from [employer]. Review of Systems Const Denies poor appetite and Denies weakness Eyes Denies no additional complaints ENT Reports Normal hearing present, Denies dizziness, Denies nasal congestion, Denies tinnitus and Denies sore throat Card Denies chest pain, Denies syncope, Denies rapid heart rate and Denies dyspnea Resp Denies cough and Denies dyspnea GI Denies change in stool character, Reports constipation, Denies diarrhea, Denies nausea and Denies vomiting Denies dysuria and Denies urinary frequency Neuro Reports Normal hearing present, Denies confusion, Denies dizziness, Denies syncope and Denies weakness Psych Denies confusion Physical exam (Primary Care) Vital Signs: Last Vital Signs Pulse 81 03/15/23 09:59 BP 132/68 03/15/23 09:59 Pulse Ox 98 03/15/23 09:59 Oxygen Delivery Method Room Air 03/15/23 09:59 BMI result Body Mass Index 18.9 Tobacco/Smoking Status: Tobacco use Status Tobacco use date assessed 02/15/23 03/15/23 09:57 Patient Tobacco Use Status Never used Tobacco 03/15/23 09:57 e-Cigarette/Vaping Use Never Used 03/15/23 09:57 PHQ-9: PHQ-9 Score PHQ-9: Total score 0 03/15/23 10:31 Depression Screening Interpretation: Negative Thrive Assessment: Date of Thrive Assessment Date Thrive assessed 03/15/23 03/15/23 10:09 Currently or been in a relationship where the following occur: no concerns reported Const General: alert and awake; No confusion Orientation/consciousness: No confusion HENMT Head: Yes normocephalic Ears: external ears normal and TM's normal bilaterally Face and sinus: Yes normal facial exam Mouth: moist mucous membranes Throat: Yes tonsils normal Eyes Conjunctivae: conjunctivae normal Pupils: Equal, round and reactive pupils present and Pupil accommodation reflex normal Direct Ophthalmoscopy: normal light reflex Neck Neck: No lymphadenopathy Thyroid: Thyroid normal Chest Chest palpation & inspection: normal inspection of the chest Resp Effort & Inspection: normal respiratory effort and no audible wheezes Auscultation: clear to auscultation bilaterally, no crackles, no wheezes and lung sounds not diminished Cardio Rate: regular rate Rhythm: regular rhythm Peripheral pulses: radial pulses present and dorsalis pedis present GI Palpation (GI): no masses Auscultation: normal bowel sounds and normoactive bowel sounds Rectal Exam - Male: Yes deferred Skin General skin exam: no rashes or lesions noted Rashes: no rashes Neuro General: deep tendon reflexes 2+ bilaterally and No confusion Cranial nerves: Yes Equal, round and reactive pupils present, Yes Midline tongue present, Yes Normal hearing present and Yes Ability to bilaterally elevate shoulders present Cognition (Neuro): normal cognition Gait exam (Neuro): Normal gait present Motor exam (neuro): 5/5 motor strength present throughout Deep tendon reflexes (DTR's): Right brachioradialis reflex intensity grade: 2+, Left brachioradialis reflex intensity grade: 2+, Right patellar reflex intensity grade: 2+ and Left patellar reflex intensity grade: 2+ Extrem General: No edema Office Procedures Flu Questionnaire Does the patient have a severe egg allergy?: No Does the patient have severe life threatening allergies?: No Does the patient have a fever or illness today?: No Has the patient ever had Guillain-Brogue Syndrome?: No Has the patient ever had any past reaction to a flu shot?: No Immunizations flu vacc [id number] 6mos up(PF) 60 mcg(15 mcgx4)/0.5 mL IM syringe Performing Provider: Fredrick Haney MD [facility] Administered by: Elyssa Decker CMA on 03/15/23 11:04 Dose Route Admin Location Dispensed Lot Number Expiration Date [facility] 0.5 mL IM Left Deltoid 0.5 mL [id number] 10/28/23 [id number] [employer] VIS Given Date VIS Provided VIS Publication Date 03/15/23 Single Vaccine 20 Eligibility Eligibility Date Funding Source Not VFC Eligible 03/15/23 Private Assessment and Plan Assessment & Plan (1) Annual physical exam: Code(s): Z00.00 - Encounter for general adult medical examination without abnormal findings (2) Transposition of the great arteries: Comment: Dr. Meadows echocardiogram August 2022Normal left ventricular size, thickness, systolic function, and wall motion. The visually estimated ejection fraction is between 55-60%. Diastolic function is normal for age. - Normal right ventricular cavity size and systolic function. - The left atrium is likely dilated. The right atrium is normal in size. - There is mild dilatation of the sinuses of Valsalva measuring 3.60 cm. - Cannot rule out bicuspid aortic valve. 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 Plan: Patient up to now has not seen Cardiology, discussed on the need and will follow-up on this (3) Status post dilation of esophageal narrowing: Code(s): Z98.890 - Other specified postprocedural states; Z87.19 - Personal history of other diseases of the digestive system Plan: Referral to Gastroenterology done (4) Allergic reaction: Code(s): T78.40XA - Allergy, unspecified, initial encounter Plan: Will refer to Allergy and immunology (5) Generalized anxiety disorder: Comment: Counseling Code(s): F41.1 - Generalized anxiety disorder Plan: Continue with counseling and therapy (6) Impacted cerumen of both ears: Code(s): H61.23 - Impacted cerumen, bilateral Plan: Patient will call if wants to have ear flushing (7) Acne: Code(s): L70.9 - Acne, unspecified Plan: Dermatology referral done Orders: Orders Vitamin B12 and Folate Today K22.10 - Ulcer of esophagus without bleeding Influenza [id number] Immunization Today Z23 - Encounter for immunization Complete Blood Count Auto Diff Today K22.10 - Ulcer of esophagus without bleeding Comprehensive Met. Panel Today K22.10 - Ulcer of esophagus without bleeding Free T4 (Free Thyroxine) Today K22.10 - Ulcer of esophagus without bleeding Lipid Panel Today E78.00 - Pure hypercholesterolemia, unspecified, K22.10 - Ulcer of esophagus without bleeding Thyroid Stimulating Hormone Today K22.10 - Ulcer of esophagus without bleeding Vitamin D 25-OH Total Today K22.10 - Ulcer of esophagus without bleeding Referrals Allergy & Immunology Referral T78.40XA - Allergy, unspecified, initial encounter Gastroenterology Referral K22.10 - Ulcer of esophagus without bleeding Dermatology Referral L70.9 - Acne, unspecified Coding Level of Care Code Est Pt Prev Care 18-39y([id number]) Diagnoses Annual physical exam Z00.00 Transposition of the great arteries Q20.3 Status post dilation of esophageal narrowing Z98.890; Z87.19 Allergic reaction T78.40XA Generalized anxiety disorder F41.1 Impacted cerumen of both ears H61.23 Acne L70.9
[2023-03-15 09:59] VITALS: BP 132/68; PULSE 81; O2SAT 98; BMI 18.9
== END 2023-03-15 11:07 | disposition home or self-care (01) ==
PROVIDERS: Visit Provider Internal Medicine
DX: Z23 Encounter for immunization (principal)
CPT/HCPCS: 90471; 90686; 99395

== ENCOUNTER 2023-07-10 08:51 | Outpatient (AMB) | payer OTHER, SELFPAY ==
[2023-07-10 09:13] VITALS: BP 122/76; PULSE 83; O2SAT 98; BMI 19.0
--- NOTE | 2023-07-10 09:13 | A.OFFPC_ITS ---
Vital Signs 07/10/23 09:13 Height 6 ft 2 in Weight 148 lb BMI 19.0 BP 122/76 Blood Pressure Location Lt brachial Position Sitting Pulse 83 Pulse Source Pulse Oximeter Pulse Oximetry (%) 98 Oxygen Delivery Method Room Air Intake Visit Reasons: Pain when eating, swallowing, abdomen pain Allergies pistachio nut Allergy (Verified 07/10/23 09:14) Anaphylaxis Medication List - Last Reconciled 07/10/23 by Fredrick Haney MD cholecalciferol (vitamin D3) 25 mcg PO DAILY hydroxyzine HCl 10 mg PO BID PRN sucralfate (Carafate) 10 mL PO BID 30 days Tobacco use date assessed: 07/10/23 Dental Screening Dental Screen Date: 07/10/23 Did you have a dental visit in the last 12 months?: Yes Did you have a dental problem in the last 6 months where you did not have access to dental care?: No Was dental information given to patient?: Patient has dentist HPI Pain when eating, swallowing, abdomen pain HPI Details 22-year-old male with a history of trans position of the great arteries history of dilatation of the esophageal narrowing generalized anxiety disorder coming in for follow-up. Last seen in February 2023. Review of the notes ER visit in May 2023 chest pain after eating was given Maalox and sent an Rx for Carafate. 2021 patient did go to the emergency room having dysphagia and the scope was done showing some circular rings and dilatation in the GE junction. Patient was given Carafate that time which relieved the patient also complaining of cough that has been going on for few months productive but no shortness of breath no fevers. Patient also complains of bilateral shoulder pain but no limitation of movement deny any fall or trauma. [facility] Medical History (Updated 07/10/23 @ 09:59 by Fredrick Haney MD) GERD (gastroesophageal reflux disease) Esophagitis Chest pain Dysphagia Odynophagia Generalized anxiety disorder Irritable bowel syndrome Asthma Surgical History Transposition of the great arteries Family History (Updated 03/15/23 @ 10:04 by Elyssa Decker [facility]) Other Stomach cancer Social History Household Members: Family Housing: Other Do you presently have visiting nurse or other home services: No Alcohol intake: current Alcohol intake frequency: holidays/special occasions only Patient Tobacco Use Status: Never used Tobacco e-Cigarette/Vaping Use: Never Used Second Hand Smoke Exposure: No Advance Directives Date on File: 02/27/22 service: No Current occupational status: employed Cognitive needs: No Hearing needs: No Vision needs: No Questionnaire PHQ-9 Over the last 2 weeks, how often have you been bothered by any of the following problems? 1. Little interest or pleasure in doing things: not at all 2. Feeling down, depressed, or hopeless: not at all 3. Trouble falling or staying asleep, or sleeping too much: not at all 4. Feeling tired or having little energy: not at all 5. Poor appetite or overeating: not at all 6. Feeling bad about yourself - or that you are a failure or have let yourself or your family down: not at all 7. Trouble concentrating on things, such as reading the newspaper or watching television: not at all 8. Moving or speaking so slowly that other people could have noticed. Or the opposite - being so fidgety or restless that you have been moving around a lot more than usual: not at all 9. Thoughts that you would be better off or of hurting yourself in some way: not at all Total score: 0 Depression Screening Interpretation: Negative Depression Screening Done: Yes 64479 - PHQ-9 Billing: Yes Source: Developed by Drs. Dominic Ryan, Karena Arellano, Chris Taylor and colleagues, with an educational petra from [employer]. Thrive Questionnaire Date Thrive assessed: 07/10/23 I am a: Patient What is your living situation today?: I have a steady place to live Within the past 12 months, did the food you bought not last and you didn't have the money to get more?: Never true Within the past 12 months, did you worry whether your food would run out before you got money to buy more?: Never true Do you have trouble paying for medicines?: No Do you have trouble getting transportation to medical appointments?: No Do you have trouble paying your heating and electricity bill?: No Do you have trouble taking care of your child, family member or friend?: No Do you have trouble with day-to-day activities such as bathing, preparing meals, shopping, managing finances, etc.?: No Are you currently unemployed and looking for a job?: No Are you interested in more education?: No Currently or been in a relationship where the following occur: no concerns reported THRIVE Score: 0 AUDIT C Alcohol Use Questionnaire (AUDIT-C) 1. How often do you have a drink containing alcohol?: Monthly or less 2. How many drinks containing alcohol do you have on a typical day when you are drinking?: 1 or 2 3. How often do you have six or more drinks on one occasion?: Never Total Score: 1 Score Reviewed/Action Taken: No JACKY-7 AMB Questionnaire JACKY-7 Date JACKY - 7 assessed: 07/10/23 Feeling nervous, anxious, or on edge: 3 = Nearly every day Not being able to stop or control worryin = More than half the days Worrying too much about different things: 2 = More than half the days Trouble relaxin = More than half the days Being so restless that it is hard to sit still: 2 = More than half the days Becoming easily annoyed or irritable: 2 = More than half the days Feeling afraid as if something awful might happen: 2 = More than half the days Total JACKY-7 score (0-4 normal; 5-9 mild; 10-14 moderate; 15-21 severe): 15 Source: Developed by Drs. Dominic Ryan, Karena Arellano, Chris Taylor and colleagues, with an educational petra from [employer]. Physical exam (Primary Care) Vital Signs: Last Vital Signs Pulse 83 07/10/23 09:13 BP 122/76 07/10/23 09:13 Pulse Ox 98 07/10/23 09:13 Oxygen Delivery Method Room Air 07/10/23 09:13 BMI result Body Mass Index 19.0 Tobacco/Smoking Status: Tobacco use Status Tobacco use date assessed 07/10/23 07/10/23 09:21 Patient Tobacco Use Status Never used Tobacco 07/10/23 09:21 e-Cigarette/Vaping Use Never Used 07/10/23 09:21 PHQ-9: PHQ-9 Score PHQ-9: Total score 0 07/10/23 09:21 Depression Screening Interpretation: Negative Thrive Assessment: Date of Thrive Assessment Date Thrive assessed 07/10/23 07/10/23 09:21 Currently or been in a relationship where the following occur: no concerns reported Const General: alert; No acute distress Eyes Conjunctivae: conjunctivae normal Resp Auscultation: clear to auscultation bilaterally Cardio Rate: regular rate Rhythm: regular rhythm GI Inspection: Yes normal to inspection Extrem General: Yes normal to inspection and No edema Assessment and Plan Assessment & Plan (1) GERD (gastroesophageal reflux disease): Code(s): K21.9 - Gastro-esophageal reflux disease without esophagitis Plan: Avoid the foods that causes that usually spicy foods, tomato products, juices, coffee, soda and foods that your sensitive to. After eating do not lie down, allow 3-4 hours before in lie down. And keep the head of bed above 30 degrees to avoid the acid from going up. Carafate prescription sent in referral to Gastroenterology done. (2) Transposition of the great arteries: Comment: Dr. Meadows echocardiogram August 2022Normal left ventricular size, thickness, systolic function, and wall motion. The visually estimated ejection fraction is between 55-60%. Diastolic function is normal for age. - Normal right ventricular cavity size and systolic function. - The left atrium is likely dilated. The right atrium is normal in size. - There is mild dilatation of the sinuses of Valsalva measuring 3.60 cm. - Cannot rule out bicuspid aortic valve. 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 Orders: Orders XR chest 2V Today R05.9 - Cough, unspecified Referrals Gastroenterology Referral K21.9 - Gastro-esophageal reflux disease without esophagitis Medications: New sucralfate (Carafate) 10 mL PO BID 30 days 600 mL 0RF K21.9 - Gastro-esophageal reflux disease without esophagitis Coding Level of Care Code Est Pt Level 4 (50403) Diagnoses GERD (gastroesophageal reflux disease) K21.9 Transposition of the great arteries Q20.3 Cough R05.9
== END 2023-07-10 10:04 | disposition home or self-care (01) ==
PROVIDERS: PCP Internal Medicine; Visit Provider Internal Medicine
DX: K21.9 Gastro-esophageal reflux disease without esophagitis (principal); Q20.3 Discordant ventriculoarterial connection; R05.9 Cough, unspecified
CPT/HCPCS: 99214

== ENCOUNTER 2023-07-10 10:12 | Outpatient (REF) | payer OTHER, SELFPAY ==
--- NOTE | ~2023-07-10 | XR_ITS ---
EXAMINATION: XR CHEST CLINICAL INFORMATION: Cough. COMPARISON: 09/05/2022, and 06/08/[address] scan of 02/23/2022. TECHNIQUE: 2 views of the chest were obtained. FINDINGS: There is no gross pneumothorax. Cardiac silhouette within normal limits in size. No new focal consolidation to suggest pneumonia. No pleural effusion. Median sternotomy wires redemonstrated. Slight rightward curvature of the thoracic spine. XR/XR chest 2V IMPRESSION: No evidence of pneumonia.
== END 2023-07-10 10:13 | disposition home or self-care (01) ==
LOC: HO.XRAY 10:12
PROVIDERS: PCP Internal Medicine; Visit Provider Internal Medicine
DX: R05.9 Cough, unspecified (principal)
CPT/HCPCS: 71046

== ENCOUNTER 2023-09-12 13:27 | Outpatient (AMB) | payer OTHER, SELFPAY ==
--- NOTE | 2023-09-12 13:41 | A.OFFVIS_ITS ---
Vital Signs 09/12/23 13:44 Height 6 ft 2 in Weight 150 lb BMI 19.3 BP 137/68 Blood Pressure Location Lt brachial Position Sitting Pulse 67 Intake Visit Reasons: Gastroesophageal reflux disease (GERD) Intake Note: Patient new consult for GERD. Patient cc: acid reflex with burning sensation on his chest and throat, swallowing problems, abdominal pain with bloating, denies any other GI issues. Manpower Development Specialist Required: No Accompanied by: Parent Allergies pistachio nut Allergy (Verified 09/12/23 13:40) Anaphylaxis Medication List - Last Reconciled 09/12/23 by Destiny Interiano PA-C sucralfate (Carafate) 10 mL PO BID 30 days HPI Comments Details: 22-year-old anxious male history of transposition of the great arteries referred with dysphagia and acid reflux He has history EGD [address] Dr. Paredes of dilatation of the esophageal narrowing-[facility] ers-was recommended to repeat EGD Seen in the ER May 2023 with complaints chest pain after eating was given Maalox and sent an Rx for Carafate. PPI bid-he has not taken since 2021- liquid was prescribed- but cost at nearly 1 K-per his his mom he did not take He refused to take capsule or tablets as well however did say he had some relief with carafate He is undergoing cardiac testing- Dr. Liao-[facility] - he says all well-however Holter monitor for reassurance according to patient and mom He has no other GI or general complaints No nausea, vomiting, hematemesis, hematochezia fever or chills [facility] Medical History (Updated 09/13/23 @ 10:17 by Destiny Interiano PA-C) Dysphagia GERD (gastroesophageal reflux disease) Esophagitis Chest pain Odynophagia Generalized anxiety disorder Irritable bowel syndrome Asthma Surgical History Transposition of the great arteries Family History Other Stomach cancer Social History Household Members: Family Housing: Other Do you presently have visiting nurse or other home services: No Alcohol intake: current Alcohol intake frequency: holidays/special occasions only Patient Tobacco Use Status: Never used Tobacco e-Cigarette/Vaping Use: Never Used Second Hand Smoke Exposure: No Advance Directives Date on File: 02/27/22 service: No Current occupational status: employed Cognitive needs: No Hearing needs: No Vision needs: No Review of Systems Const All systems reviewed & are unremarkable except as noted in HPI and below ENT Reports dysphagia Card Reports chest pain (right-intermittent sees cardiology- [facility]) GI Reports dysphagia, Reports heartburn, Denies nausea and Denies vomiting Psych Reports anxiety Physical Exam Vital Signs: Last Vital Signs Pulse 67 09/12/23 13:44 BP 137/68 09/12/23 13:44 BMI result Body Mass Index 19.3 Const General: cooperative, healthy appearing, comfortable, no acute distress and anxious Orientation/consciousness: patient oriented x3 Eyes Sclerae: sclerae normal Resp Effort & Inspection: normal respiratory effort and able to speak in complete sentences Auscultation: clear to auscultation bilaterally, no rales, no rhonchi and no wheezes Cardio Rate: regular rate Heart sounds: Murmur heart sound present GI Palpation (GI): Soft to palpation and nontender Auscultation: normal bowel sounds Neuro General: patient oriented x3 Extrem General: Yes full ROM Psych Appearance: grossly normal and well kempt Speech and movement: Pressured speech present Affect: Animated affect present Attitude: cooperative Thought process: Normal thought process present Thought content: Normal thought content present Insight: Good insight present (Psych) Judgement: Good judgement present (Psych) Results Reviewed Results Reviewed: 01/2022- Plan: Await pathology results. Switch to PO PPI twice daily Liquid Carafate 1 gram twice daily x 2 weeks OK to DC home today and FU in the GI Clinic with Noni Paredes M.D. Repeat EGD in 8 to 12 weeks if pt continues to have dysphagia. Above findings were reviewed with the patien Assessment & Plan Assessment & Plan (1) GERD (gastroesophageal reflux disease): Comment: pleasant anxious- Code(s): K21.9 - Gastro-esophageal reflux disease without esophagitis Category: Medical Plan: Reinforced importance PPI (2) Dysphagia: Comment: intermittent- hx dilation- Repeat EGD possible dilation Discussed procedure, rare risk need for escort Reinforced importance of follow through Code(s): R13.10 - Dysphagia, unspecified Category: Medical Plan: EGD-poss dil (3) Generalized anxiety disorder: Code(s): F41.1 - Generalized anxiety disorder Category: Medical Plan: Reinforced importance of prescribed medications, following regimen, Plan Scheduled for EGD possible dilation However is booking out will get a barium swallow for further evaluation in the interim-if need will move procedure up Eat slowly chew well Omeprazole 40 mg daily- Carafate b.i.d. Reinforce plan of care Orders: Orders EDG - GI Use Only 09/12/23 K21.9 - Gastro-esophageal reflux disease without esophagitis, K22.10 - Ulcer of esophagus without bleeding, K26.9 - Duodenal ulcer, unspecified as acute or chronic, without hemorrhage or perforation, R05.9 - Cough, unspecified Medications: New omeprazole open capsule put in applesauce- 40 mg (2 x 20 mg) PO DAILY 30 days PRN 30 caps 5RF acid reflux/ Refilled sucralfate (Carafate) 10 mL PO BID 30 days 600 mL 0RF K21.9 - Gastro- esophageal reflux disease without esophagitis Patient Instructions: Scheduled for EGD possible dilation However is booking out will get a barium swallow for further evaluation in the interim-if need will move procedure up Eat slowly chew well Omeprazole 40 mg daily-open capsule put in applesauce Carafate b.i.d. Reinforced the plan of care Mom to call with any change in health status i.e. Holter monitor Coding Level of Care Code New Pt Level 4 (65204) Diagnoses GERD (gastroesophageal reflux disease) K21.9 Dysphagia R13.10 Generalized anxiety disorder F41.1 Time Spent (min) 40 Comment Parents present
[2023-09-12 13:44] VITALS: BP 137/68; PULSE 67; BMI 19.3
== END 2023-09-12 14:52 | disposition home or self-care (01) ==
PROVIDERS: PCP Internal Medicine; Visit Provider Physician Assistant
DX: K21.9 Gastro-esophageal reflux disease without esophagitis (principal); R13.10 Dysphagia, unspecified; F41.1 Generalized anxiety disorder
CPT/HCPCS: 99204

== ENCOUNTER → 2023-09-12 13:27 | Outpatient (BNVA) | payer OTHER, SELFPAY | PROVIDERS: PCP Internal Medicine; Visit Provider Physician Assistant | DX: K21.9 Gastro-esophageal reflux disease without esophagitis (principal); R13.10 Dysphagia, unspecified; F41.1 Generalized anxiety disorder | CPT/HCPCS: 99202 ==

== ENCOUNTER 2023-09-13 09:44 | Outpatient (REF) | payer OTHER, SELFPAY ==
--- NOTE | ~2023-09-13 | FL_ITS ---
EXAMINATION: XR FLUOROSCOPY UPPER GI WITH AIR CLINICAL INFORMATION: Reflux. COMPARISON: None TECHNIQUE: Fluoroscopic air contrast upper GI examination was performed utilizing standard techniques with thin and thick barium and effervescent granules. Numerous spot images were obtained. FINDINGS: Dual and single contrast images of the esophagus demonstrate normal caliber, contour, and mucosal pattern. No evidence of mass, or ulcerations identified. Esophageal peristalsis was normal. There is minimal narrowing of the GE junction. A small type I hiatal hernia is present. No significant gastroesophageal reflux was seen during the course of the examination and on reflux views. Dual contrast and single contrast images of the stomach demonstrated a normal contour. Evaluation of the gastric mucosa is limited due to lack of distention from the stomach from poor tolerance of the effervescent granules. Suspect thickened gastric rugal folds. Contrast freely passed into the gastric antrum and duodenal bulb without delay. Single and air-contrast images of the duodenal bulb demonstrate no abnormality. The duodenal sweep has a normal appearance, course, and mucosal fold appearance. The imaged proximal jejunum has a normal fold pattern and caliber. FLUOROSCOPY TIME: 3 minutes 50 seconds Number of Spot Images: 12 Number of Cine: 5 DOSE AREA PRODUCT: 1698 uGy-m2 (microgray-meter squared) FL/FL barium swallow with air IMPRESSION: 1. Minimal narrowing of the GE junction, unknown if clinically significant. Recommend correlation with EGD. 2. Small type I hiatal hernia 3. Limited evaluation of the gastric mucosa due to lack of distention from the stomach from poor tolerance of the effervescent granules/poor retention of gas. Suspect thickened gastric rugal folds and potential underlying gastritis. This procedure was performed by Koko Owen PA-C, and supervised by Dr. Arenas
== END 2023-09-13 09:45 | disposition home or self-care (01) ==
LOC: HO.XRAY 09:44
PROVIDERS: PCP Internal Medicine; Visit Provider Physician Assistant
DX: K21.9 Gastro-esophageal reflux disease without esophagitis (principal); R13.10 Dysphagia, unspecified; Q20.3 Discordant ventriculoarterial connection
CPT/HCPCS: 74221

== ENCOUNTER → 2023-09-13 09:45 | Outpatient (BNV) | payer OTHER, SELFPAY | PROVIDERS: PCP Internal Medicine; Visit Provider Physician Assistant Surgical | DX: K21.9 Gastro-esophageal reflux disease without esophagitis (principal) | CPT/HCPCS: 74246 ==

== ENCOUNTER 2023-09-26 07:46 | Outpatient (AMB) | payer OTHER, SELFPAY ==
[2023-09-26 08:33] VITALS: BP 130/78; PULSE 65; O2SAT 97; BMI 19.3
--- NOTE | 2023-09-26 08:33 | A.OFFPC_ITS ---
Vital Signs 09/26/23 08:33 Height 6 ft 2 in Weight 150 lb 0.6 oz BMI 19.3 BP 130/78 Blood Pressure Location Lt brachial Position Sitting Pulse 65 Pulse Source Pulse Oximeter Pulse Oximetry (%) 97 Oxygen Delivery Method Room Air Intake Visit Reasons: Follow Up Phone Banker Required: No Allergies pistachio nut Allergy (Verified 09/26/23 08:46) Anaphylaxis Medication List - Last Reconciled 09/26/23 by Fredrick Haney MD hydroxyzine HCl 10 mg PO BID PRN omeprazole 40 mg (2 x 20 mg) PO DAILY 30 days Tobacco use date assessed: 09/26/23 Dental Screening Dental Screen Date: 07/10/23 HPI Follow Up HPI Details 22-year-old male with a history of trans position of the great arteries following up with Cardiology GERD history of esophageal and duodenal ulcers generalized anxiety disorder coming in for follow-up. Last seen in 07/18/2023. Patient had some dysphagia and barium swallow was done noted some minimal narrowing of the GE junction and a small hiatal hernia. Patient was seen by the [employer] worker has had dilatation before patient was advised to have a repeat EGD( November 2023) omeprazole is 40 mg once a day and Carafate this twice a day. for the heart - had holter- Dr. Liao cardiology , does have a follow-up with cardiology. Patient feels that the Carafate is causing problems with the stomach and so was advised to stop the Carafate and takes omeprazole. Patient complains though that the omeprazole preparation is difficult to swallow and was asking for a different preparation. Also noted left ear having some irritation and wanted me to check on it. Noted some papule growth on it mildly erythematous was advised to put on some antibiotic ointment on it. As for anxiety patient was asking about the hydroxyzine prescription that was given he still has some and will be taking it as needed. REPLACED BY [facility] Medical History (Updated 09/26/23 @ 09:24 by Fredrick Haney MD) Dysphagia GERD (gastroesophageal reflux disease) Esophagitis Chest pain Odynophagia Generalized anxiety disorder Irritable bowel syndrome Asthma Surgical History Transposition of the great arteries Family History Other Stomach cancer Social History Household Members: Family Housing: Other Do you presently have visiting nurse or other home services: No Alcohol intake: current Alcohol intake frequency: holidays/special occasions only Patient Tobacco Use Status: Never used Tobacco e-Cigarette/Vaping Use: Never Used Second Hand Smoke Exposure: No Advance Directives Date on File: 02/27/22 service: No Current occupational status: employed Cognitive needs: No Hearing needs: No Vision needs: No Questionnaire Thrive Questionnaire Date Thrive assessed: 07/10/23 AUDIT C Alcohol Use Questionnaire (AUDIT-C) 1. How often do you have a drink containing alcohol?: Monthly or less 2. How many drinks containing alcohol do you have on a typical day when you are drinking?: 1 or 2 3. How often do you have six or more drinks on one occasion?: Never Total Score: 1 Score Reviewed/Action Taken: No JACKY-7 AMB Questionnaire JACKY-7 Date JACKY - 7 assessed: 07/10/23 Source: Developed by Drs. Dominic Ryan, Karena Arellano, Chris Taylor and colleagues, with an educational petra from [employer]. Physical exam (Primary Care) Vital Signs: Last Vital Signs Pulse 65 09/26/23 08:33 BP 130/78 09/26/23 08:33 Pulse Ox 97 09/26/23 08:33 Oxygen Delivery Method Room Air 09/26/23 08:33 BMI result Body Mass Index 19.3 Tobacco/Smoking Status: Tobacco use Status Tobacco use date assessed 09/26/23 09/26/23 08:33 Patient Tobacco Use Status Never used Tobacco 09/26/23 08:33 e-Cigarette/Vaping Use Never Used 09/26/23 08:33 Thrive Assessment: Date of Thrive Assessment Date Thrive assessed 07/10/23 09/26/23 08:33 Const General: alert; No acute distress Eyes Conjunctivae: conjunctivae normal Resp Auscultation: clear to auscultation bilaterally Cardio Rate: regular rate Rhythm: regular rhythm Heart sounds: Murmur heart sound present GI Inspection: Yes normal to inspection Extrem General: Yes normal to inspection and No edema Assessment and Plan Assessment & Plan (1) GERD (gastroesophageal reflux disease): Comment: pleasant anxious- Code(s): K21.9 - Gastro-esophageal reflux disease without esophagitis Plan: Avoid the foods that causes that usually spicy foods, tomato products, juices, coffee, soda and foods that your sensitive to. After eating do not lie down, allow 3-4 hours before in lie down. And keep the head of bed above 30 degrees to avoid the acid from going up. On omeprazole. Patient can not tolerate Carafate states having epigastric pain. (2) Transposition of the great arteries: Comment: Dr. Meadows echocardiogram August 2022Normal left ventricular size, thickness, systolic function, and wall motion. The visually estimated ejection fraction is between 55-60%. Diastolic function is normal for age. - Normal right ventricular cavity size and systolic function. - The left atrium is likely dilated. The right atrium is normal in size. - There is mild dilatation of the sinuses of Valsalva measuring 3.60 cm. - Cannot rule out bicuspid aortic valve. 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 (3) Generalized anxiety disorder: Code(s): F41.1 - Generalized anxiety disorder Plan: Patient did ask about the hydroxyzine and will be using it as needed (4) Dysphagia: Comment: intermittent- hx dilation- Repeat EGD possible dilation Discussed procedure, rare risk need for escort Reinforced importance of follow through Code(s): R13.10 - Dysphagia, unspecified Plan: Patient is seeing Gastroenterology and planned EGD/12/18/2023 (5) Ear abrasion: Code(s): S00.419A - Abrasion of unspecified ear, initial encounter Plan: Advised to place an antibiotic ointment on it to prevent infection. Orders: Orders Vitamin D 25-OH Total Today R79.89 - Other specified abnormal findings of blood chemistry Medications: New omeprazole 40 mg (2 x 20 mg) PO DAILY 30 days 60 tabs 3RF K21.9 - Gastro- esophageal reflux disease without esophagitis Refilled hydroxyzine HCl 10 mg PO BID PRN 14 tabs 0RF anxiety F41.9 - Anxiety disorder, unspecified Discontinued omeprazole open capsule put in applesauce- Discontinued Reason: Patient Refused 40 mg (2 x 20 mg) PO DAILY 30 days PRN 30 caps 5RF acid reflux/ Coding Level of Care Code Est Pt Level 4 (01580) Complex EM visit Add On G2211 Diagnoses GERD (gastroesophageal reflux disease) K21.9 Transposition of the great arteries Q20.3 Generalized anxiety disorder F41.1 Dysphagia R13.10 Ear abrasion S00.419A
== END 2023-09-26 09:33 | disposition home or self-care (01) ==
PROVIDERS: PCP Internal Medicine; Visit Provider Internal Medicine
DX: K21.9 Gastro-esophageal reflux disease without esophagitis (principal); Q20.3 Discordant ventriculoarterial connection; S00.412A Abrasion of left ear, initial encounter; F41.1 Generalized anxiety disorder; R13.10 Dysphagia, unspecified
CPT/HCPCS: 99214; G2211

== ENCOUNTER 2023-09-26 09:49 | Outpatient (REF) | payer OTHER, SELFPAY ==
[2023-09-26 10:02] LABS: MANUAL DIFF FLAG NO
[2023-09-26 10:47] LABS: Basophils Absolute Auto 0.1 X10*3/uL (0.0-0.2); Basophils Percent Auto 1.3 % (0-2); Eosinophils Absolute Auto 0.4 X10*3/uL (0.0-0.4); Eosinophils Percent Auto 7.3 % (0-4); Hematocrit 48.9 % (42.0-52.0); Hemoglobin 16.4 g/dl (14.0-18.0); Lymphocytes Absolute Auto 1.7 X10*3/uL (1.2-4.9); Lymphocytes Percent Auto 35.4 % (20-40); Mean Corpuscular HGB Conc 33.5 g/dl (31.0-36.0); Mean Corpuscular Hemoglobin 28.8 pg (27.0-33.0); Mean Corpuscular Volume 85.9 fL (80.0-98.0); Mean Platelet Volume 10.5 fL (9.4-12.4); Monocytes Absolute Auto 0.5 X10*3/uL (0.1-1.2); Monocytes Percent Auto 10.5 % (2-11); Neutrophils Absolute Auto 2.2 x10*3/uL (2.0-8.3); Neutrophils Percent Auto 45.5 % (45-73); Platelet Count 128 X10*3/uL (160-400); Red Blood Count 5.69 X10*6/uL (4.60-5.80); Red Cell Distribution Width 13.2 % (11.0-16.0); White Blood Count 4.8 X10*3/uL (4.8-10.8)
[2023-09-26 11:39] LABS: Alanine Aminotransferase 15 U/L (0-40); Albumin Level 4.7 g/dL (3.5-5.0); Alkaline Phosphatase 79 U/L (39-117); Anion Gap 12 (12-20); Aspartate Amino Transferase 23 U/L (5-37); Bilirubin Total 0.9 mg/dL (0.0-1.0); Blood Urea Nitrogen 14 mg/dL (9-16); Calcium 9.9 mg/dL (8.4-10.2); Carbon Dioxide 26 mmol/L (22-29); Chloride 107 mmol/L (96-108); Cholesterol 142 mg/dL (<200); Estimated Glomerular Filt Rate > 60; Glucose Random 79 mg/dL (60-115); HDL Cholesterol 54 mg/dL (>40); LDL Cholesterol Calculated 77 mg/dL (<100); Potassium 4.2 mmol/L (3.3-5.1); Sodium 141 mmol/L (135-145); Total Protein 7.7 g/dL (6.5-8.0); Triglycerides 57 mg/dL (<150)
[2023-09-26 11:59] LABS: Free T4 (Free Thyroxine) 0.99 ng/dL (0.71-1.85); Vitamin D 25-OH Total 21.8 ng/mL (>30)
[2023-09-26 12:01] LABS: Folate 10.9 ng/mL (> or = 4.0); Vitamin B12 432 pg/mL (200-900)
== END 2023-09-26 09:50 | disposition home or self-care (01) ==
LOC: HO.LAB 09:49
PROVIDERS: PCP Internal Medicine; Visit Provider Internal Medicine
DX: K22.10 Ulcer of esophagus without bleeding (principal); E78.00 Pure hypercholesterolemia, unspecified
CPT/HCPCS: 36415; 80053; 80061; 82306; 82607; 82746; 84439; 84443; 85025

== ENCOUNTER 2023-12-28 11:32 | Day surgery (SDC) | payer OTHER, SELFPAY ==
--- NOTE | 2023-12-27 11:40 | P.CONAN_ITS ---
Documented by User: Dia Vasquez NP 12/27/23 11:41 HPI - Anesthesia Eval Consult details Narrative: 23yo M for Upper Endoscopy with Dilitation PMFSH Active Problems Active Problems: All Active Problems Ear abrasion (Acute) Dysphagia (Acute) Cough (Acute) GERD (gastroesophageal reflux disease) (Acute) Impacted cerumen of both ears (Acute) Generalized anxiety disorder (Acute) Allergic reaction (Acute) URI (upper respiratory infection) (Acute) Low vitamin D level (Acute) Anxiety (Acute) Acne (Acute) Duodenal ulcer (Acute) Status post dilation of esophageal narrowing (Acute) Esophageal ulcer (Acute) Acne (Acute) Annual physical exam (Acute) Transposition of the great arteries (Acute) Past Medical History Medical History (Updated 09/26/23 @ 09:24 by Fredrick Haney MD) Esophagitis Chest pain Dysphagia Odynophagia GERD (gastroesophageal reflux disease) Generalized anxiety disorder Irritable bowel syndrome Asthma Family History Family History Other Stomach cancer Family history of problems with anesthesia: No Surgical History Surgical History (Updated 12/28/23 @ 11:58 by Lore Terry RN) Hx of endoscopy Transposition of the great arteries History of Problems with Anesthesia: No Social History Social History Household Members: Family Housing: Other Are you a primary direct care professional to a significant other at home: No Do you presently have visiting nurse or other home services: No Alcohol intake: current Alcohol intake frequency: does not drink Patient Tobacco Use Status: Never used Tobacco e-Cigarette/Vaping Use: Never Used Second Hand Smoke Exposure: No Use of substances other than those prescribed or required for medical reasons: No Have you been hit, kicked, punched, or otherwise hurt by someone within the past year? If so, by whom?: No Are you DNR?: No Advance Directives: No Advance Directives Information Provided: Yes Advance Directives Date on File: 02/27/22 Recently lost weight without trying: No How much weight loss: Not applicable Eating poorly because of decreased appetite: No Nutrition screen score: 0 Nutrition Risks: No Nutritional Risk Poor oral hygiene: No service: No Current occupational status: employed Cognitive needs: No Hearing needs: No Vision needs: No Meds Allergies Allergy/AdvReac Type Severity Reaction Status Date / Time pistachio nut Allergy Severe Anaphylaxis Verified 12/28/23 12:09 Exam Narrative Narrative: ECHO 2022 Conclusions: - Normal left ventricular size, thickness, systolic function, and wall motion. The visually estimated ejection fraction is between 55-60%. Diastolic function is normal for age. - Normal right ventricular cavity size and systolic function. - The left atrium is likely dilated. The right atrium is normal in size. - There is mild dilatation of the sinuses of Valsalva measuring 3.60 cm. - Cannot rule out bicuspid aortic valve. Assessment and Plan Assessment Anesthesia Assessment: Chart Reviewed Final Anesthetic Review Family History of Problems with Anesthesia: No History of Problems with Anesthesia: No Documented by User: Stephenie Marti MD 12/28/23 12:36 [facility] Past Medical History Medical History (Updated 09/26/23 @ 09:24 by Fredrick Haney MD) Esophagitis Chest pain Dysphagia Odynophagia GERD (gastroesophageal reflux disease) Generalized anxiety disorder Irritable bowel syndrome Asthma Family History Family History Other Stomach cancer Surgical History Surgical History (Updated 12/28/23 @ 11:58 by Lore Terry RN) Hx of endoscopy Transposition of the great arteries Social History Social History Household Members: Family Housing: Other Are you a primary direct care professional to a significant other at home: No Do you presently have visiting nurse or other home services: No Alcohol intake: current Alcohol intake frequency: does not drink Patient Tobacco Use Status: Never used Tobacco e-Cigarette/Vaping Use: Never Used Second Hand Smoke Exposure: No Use of substances other than those prescribed or required for medical reasons: No Have you been hit, kicked, punched, or otherwise hurt by someone within the past year? If so, by whom?: No Are you DNR?: No Advance Directives: No Advance Directives Information Provided: Yes Advance Directives Date on File: 02/27/22 Recently lost weight without trying: No How much weight loss: Not applicable Eating poorly because of decreased appetite: No Nutrition screen score: 0 Nutrition Risks: No Nutritional Risk Poor oral hygiene: No service: No Current occupational status: employed Cognitive needs: No Hearing needs: No Vision needs: No Meds Allergies Allergy/AdvReac Type Severity Reaction Status Date / Time pistachio nut Allergy Severe Anaphylaxis Verified 12/28/23 12:09 Exam Airway Mallampati Class: II TM Dist: >3cm Neck ROM: Full Heart: rrr Lungs: cta Assessment and Plan Assessment Anesthesia Assessment: Anesthesia Plan Discussed Final Anesthetic Review NPO: Yes ASA Class: II Final Preanesthetic Review: No Changes in Pt Med Stat, Meds/Allgs Chart Reviewed and Consent Obtained/Reviewed Patient Risk: Low Procedure Risk: Intermediate Anesthetic Plan Anesthetic Plan: MAC: Disposition: Standard PACU
--- OUTSIDE RECORDS SUMMARY | 2023-12-28 11:33 | XMS_ITS | Continuity of Care Document ---
Author Organization [facility] Address [address] [place] [address]- Care Team Providers Care Bill Of Materials Clerk Name Role Phone Not on Staff, PCP Primary Care Physician Unavail able Encounter [facility] Date(s): 03/04/21 - 04/03/21 [facility] [address] [place] [address]- Attending Physician: Radha Mcfadden Admitting Physician: Radha Mcfadden Referring Physician: Radha Mcfadden Allergies, Adverse Reactions, Alerts Substance Reaction Severity Status NKA Active Problem List Condition Effective Dates Status Health Status Inform ant TGA - Operation for transpos ition of great arteries(Confirmed) Active Social History Social History Type Response Smoking Status Current every day sm oker; Tobacco user in household: Yes; Other: Mom smokes; entered on: 05/29/16 Sex
--- OUTSIDE RECORDS SUMMARY | 2023-12-28 11:33 | XMS_ITS | Continuity of Care Document ---
Author Organization [facility] Address [address] [place] [address]- Care Team Providers Care Library Services Coordinator Name Role Phone Not on Staff, PCP Primary Care Physician Unavail able Encounter [facility] Date(s): 05/14/20 - 06/13/20 [facility] [address] [place] [id number]- Allergies, Adverse Reactions, Alerts Substance Reaction Severity Status NKA Active Problem List Condition Effective Dates Status Health Status Inform ant TGA - Operation for transpos ition of great arteries(Confirmed) Active Social History Social History Type Response Smoking Status Current every day sm oker; Tobacco user in household: Yes; Other: Mom smokes; entered on: 05/29/16 Sex
--- OUTSIDE RECORDS SUMMARY | 2023-12-28 11:33 | XMS_ITS | Continuity of Care Document ---
Author Organization [facility] Address [address] [place] [address]- Care Team Providers Care Cmm Technician Name Role Phone Po Fredrick ECHEVERRIA Primary Care Physician [phone] Encounter [facility] Date(s): 04/12/21 - 05/12/21 [facility] [address] [place] [address]- Attending Physician: Radha Mcfadden Admitting Physician: Radha Mcfadden Referring Physician: Radha Mcfadden Allergies, Adverse Reactions, Alerts No Known Allergies Problem List Condition Effective Dates Status Health Status Inform ant TGA - Operation for transpos ition of great arteries(Confirmed) Active Social History Social History Type Response Smoking Status Current every day sm oker; Tobacco user in household: Yes; Other: Mom smokes; entered on: 05/29/16 Sex
--- OUTSIDE RECORDS SUMMARY | 2023-12-28 11:33 | XMS_ITS | Continuity of Care Document ---
Author Organization [facility] Address [address] [place] [phone]- Care Team Providers Care Chief Controller Station Name Role Phone Fredrick Haney MD Primary Care Physician Encounter [facility] Date(s): 04/26/23 - 05/26/23 [facility] [address] [place] [id number]- Allergies, Adverse Reactions, Alerts No Known Allergies Problem List Condition Confirmation Course Effective Dates Status H ealth Status Informant TGA - Operation for transposition of great arteries Confirmed Active Social History Social History Type Response Smoking Status Current every day sm oker; Tobacco user in household: Yes; Other: Mom smokes; entered on: 05/29/16 Sex Patient Care team information Care Team Personnel Name: Fredrick Haney MD Position: Reference Physician Member Role: PCP Address: Address: [address] [place] [id number]- Care Team Related Persons Name: LASHON HOLGUIN Address: [place] [address] Name: MARLO MIRELES Address: home [address] [place] [address] Name: SEDRICK SERRA Address: home [address] [place] [address]
--- OUTSIDE RECORDS SUMMARY | 2023-12-28 11:33 | XMS_ITS | Continuity of Care Document ---
Author Organization [facility] Address [address] [place] [address]- Care Team Providers Care It Desktop Support Specialist Name Role Phone Fredrick Haney MD Primary Care Physician [phone] Encounter [facility] [place] Date(s): 09/21/22 - 10/21/22 [facility] [address] [place] [address]- Allergies, Adverse Reactions, Alerts No Known Allergies [...] Reference Physician Member Role: PCP Address: Address: [address] [place] [address]- Care Team Related Persons Name: LASHON HOLGUIN Address: [place] [address] Name: MARLO MIRELES Address: home [address] [place] [address] Name: SEDRICK SERRA Address: home [address] [place] [address]
--- OUTSIDE RECORDS SUMMARY | 2023-12-28 11:33 | XMS_ITS | Continuity of Care Document ---
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
--- OUTSIDE RECORDS SUMMARY | 2023-12-28 11:33 | XMS_ITS | Continuity of Care Document ---
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
--- OUTSIDE RECORDS SUMMARY | 2023-12-28 11:33 | XMS_ITS | Continuity of Care Document ---
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
--- OUTSIDE RECORDS SUMMARY | 2023-12-28 11:33 | XMS_ITS | Continuity of Care Document ---
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
--- OUTSIDE RECORDS SUMMARY | 2023-12-28 11:33 | XMS_ITS | Continuity of Care Document ---
Author Organization [facility] Address [address] [place] [address]- Care Team Providers Care Machine Mover Name Role Phone Fredrick Haney MD Primary Care Physician [place] [facility] [place] 08/28/23 - 09/27/23 [facility] [address] [place], [place] [id number]- Attending Physician: Radha Mcfadden Admitting Physician: Radha Mcfadden Referring Physician: Radha Mcfadden Allergies, Adverse Reactions, Alerts Substance Reaction Severity Status Nuts 1 Anaphylactic shock due to serum Active 1pistachio Medications Carafate 1 gm/10 ml oral suspension 10 mL = 1 Gm, By Mouth, 3 times a day before meals and bedtime, # 1,200 mL, 0 Refills, Maintenance,06/26/23 20:59:00 EST, [facility]/pharmacy #[id number], Partial fill upon patient request if the prescription isfor a schedule II opioid drug., 188, cm, 06/26/23 1... Start Date: 06/26/23 Status: Ordered Problem List Condition Confirmation Course Effective Dates Status H ealth Status Informant TGA - Operation for transposition of great arteries Confirmed Active Social History Social History Type Response Smoking Status Never (less than 100 in lifetime) entered on: 06/26/23 Sex Patient Care team information Care Team Personnel Name: Fredrick Haney MD Position: Reference Physician Member Role: PCP Address: Address: [address] [place] [address]- Care Team Related Persons Name: BRISEYDA HOLGUINNN Address: [place] [address] Name: MARLO MIRELES Address: home [address] [place] [address] Name: SEDRICK SERRA Address: home [address] [place] [address]
--- OUTSIDE RECORDS SUMMARY | 2023-12-28 11:33 | XMS_ITS | Continuity of Care Document ---
Author Organization [facility] Address [address] [place] [address]- Care Team Providers Care Selector Packer Name Role Phone Fredrick Haney MD Primary Care Physician [phone] Encounter [facility] [place] Date(s): 10/03/22 - 11/02/22 [facility] [address] [place] [address]- Allergies, Adverse Reactions, Alerts No Known Allergies [...] Reference Physician Member Role: PCP Address: Address: [address] [place] [address]- Care Team Related Persons Name: LASHON HOLGUIN Address: [place] [address] Name: MARLO MIRLEES Address: home [address] [place] [address] Name: SEDRICK SERRA Address: home [address] [place] [address]
--- OUTSIDE RECORDS SUMMARY | 2023-12-28 11:33 | XMS_ITS | Continuity of Care Document ---
Author Organization [facility] Cardiology Address [address] [place] [address]- Care Team Providers Care Sales Office Assistant Name Role Phone Fredrick Haney MD Primary Care Physician Encounter [facility] [place] Date(s): 08/25/22 - 09/24/22 [facility] [address] [place] [address]- Allergies, Adverse Reactions, Alerts No Known Allergies [...] Reference Physician Member Role: PCP Address: Address: [address] [place] [address]- Care Team Related Persons Name: LASHON HOLGUIN Address: [place] [address] Name: MARLO MIRELES Address: home [address] [place] [address] Name: SEDRICK SERRA Address: home [address] [place] [address]
--- OUTSIDE RECORDS SUMMARY | 2023-12-28 11:33 | XMS_ITS | Continuity of Care Document ---
Author Organization [facility] Address [address] [place] [address]- Care Team Providers Care Label Pinker Name Role Phone Fredrick Haney MD Primary Care Physician Encounter [facility] Date(s): 03/16/23 - 04/15/23 [facility] [address] [place] [address] Allergies, Adverse Reactions, Alerts No Known Allergies [...] Reference Physician Member Role: PCP Address: Address: [address] [place] [address] Care Team Related Persons Name: LASHON HOLGUIN Address: [place] [address] Name: MARLO MIRELES Address: home [address] [place] [address] Name: SEDRICK SERRA Address: home [address] [place] [address]
--- OUTSIDE RECORDS SUMMARY | 2023-12-28 11:33 | XMS_ITS | Continuity of Care Document ---
Author Organization [facility] Address [address] [place] [address]- Care Team Providers Care Hot Knife Cutter Name Role Phone Po Fredrick ECHEVERRIA Primary Care Physician [phone] Encounter [facility] [place] Date(s): 06/26/23 - 06/26/[address] [address]- Encounter Diagnosis Chest pain(Final) - 06/26/23 Gastritis(Final) - 06/26/23 Discharge Disposition: A-D/C Home Attending Physician: Padmini Lyn MD Admitting Physician: Padmini Lyn MD Referring Physician: Not on Staff, Referring MD Allergies, Adverse Reactions, Alerts Substance Reaction Severity Status Nuts 1 Anaphylactic shock due to serum Active 1pistachio Medications Carafate 1 gm/10 ml oral suspension 10 mL = 1 Gm, By Mouth, 3 times a day before meals and bedtime, # 1,200 mL, 0 Refills, Maintenance,06/26/23 20:59:00 EST, [facility]/pharmacy #[id number], Partial fill upon patient request if the prescription isfor a schedule II opioid drug., 188, cm, 06/26/23 1... Start Date: 06/26/23 Status: Ordered Problem List Condition Confirmation Course Effective Dates Status H ealth Status Informant TGA - Operation for transposition of great arteries Confirmed Active Results Radiology Reports * Exam Date Time Procedure Performing Provider Status 06/26/23 7:26 PM Chest 2 Views Frontal and Lat Michael Serna; Johanne (Verified) Notes: (Chest 2 Views Frontal and Lat) Reason For Exam: Angina RESULT: Chest 2 Views Frontal and Lat Chest 2 Views Frontal and Lat Hx of Present Illness: CP and abd pain after eating pretzels this morning. Hx of ulcers. Denies CP,reports abd pain still present. Denies n V; Reason: Angina; Clinical Question(s): CHF COMPARISON: None. FINDINGS: LINES AND TUBES: None. LUNGS AND PLEURA: Clear lungs. Normal pulmonary vascularity. No pleural effusion. No pneumothorax. HEART, MEDIASTINUM AND FAYE: Heart is normal in size. Normal mediastinal and hilar contour. BONES AND SOFT TISSUES: Status post median sternotomy. No acute abnormality. IMPRESSION: No acute abnormality. WSN: [id number] Ordering Physician: Rachael Lopez Dictated By: Juvencio Mooney MD Dictated Date/Time: 06/26/23 7:28 pm Reviewed By: Juvencio Mooney MD Signed By: Juvencio Mooney MD Signed Date/Time: 06/26/23 7:28 pm Transcribed By: LEBRON Transcribed Date/Time: 06/26/23 7:28 pm Vital Signs Most recent to oldest [Reference Range]: 1 2 Height 188 cm (06/26/23 3:45 PM) 188 cm (06/26/23 1:26 PM) Weight 66 kg (06/26/23 3:45 PM) Oxygen Saturation [94-100 %] 100 % (06/26/23 7:30 PM) 100 % (06/26/23 1:26 PM) Pulse Rate [55-90 bpm] 74 bpm (06/26/23 7:30 PM) 97 bpm *H* (06/26/23 1:26 PM) Blood Pressure [90-138/55-84 mm Hg] 137/ 73mm Hg (06/26/23 7:30 PM) 142/87mm Hg *H* (06/26/23 1:26 PM) Respiratory Rate [16-30 br/min] 18 br/mi n (06/26/23 7:30 PM) 16 br/min (06/26/23 1:26 PM) Temperature [96.8-100.4 DegF] 98.5 DegF (06/26/23 7:30 PM) 98.8 DegF (06/26/23 1:26 PM) Mode of Delivery (Oxygen) Room air (06/26/23 7:30 PM) Room air (06/26/23 1:26 PM) Blood pressure sites Arm, right (06/26/23 1:26 PM) Temperature Route Oral (06/26/23 7:30 PM) Oral (06/26/23 1:26 PM) Dry Weight 66 kg (06/26/23 3:45 PM) 63.5 kg (06/26/23 1:26 PM) Dry Weight Obtained Via Patient/family s tated (06/26/23 3:45 PM) Patient/family stated (06/26/23 1:26 PM) Social History Social History Type Response Smoking Status Never (less than 100 in lifetime) entered on: 06/26/23 Sex EKG study * Event Display: ECG 12-Lead Authored Date: [id number] Please click on pdf link to open report * Event Display: ECG 12-Lead Authored Date: [id number] Ventricular Rate: 93 BPM Atrial Rate: 93 BPM P-R Interval: 152 ms QRS Duration: 116 ms Q-T Interval: 360 ms QTC Calculation(Bazett): 447 ms P [place]: 70 degrees R [place]: 71 degrees T [place]: 63 degrees Normal sinus rhythm Normal ECG When compared with ECG of 10-JUN-2020 11:17, No significant change was found Confirmed by GARCÍA URBAN MD ([id number]) on 06/26/2023 2:39:25 PM Enterprise: GARCÍA URBAN MD Note * Rachael Herrmann: PERFORM Event Display: Patient Education Leaflets Authored Date: [id number] Gastritis (Adult) ?? [id number] Gastritis (Adult) Gastritis is??inflammation and??irritation of the stomach lining. You can have it for a short time (acute) or it can be long lasting (chronic). Infection with bacteria called??H. pylori most often causes gastritis.??More than 1 out of 3 people in the [place] have these bacteria in their bodies. In many cases,??H. pylori??causes no problems or symptoms. But in some people, the infection irritates thestomach lining and causes gastritis. H. pylori may be diagnosed through blood, stool, or breath tests, or by a biopsy during an endoscopy. Other causes of stomach irritation include drinking alcohol,smoking or chewing tobacco, or taking pain-relieving medicines called nonsteroidal anti-inflammatory drugs (NSAIDs), such as aspirin or ibuprofen. Some illegal drugs (such as cocaine) and immune conditions can also cause gastritis. Symptoms of gastritis can include: ??? Belly pain or bloating ??? Feeling full quickly ??? Loss of appetite ??? Weight loss ??? Nauseaor vomiting ??? Vomiting blood or having black stools ??? Feeling more tired than normal An inflamed and irritated stomach lining is more likely to develop a sore called an ulcer. To help prevent this, gastritis should be evaluated and treated as soon as symptoms occur. Home care If needed, your healthcare provider may prescribe medicines. If you have??H. pylori??infection, treating it will likely ease your symptoms. Other changes can help reduce stomach irritation and help it heal. ??? Take prescription medicines as directed. If you have been prescribed medicines for??H. pylori??infection, take them as directed. Take all of the medicine until it's finished or until your provider tells you to stop taking it, even if you start to feel better. ??? Follow your healthcare provider's advice on NSAIDs. Your provider may advise you not to take NSAIDs such as ibuprofen. If you take daily aspirin for your heart or other health reasons, don't stop without talking with your provider first. ??? Don't drink alcohol. If you need help stopping your use of alcohol, ask your provider for treatment resources. ??? Stop smoking. Smoking can irritate the stomach and delay healing. As much as possible, stay away from secondhand smoke. If you smoke and have trouble stopping, ask your provider for help. ?? Follow-up care Follow up with your healthcare provider, or as advised. You may need testing to check for inflammation or an ulcer. ?? When to get medical advice Call your healthcare provider if any of the following occur: ??? Stomach pain that gets worse or moves to the lower right belly (appendix area) ??? Chest pain that suddenly appears or gets worse, or spreads to the back, neck, shoulder, or arm ??? Frequent vomiting (can???t keep down liquids) ??? Blood in the stool or vomit (red or black in color) ??? Feeling weak or dizzy ??? Shortness of breath ??? Unexplained weight loss ??? Fever of 100.4??F (38??C) or higher, or as directed by your healthcare provider ??? Symptoms that get worse, or new symptoms ?? Last Reviewed Date: 2022 ?? [employer]. All rights reserved. This information is not intended as a substitute for professional medical care. Always follow your healthcare professional's instructions. ?? * Rachael Herrmann: PERFORM Event Display: Patient Education Leaflets Authored Date: [id number] Uncertain Causes of Chest Pain ?? [id number] Uncertain Causes of Chest Pain Chest pain can happen for a number of reasons. Sometimes the cause can't be determined. If your??condition does not seem serious, and your pain does not appear to be coming from your heart, your healthcare provider may recommend watching it closely. Sometimes the signs of a serious problem take more time to appear. Many problems not related to your heart can cause chest pain. These include: ??? Musculoskeletal. Costochondritis is an inflammation of the tissues around the ribs that can occur from trauma or overuse injuries, or a strain of the muscles of the chest wall. ??? Respiratory. Pneumonia, collapsed lung (pneumothorax), or inflammation of the lining of the chest and lungs (pleurisy). ??? Gastrointestinal. Esophageal reflux, heartburn, ulcers, or gallbladder disease. ??? Anxiety and panic disorders ??? Nerve compression and inflammation ??? Rare problems such as aortic aneurysm or aortic dissection (a swelling of the large artery coming out of the heart or a tear in the wall of the artery), or pulmonary embolism (a blood clot in the lungs). Home care After your visit, follow these recommendations: ??? Rest today and avoid strenuous activity. ??? Take any prescribed medicine as directed. ??? Be aware of any recurrent chest pain and notice any changes ?? Follow-up care Follow up with your healthcare provider if you don't start to feel better within 24 hours, or as advised. ?? Call 911 Call 911 if any of these occur: ??? A change in the type of pain: if it feels different, becomes more severe, lasts longer, or begins to spread into your shoulder, arm, neck, jaw or back ??? Shortness of breath or increased pain with breathing ??? Weakness, dizziness, or fainting ??? Rapid heartbeat ??? Crushing sensation in your chest ??? Coughing up more than a small amount of blood. ?? When to seek medical advice Call your healthcare provider right away if any of the following occur: ??? Cough with dark coloredsputum (phlegm) or small amount of blood ??? Fever of 100.4??F??(38??C) or higher, or as directed by your healthcare provider ??? Swelling, pain or redness in one leg ?? Last Reviewed Date: 2021 ?? [id number] [employer]. All rights reserved. This information is not intended as a substitute for professional medical care. Always follow your healthcare professional's instructions. ?? Patient Care team information Care Team Personnel Name: Fredrick Haney MD Position: Reference Physician Member Role: PCP Address: Address: [address] [place] [address]- Care Team Related Persons Name: LASHON HOLGUIN Address: [place] [address] Name: MARLO MIRELES Address: home [address] [place] [address] Name: SEDRICK SERRA Address: home [address] [place] [address]
--- OUTSIDE RECORDS SUMMARY | 2023-12-28 11:33 | XMS_ITS | Continuity of Care Document ---
Author Organization [facility] ar[facility] Address [address] [place] [address]- Care Team Providers Care Petroleum Refining Equipment Operator Name Role Phone Not on Staff, PCP Primary Care Physician Unavail able [facility]counter [facility] Date(s): 06/10/20 - 07/10/20 [facility] [address] [place] [address]- Attending Physician: Radha Mcfadden Admitting Physician: Radha [...]
--- NOTE | 2023-12-28 11:58 | P.HPSUR_ITS ---
Pre-Procedural Eval Section A - 24 Hr Update-Section A only Date of Service: 12/28/23 The patient is an INPATIENT: No The patient has been examined within 24 hours of the surgical procedure. The History & Physical has been completed within 30 days and I have reviewed it.: No Section B - Complete if H&P > 30 days Chief Complaint: Dysphagia Relevant Family History (Specify if Yes): Yes Relevant Social History: None Present Medications: see Short Stay Collaborative assessment Medical History: Significant History (Dysphagia GERD (gastroesophageal reflux d isease) Esophagitis Chest pain Odynophagia Generalized anxiety disorder Irritable bowel syndrome Asthma) History of Previous Operations: Relevant previous surgery/procedure and date(s) (Transposition of the great arteries) Allergies: Allergies Allergy/AdvReac Type Severity Reaction Status Date / Time pistachio nut Allergy Anaphylaxis Verified 09/26/23 08:46 Review of Systems Sugical H&P ROS: Negative: Constitution, Cardiovascular and Respiratory and Yes, Specify: Gastrointestinal (heartburn and dysphagia) Exam Surgical H&P Exam: Normal: Heart, Normal: Lungs, Normal: Extremities and Normal: Abdomen Plan Diagnosis/Plan: Unchanged I have reviewed the history and physical and performed a pertinent physical examination on my patient. No changes have occurred unless specified. Time Spent With Patient Time: Total time managing care of this patient today ____ minutes.
[2023-12-28 12:10] VITALS: BP 143/86; PULSE 79; RESP 16; TEMP 37.3; O2SAT 99; BMI 19.2
[2023-12-28] MEDS: Lactated Ringers 1,000 ML 100 ML IVCONT (12:46)
--- NOTE | 2023-12-28 13:07 | W.PM.OPN ---
Operative Note Operative Note Date of Service: 12/28/23 Narrative: FLEXIBLE TRANSORAL UPPER GASTROINTESTINAL ENDOSCOPY WITH BIOPSIES AND ESOPHAGEAL BALLOON DILATION Pre-op diagnosis: [GERD], [Epigastric pain], [Dysphagia] Post-op diagnosis: GERD, Gastritis, Endoscopist:? Noni Paredes MD Anesthesia:?MAC UPPER ENDOSCOPY Consent: Indications for the procedure and potential complications of bleeding, perforation, reaction to medications and missed diagnosis were discussed with the patient and informed consent was obtained. Instrument: Olympus GIF H 190 mid size upper endoscope Monitoring: Vital signs and clinical assessment, continuous EKG monitoring, Pulse oximetry, Carbon Dioxide monitoring and blood pressure monitoring were done throughout the procedure. Procedure: The patient was placed in the left lateral decubitis position and pre-procedure medications were administered and a bite block was placed. The endoscope was inserted into the mouth and advanced under direct vision to the third part of duodenum. A careful inspection was made as the upper endoscope was withdrawn including a retroflexed examination of the proximal stomach; Findings and interventions are described below. Findings: Larynx: Normal Esophagus: GE junction at 40 cms. Mild resistance on passage of a midsize endoscope through the GEJ. Esophageal balloon dilation was performed with a 14 mm CRE balloon x 60 seconds. Biopsies were obtained from proximal, middle and distal esophagus to check for EOE Stomach: Mild gastric erythema. Biopsies were obtained. Grade 2 flap valve on retroflexed examination of the cardia. Duodenum: A few 5 - 10 mm ulcers in the bulb and normal descending duodenum. Biopsies were obtained from 3rd part of the duodenum to check for celiac sprue. Impression and Post Procedure Diagnosis: Endoscopy Findings: ESOPHAGUS: GE junction at 35 cms. Mildly tortuous esophagus STOMACH: Nodular appearing mucosa in the gastric body and fundus - biopsied. Moderate diffuse gastric erythema - biopsies were obtained from the antrum. Plan: I will contact the patient with biopsy results. Pt has a FU appointment on 03/24/24 with YEFRI Casiano Repeat EGD with dilation in 3-4 months if biopsies confirm a diagnosis of EOE Above findings were reviewed with the patient and relevant handouts were given and the discharge area. Specimens and Sources: : A- Small bowel BX r/o celiac disease ?B- Gastric antrum BX for H. Pylori ?C- Distal esophagus BX r/o EOE ?D- Mid esophagus BX r/o EOE ?E- Proximal esophagus BX r/o EOE ? Pre-operative diagnosis: : Dysphagia ? Post-operative Diagnosis: : Duodenal ulcers, gastritis, dysphagia
[2023-12-28 13:08] VITALS: BP 91/40; PULSE 73; RESP 16; TEMP 36.9; O2SAT 94
[2023-12-28 13:23] VITALS: BP 96/44; PULSE 59; RESP 18; O2SAT 96
[2023-12-28 13:38] VITALS: BP 97/50; PULSE 70; RESP 18; O2SAT 97
== END 2023-12-28 14:10 | disposition home or self-care (01) ==
PROVIDERS: PCP Internal Medicine; Visit Provider Internal Medicine Gastroenterology
PROC: (CPT 43249; principal; 2023-12-28 12:50)
DX: R13.10 Dysphagia, unspecified (principal); K21.9 Gastro-esophageal reflux disease without esophagitis; K26.9 Duodenal ulcer, unspecified as acute or chronic, without hemorrhage or perforation; K22.0 Achalasia of cardia; K29.50 Unspecified chronic gastritis without bleeding
CPT/HCPCS: 43249; 43239; 88305; 88313; 88342; C1726; J2250; J2704

== ENCOUNTER 2024-02-20 12:38 | Outpatient (AMB) | payer OTHER, SELFPAY ==
[2024-02-20 12:43] VITALS: BP 120/68; PULSE 78; O2SAT 99; BMI 19.3
--- NOTE | 2024-02-20 12:43 | A.OFFPC_ITS ---
Vital Signs 02/20/24 12:43 Height 6 ft 2 in Weight 150 lb BMI 19.3 BP 120/68 Blood Pressure Location Lt brachial Position Sitting Pulse 78 Pulse Source Pulse Oximeter Pulse Oximetry (%) 99 Oxygen Delivery Method Room Air Intake Visit Reasons: PE Allergies pistachio nut Allergy (Severe, Verified 12/28/23 12:09) Anaphylaxis Medication List - Last Reconciled 02/20/24 by Fredrick Haney MD hydroxyzine HCl 10 mg PO BID PRN omeprazole 40 mg (2 x 20 mg) PO DAILY 30 days Tobacco use date assessed: 09/26/23 Dental Screening Dental Screen Date: 07/10/23 HPI PE HPI Details 23-year-old male with a history of trans position of the great arteries GERD generalized anxiety disorder dysphagia last seen in 09/17/2023. Patient had EGD done 2022 showing eosinophilic esophagitis. Review of the notes has seen Cardiology advised 2 week ekg monitor echocardiogram to evaluate ventricular size and function valve function. Advised cardiac MRI in 3 years. bilateral then noted red swelling [facility] Medical History (Updated 02/20/24 @ 13:16 by Fredrick Haney MD) Esophagitis Chest pain Dysphagia Odynophagia GERD (gastroesophageal reflux disease) Generalized anxiety disorder Irritable bowel syndrome Asthma Surgical History (Updated 12/28/23 @ 11:58 by Lore Terry RN) Hx of endoscopy Transposition of the great arteries Family History Other Stomach cancer Social History (Updated 02/20/24 @ 13:08 by Fredrick Haney MD) Household Members: Family Housing: Other Are you a primary skin care specialist to a significant other at home: No Do you presently have visiting nurse or other home services: No Alcohol intake: never Patient Tobacco Use Status: Never used Tobacco Tobacco use type: Cigarette e-Cigarette/Vaping Use: Never Used Second Hand Smoke Exposure: No Advance Directives Date on File: 02/27/22 service: No Current occupational status: employed Cognitive needs: No Hearing needs: No Vision needs: No Questionnaire PHQ-9 Over the last 2 weeks, how often have you been bothered by any of the following problems? 1. Little interest or pleasure in doing things: several days 2. Feeling down, depressed, or hopeless: several days 3. Trouble falling or staying asleep, or sleeping too much: several days 4. Feeling tired or having little energy: several days 5. Poor appetite or overeating: not at all 6. Feeling bad about yourself - or that you are a failure or have let yourself or your family down: not at all 7. Trouble concentrating on things, such as reading the newspaper or watching television: several days 8. Moving or speaking so slowly that other people could have noticed. Or the opposite - being so fidgety or restless that you have been moving around a lot more than usual: not at all 9. Thoughts that you would be better off or of hurting yourself in some way: not at all Total score: 5 Source: Developed by Drs. Dominic Ryan, Karena Arellano, Chris Taylor and colleagues, with an educational petra from [employer]. Thrive Questionnaire Date Thrive assessed: 07/10/23 I am a: Patient What is your living situation today?: I choose not to answer this question Within the past 12 months, did the food you bought not last and you didn't have the money to get more?: Sometimes True Within the past 12 months, did you worry whether your food would run out before you got money to buy more?: Sometimes True Do you have trouble paying for medicines?: I choose not to answer this question Do you have trouble getting transportation to medical appointments?: I choose not to answer this question Do you have trouble paying your heating and electricity bill?: I choose not to answer this question Do you have trouble taking care of your child, family member or friend?: I choose not to answer this question Do you have trouble with day-to-day activities such as bathing, preparing meals, shopping, managing finances, etc.?: I choose not to answer this question Are you currently unemployed and looking for a job?: No Are you interested in more education?: Yes Please select the resources that you would like help with: None Currently or been in a relationship where the following occur: No concerns reported THRIVE Score: 2 AUDIT C Alcohol Use Questionnaire (AUDIT-C) 1. How often do you have a drink containing alcohol?: Never Total Score: 0 JACKY-7 AMB Questionnaire JACKY-7 Date JACKY - 7 assessed: 07/10/23 Feeling nervous, anxious, or on edge: 1 = Several days Not being able to stop or control worryin = Several days Worrying too much about different things: 1 = Several days Trouble relaxin = Several days Being so restless that it is hard to sit still: 1 = Several days Becoming easily annoyed or irritable: 1 = Several days Feeling afraid as if something awful might happen: 1 = Several days Total JACKY-7 score (0-4 normal; 5-9 mild; 10-14 moderate; 15-21 severe): 7 Source: Developed by Drs. Dominic Ryan, Karena Arellano, Chris Taylor and colleagues, with an educational petra from [employer]. Review of Systems Const Denies poor appetite and Denies weakness Eyes Denies no additional complaints ENT Reports Normal hearing present, Denies dizziness, Denies nasal congestion, Denies tinnitus and Denies sore throat Card Denies chest pain, Denies syncope, Denies rapid heart rate and Denies dyspnea Resp Denies cough and Denies dyspnea GI Denies change in stool character, Reports constipation, Denies diarrhea, Denies nausea and Denies vomiting Denies dysuria and Denies urinary frequency Neuro Reports Normal hearing present, Denies confusion, Denies dizziness, Denies syncope and Denies weakness Psych Denies confusion Physical exam (Primary Care) Vital Signs: Last Vital Signs Pulse 78 02/20/24 12:43 BP 120/68 02/20/24 12:43 Pulse Ox 99 02/20/24 12:43 Oxygen Delivery Method Room Air 02/20/24 12:43 BMI result Body Mass Index 19.3 Tobacco/Smoking Status: Tobacco use Status Tobacco use date assessed 09/26/23 02/20/24 12:48 Patient Tobacco Use Status Never used Tobacco 02/20/24 12:48 Tobacco use type Cigarette 02/20/24 12:48 e-Cigarette/Vaping Use Never Used 02/20/24 12:48 PHQ-9: PHQ-9 Score PHQ-9: Total score 5 02/20/24 12:48 Thrive Assessment: Date of Thrive Assessment Date Thrive assessed 07/10/23 02/20/24 12:48 Currently or been in a relationship where the following occur: No concerns repor antoinette Const General: No confusion Orientation/consciousness: No confusion HENMT Head: Yes normocephalic Ears: external ears normal and TM's normal bilaterally Face and sinus: Yes normal facial exam Mouth: moist mucous membranes Throat: Yes tonsils normal Eyes Conjunctivae: conjunctivae normal Pupils: Equal, round and reactive pupils present and Pupil accommodation reflex normal Direct Ophthalmoscopy: normal light reflex Neck Neck: No lymphadenopathy Thyroid: Thyroid normal Chest Chest palpation & inspection: normal inspection of the chest Resp Effort & Inspection: normal respiratory effort and no audible wheezes Auscultation: clear to auscultation bilaterally, no crackles, no wheezes and lung sounds not diminished Cardio Rate: regular rate Rhythm: regular rhythm Peripheral pulses: radial pulses present and dorsalis pedis present GI Palpation (GI): no masses Auscultation: normal bowel sounds and normoactive bowel sounds Rectal Exam - Male: Yes deferred Skin General skin exam: no rashes or lesions noted Rashes: no rashes Neuro General: No confusion Cranial nerves: Yes Equal, round and reactive pupils present and Yes Normal hearing present Cognition (Neuro): normal cognition Gait exam (Neuro): Normal gait present Motor exam (neuro): 5/5 motor strength present throughout Deep tendon reflexes (DTR's): Right brachioradialis reflex intensity grade: 2+, Left brachioradialis reflex intensity grade: 2+, Right patellar reflex intensity grade: 2+ and Left patellar reflex intensity grade: 2+ Extrem General: No edema Office Procedures Flu Questionnaire Does the patient have a severe egg allergy?: No Does the patient have severe life threatening allergies?: No Does the patient have a fever or illness today?: No Has the patient ever had Guillain-[place] Syndrome?: No Has the patient ever had any past reaction to a flu shot?: No Immunizations Fluarix Triv [id number] (PF) 45 mcg (15 mcg x 3)/0.5 mL IM syringe Performing Provider: Fredrick Haney MD [facility] Administered by: Elyssa Decker CMA on 02/20/24 12:51 Dose Route Admin Location Dispensed Lot Number Expiration Date [facility] X Ray Developer 0.5 mL IM Left Deltoid 0.5 mL [id number] 10/27/24 [id number] [employer] VIS Given Date VIS Provided VIS Publication Date 02/20/24 Single Vaccine 20 Eligibility Eligibility Date Funding Source Not [facility] Eligible 02/20/24 Private Coding Level of Care Code Est Pt Prev Care 18-39y(23189) Diagnoses Annual physical exam Z00.00 Eosinophilic esophagitis K20.0 Transposition of the great arteries Q20.3 Generalized anxiety disorder F41.1 Skin infection L08.9 Low vitamin D level R79.89 Assessment & Plan Assessment & Plan (1) Annual physical exam: Code(s): Z00.00 - Encounter for general adult medical examination without abnormal findings Category: Medical Plan: Patient is advised to eat healthy, keep well hydrated, keep active and have adequate sleep. (2) Eosinophilic esophagitis: Comment: 11/2023 Dr. Lopez Code(s): K20.0 - Eosinophilic esophagitis Category: Medical Plan: Patient has had EGD done under gastroenterology placed on omeprazole (3) Transposition of the great arteries: Comment: Dr. Meadows echocardiogram August 2022Normal left ventricular size, thickness, systo lic function, and wall motion. The visually estimated ejection fraction is between 55-60%. Diastolic function is normal for age. - Normal right ventricular cavity size and systolic function. - The left atrium is likely dilated. The right atrium is normal in size. - There is mild dilatation of the sinuses of Valsalva measuring 3.60 cm. - Cannot rule out bicuspid aortic valve. 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 Category: Surgical Plan: Continue to follow-up with cardiology (4) Generalized anxiety disorder: Code(s): F41.1 - Generalized anxiety disorder Category: Medical Plan: Continue with hydroxyzine (5) Skin infection: Code(s): L08.9 - Local infection of the skin and subcutaneous tissue, unspecified Category: Medical Plan: antibiotic script sent (6) Low vitamin D level: Code(s): R79.89 - Other specified abnormal findings of blood chemistry Category: Medical Plan: vitamin d 1802-4590 u once a day Orders: Orders Influenza [id number] Immunization Today Z23 - Encounter for immunization Medications: New amoxicillin-pot clavulanate 400-57 mg/5 mL 10 mL PO BID 7 days 140 mL 0RF L08.9 - Local infection of the skin and subcutaneous tissue, unspecified Refilled omeprazole 40 mg (2 x 20 mg) PO DAILY 30 days 60 tabs 3RF K21.9 - Gastro- esophageal reflux disease without esophagitis
== END 2024-02-20 13:24 | disposition home or self-care (01) ==
PROVIDERS: PCP Internal Medicine; Visit Provider Internal Medicine
DX: Z00.00 Encounter for general adult medical examination without abnormal findings (principal); K20.0 Eosinophilic esophagitis; Q20.3 Discordant ventriculoarterial connection; F41.1 Generalized anxiety disorder; L08.9 Local infection of the skin and subcutaneous tissue, unspecified; R79.89 Other specified abnormal findings of blood chemistry; Z23 Encounter for immunization

== ENCOUNTER → 2024-02-20 12:38 | Outpatient (BNVA) | payer OTHER, SELFPAY | PROVIDERS: PCP Internal Medicine; Visit Provider Internal Medicine | DX: Z00.00 Encounter for general adult medical examination without abnormal findings (principal); K20.0 Eosinophilic esophagitis; F41.1 Generalized anxiety disorder; L08.9 Local infection of the skin and subcutaneous tissue, unspecified; E55.9 Vitamin D deficiency, unspecified; Q20.3 Discordant ventriculoarterial connection; Z79.899 Other long term (current) drug therapy; Z23 Encounter for immunization | CPT/HCPCS: 90471; 90656; 96127; 99395 ==

== ENCOUNTER 2024-03-20 13:26 | Outpatient (AMB) | payer SELFPAY ==
--- NOTE | 2024-03-20 13:27 | A.OFFVIS_ITS ---
Intake Visit Reasons: Post op/EGD Intake Note: Relevant Flags or Indicators ? Requires Corrective Therapy Aide Teacher? Kimberlee Mcdonough presents via telehealth for s/p EGD FUV. CC; Labs and Imaging performed within the last 6 mos . Relevant GI Sx as reported per pt? Reflux - chronic, no new developments. ? Hx of any recent surgeries? EGD Corrective Therapy Aide Teacher Required: No Allergies pistachio nut Allergy (Severe, Verified 01/30/25 09:30) Anaphylaxis Medication List - Last Reconciled 03/20/24 by Noni Lopez MD omeprazole 40 mg (2 x 20 mg) PO DAILY 90 days HPI HPI Post op/EGD: Details: GI clinic visit for this 23 YM for FU of dysphagia due to EOE TODAY'S VISIT: Doing Ok - still has acid reflux. Dysphagia has improved since EGD and dilation. Can have dysphagia a few times a month to solid food Patient denies symptoms of nausea, vomiting, change in appetite or weight. Denies recent change in bowel habits, constipation, diarrhea, black stools or rectal bleeding. Patient denies major cardiac or pulmonary problems, loud snoring or sleep apnea Denies problems with anesthesia in the past. Denies being on chronic anticoagulation. He gives a hx asthma in childhood and IBS with diarrhea alternating with constipation. He does not have any pertinent past medical history and is not on any prescription medications.? Mom has GERD and IBS and pt denies known FH of colon polyps or GI malignancy. LABS IN [facility] : Reviewed IMAGING STUDIES: 02/24/[address] SCAN SHOWED: 1.? No acute findings in the chest. Normal course of the esophagus. No esophageal wall thickening. No adjacent mass. 2.? Variant anatomy of the central vasculature. The main pulmonary artery is positioned anterior to the aorta. The right and left pulmonary arteries splay around the aorta, which varies from the typical positioning of the main pulmonary artery and its branches. There is likely prior pediatric intervention, with median sternotomy wires noted. ENDOSCOPIC STUDIES: 12/28/23 EGD SHOWED: Esophagus: GE junction at 40 cms. Mild resistance on passage of a midsize endoscope through the GEJ. Esophageal balloon dilation was performed with a 14 mm CRE balloon x 60 seconds. Biopsies were obtained from proximal, middle and distal esophagus to check for EOE Stomach: Mild gastric erythema. Biopsies were obtained. Grade 2 flap valve on retroflexed examination of the cardia. Duodenum: A few 5 - 10 mm ulcers in the bulb and normal descending duodenum. Biopsies were obtained from 3rd part of the duodenum to check for celiac sprue Plan: Repeat EGD with dilation in 3-4 months if biopsies confirm a diagnosis of EOE Above findings were reviewed with the patient and relevant handouts were given and the discharge area. BIOPSIES SHOWED: A. Small bowel, biopsy: Small intestinal mucosa within normal limits; negative for celiac disease. B. Stomach, antrum, biopsy: Antral-type mucosa with mild chronic inactive inflammation; no Helicobacter organisms seen. C. Esophagus, distal, biopsy: Squamous epithelium within normal limits; no inflammation seen. D. Esophagus, mid, biopsy: Active esophagitis (maximum eosinophil count 21 per high powered field). E. Esophagus, proximal, biopsy: Active esophagitis (maximum eosinophil count 27 per high powered field). Comment: The findings in the esophagus are consistent with eosinophilic esoph agitis in the proper clinical context. PAST GI HISTORY BY REVIEW OF MEDICAL RECORDS: 01/2022 PT WAS SEEN 21 with asthma, IBS and generalized anxiety disorder seen at [facility] on 02/23/22 for evaluation of odynophagia.? Patient is status post surgery for transposition of the great arteries in childhood. Patient stated he had hot food (portion of beef and vegetables) on 02/20/22 and since then has been having burning pain in his esophagus and upper chest every time he eats.? He complains of reduced p.o. intake since then.? Patient denies fever or chills but does have nausea and denies vomiting.? Pt gives a hx of intermittent dysphagia to solid food since childhood and has not been evaluated for this issue.? Barium swallow study and upper endoscopy was ordered as an outpatient and have not been scheduled (pt has not seen a Dairy Department Manager yet).? Patient denied palpitations, shortness of breath, heartburn, abdominal pain.? [facility] Medical History (Updated 02/20/24 @ 13:16 by Fredrick Haney MD) Esophagitis Chest pain Dysphagia Odynophagia GERD (gastroesophageal reflux disease) Generalized anxiety disorder Irritable bowel syndrome Asthma Surgical History (Updated 03/19/24 @ 15:04 by Alma Hyatt) History of esophagogastroduodenoscopy (EGD) Hx of endoscopy Transposition of the great arteries Family History Other Stomach cancer Social History (Updated 02/20/24 @ 13:08 by Fredrick Haney MD) Household Members: Family Housing: Other Are you a primary child care assistant to a significant other at home: No Do you presently have visiting nurse or other home services: No Alcohol intake: never Patient Tobacco Use Status: Never used Tobacco Tobacco use type: Cigarette e-Cigarette/Vaping Use: Never Used Second Hand Smoke Exposure: No Advance Directives Date on File: 02/27/22 service: No Current occupational status: employed Cognitive needs: No Hearing needs: No Vision needs: No Review of Systems Const All systems reviewed & are unremarkable except as noted in HPI and below Physical Exam Const General: cooperative, healthy appearing, comfortable, no acute distress and anxious Orientation/consciousness: patient oriented x3 Eyes Sclerae: sclerae normal Resp Effort & Inspection: normal respiratory effort and able to speak in complete sentences Auscultation: clear to auscultation bilaterally, no rales, no rhonchi and no wheezes Cardio Rate: regular rate Heart sounds: Murmur heart sound present GI Palpation (GI): Soft to palpation and nontender Auscultation: normal bowel sounds Neuro General: patient oriented x3 Extrem General: Yes full ROM Psych Appearance: grossly normal and well kempt Speech and movement: Pressured speech present Affect: Animated affect present Attitude: cooperative Thought process: Normal thought process present Thought content: Normal thought content present Insight: Good insight present (Psych) Judgement: Good judgement present (Psych) Assessment & Plan Assessment & Plan (1) Eosinophilic esophagitis: Comment: 11/2023 Dr. Lopez Code(s): K20.0 - Eosinophilic esophagitis Category: Medical (2) GERD (gastroesophageal reflux disease): Comment: pleasant anxious- Code(s): K21.9 - Gastro-esophageal reflux disease without esophagitis Category: Medical Plan 23 YM followed in GI for GERD and dysphagia due to EOE. Pt gives hx asthma in childhood and IBS with diarrhea alternating with constipation. 12/28/23 EGD SHOWED: Esophagus: Mild resistance on passage of a midsize endoscope through the GEJ. Esophageal balloon dilation was performed with a 14 mm (42 F) CRE balloon x 60 seconds Biopsies confirmed the diagnosis of eosinophilic esophagitis. Patient was advised to continue omeprazole 40 mg daily. He will be scheduled for a FU upper endoscopy for repeat esophageal dilation. FU in 4 months. Orders: Referrals Allergy & Immunology Referral K20.0 - Eosinophilic esophagitis Medications: New omeprazole 40 mg (2 x 20 mg) PO DAILY 180 caps 1RF 90 days K20.0 - Eosinophilic esophagitis, K21.9 - Gastro-esophageal reflux disease without esophagitis Coding Level of Care Code Est Pt Level 4 (40396) Diagnoses Eosinophilic esophagitis K20.0 GERD (gastroesophageal reflux disease) K21.9 Time Spent (min) 21
--- OUTSIDE RECORDS SUMMARY | 2024-03-21 14:45 | XMS_ITS | Continuity of Care Document ---
[facility] Address [address] [place] [address]- Care Team Providers Care Burlap Worker Name Role Phone Po Fredrick ECHEVERRIA Primary Care Physician Encounter [facility] Date(s): 12/29/23 - 12/30/[address] [address]- Discharge Disposition: A-D/C Home Attending Physician: Juan Shahid DO Admitting Physician: Juan Shahid DO Referring Physician: Not on Staff, Referring MD Allergies, Adverse Reactions, Alerts Substance Reaction Severity Status Nuts 1 Anaphylactic shock due to serum Active 1pistachio Medications Carafate 1 gm/10 ml oral suspension 10 mL = 1 Gm, By Mouth, 3 times a day before meals and bedtime, # 1,200 mL, 0 Refills, Maintenance,06/26/23 20:59:00 EST, [facility]/pharmacy #[id number], Partial fill upon patient request if the prescription isfor a schedule II opioid drug., 188, cm, 06/26/23 1... Start Date: 06/26/23 Status: Ordered Problem List Condition Confirmation Course Effective Dates Status H ealth Status Informant TGA - Operation for transposition of great arteries Confirmed Active Vital Signs Most recent to oldest [Reference Range]: 1 2 Height 187.9 cm (12/30/23 1:59 AM) 187.9 cm (12/29/23 11:18 PM) Weight 67.72 kg (12/30/23 1:59 AM) 67.72 kg (12/29/23 11:18 PM) Oxygen Saturation [94-100 %] 96 % (12/30/23 1:59 AM) 95 % (12/29/23 11:18 PM) Pulse Rate [55-90 bpm] 85 bpm (12/30/23 1:59 AM) 67 bpm (12/29/23 11:18 PM) Body Mass Index [18.5-24.99 kg/m2] 19.18 kg/m2 (12/30/23 1:59 AM) Blood Pressure [90-138/55-84 mm Hg] 121/ 75mm Hg (12/30/23 1:59 AM) Respiratory Rate [16-30 br/min] 18 br/mi n (12/30/23 1:59 AM) 18 br/min (12/29/23 11:00 PM) Temperature [96.8-100.4 DegF] 98.4 DegF (12/29/23 11:00 PM) Mode of Delivery (Oxygen) Room air (12/30/23 1:59 AM) Room air (12/29/23 11:18 PM) Blood pressure sites Arm, left (12/30/23 1:59 AM) Temperature Route Oral (12/29/23 11:00 PM) Dry Weight 67.72 kg (12/30/23 1:59 AM) 67.72 kg (12/29/23 11:18 PM) Weight Obtained Via Standing scale (12/29/23 11:18 PM) Dry Weight Obtained Via Standing scale (12/29/23 11:18 PM) Social History Social History Type Response Smoking Status Never (less than 100 in lifetime) entered on: 06/26/23 Sex Patient Care team information Care Team Personnel Name: Fredrick Haney MD Position: Reference Physician Member Role: PCP Address: Address: [address] [place] [id number]- Care Team Related Persons Name: LASHON HOLGUIN Address: [place] [address] Name: MARLO MIRELES Address: home [address] [place] [address] Name: SEDRICK SERRA Address: home [address] [place] [address]
== END 2024-03-20 15:35 | disposition home or self-care (01) ==
LOC: HO.HGI 13:27
PROVIDERS: PCP Internal Medicine; Visit Provider Internal Medicine Gastroenterology
DX: K20.0 Eosinophilic esophagitis (principal); K21.9 Gastro-esophageal reflux disease without esophagitis
CPT/HCPCS: 99214

== ENCOUNTER → 2024-03-20 13:26 | Outpatient (BNVA) | payer SELFPAY | PROVIDERS: PCP Internal Medicine; Visit Provider Internal Medicine Gastroenterology | DX: K20.0 Eosinophilic esophagitis (principal); K21.9 Gastro-esophageal reflux disease without esophagitis; Z98.890 Other specified postprocedural states | CPT/HCPCS: 99212 ==

== ENCOUNTER 2025-01-30 09:24 | Outpatient (AMB) | payer OTHER, SELFPAY ==
[2025-01-30 09:30] VITALS: BP 134/76; PULSE 79; O2SAT 98; BMI 19.4
--- NOTE | 2025-01-30 09:30 | MHC.PC.OV ---
Vital Signs 01/30/25 09:30 Height 6 ft 2 in Weight 151 lb BMI 19.4 BP 134/76 Blood Pressure Location Lt brachial Position Sitting Pulse 79 Pulse Source Pulse Oximeter Pulse Oximetry (%) 98 Oxygen Delivery Method Room Air Intake Visit Reasons: [facility] 01/27 Allergies pistachio nut Allergy (Severe, Verified 01/30/25 09:30) Anaphylaxis Tobacco use date assessed: 01/30/25 Dental Screening Dental Screen Date: 01/30/25 Did you have a dental visit in the last 12 months?: Yes Did you have a dental problem in the last 6 months where you did not have access to dental care?: No Was dental information given to patient?: Patient has dentist HPI [facility] 01/27 HPI Details had another event on food impaction esophageal egd done - did not see stricture . Patient was discharged on liquid diet. Patient states was eating orange chicken and the 1 that got stuck. Discussed about avoiding these types of food and cut the food into small pieces as well as to properly. Will try to get the notes from [facility] Medical History (Updated 02/20/24 @ 13:16 by Fredrick Haney MD) Esophagitis Chest pain Dysphagia Odynophagia GERD (gastroesophageal reflux disease) Generalized anxiety disorder Irritable bowel syndrome Asthma Surgical History (Updated 03/19/24 @ 15:04 by Alma Hyatt) History of esophagogastroduodenoscopy (EGD) Hx of endoscopy Transposition of the great arteries Family History Other Stomach cancer Social History (Updated 02/20/24 @ 13:08 by Fredrick Haney MD) Household Members: Family Housing: Other Are you a primary pet care worker to a significant other at home: No Do you presently have visiting nurse or other home services: No Alcohol intake: never Patient Tobacco Use Status: Never used Tobacco Tobacco use type: Cigarette e-Cigarette/Vaping Use: Never Used Second Hand Smoke Exposure: No Advance Directives Date on File: 02/27/22 service: No Current occupational status: employed Cognitive needs: No Hearing needs: No Vision needs: No Questionnaire PHQ-9 Over the last 2 weeks, how often have you been bothered by any of the following problems? 1. Little interest or pleasure in doing things: not at all 2. Feeling down, depressed, or hopeless: not at all 3. Trouble falling or staying asleep, or sleeping too much: not at all 4. Feeling tired or having little energy: not at all 5. Poor appetite or overeating: not at all 6. Feeling bad about yourself - or that you are a failure or have let yourself or your family down: not at all 7. Trouble concentrating on things, such as reading the newspaper or watching television: not at all 8. Moving or speaking so slowly that other people could have noticed. Or the opposite - being so fidgety or restless that you have been moving around a lot more than usual: not at all 9. Thoughts that you would be better off or of hurting yourself in some way: not at all Total score: 0 Depression Screening Interpretation: Negative Depression Screening Done: Yes Source: Developed by Drs. Dominic Ryan, Karena Arellano, Chris Taylor and colleagues, with an educational petra from [email or web address]. Thrive Questionnaire Date Thrive assessed: 01/30/25 I am a: Patient What is your living situation today?: I have a steady place to live Within the past 12 months, did the food you bought not last and you didn't have the money to get more?: Sometimes True Within the past 12 months, did you worry whether your food would run out before you got money to buy more?: Sometimes True Do you have trouble paying for medicines?: Yes Do you have trouble getting transportation to medical appointments?: No Do you have trouble paying your heating and electricity bill?: No Do you have trouble taking care of your child, family member or friend?: No Do you have trouble with day-to-day activities such as bathing, preparing meals, shopping, managing finances, etc.?: No Are you currently unemployed and looking for a job?: Yes Are you interested in more education?: No Please select the resources that you would like help with: None Currently or been in a relationship where the following occur: No concerns reported THRIVE Score: 2 AUDIT C Alcohol Use Questionnaire (AUDIT-C) 1. How often do you have a drink containing alcohol?: Monthly or less 2. How many drinks containing alcohol do you have on a typical day when you are drinking?: 1 or 2 3. How often do you have six or more drinks on one occasion?: Less than monthly Total Score: 2 JACKY-7 AMB Questionnaire JACKY-7 Date JACKY - 7 assessed: 01/30/25 Feeling nervous, anxious, or on edge: 3 = Nearly every day Not being able to stop or control worryin = Nearly every day Worrying too much about different things: 3 = Nearly every day Trouble relaxin = Several days Being so restless that it is hard to sit still: 1 = Several days Becoming easily annoyed or irritable: 1 = Several days Feeling afraid as if something awful might happen: 1 = Several days Total JACKY-7 score (0-4 normal; 5-9 mild; 10-14 moderate; 15-21 severe): 13 Source: Developed by Drs. Dominic Ryan, Karena Arellano, Chris Taylor and colleagues, with an educational petra from [email or web address]. JACKY-7 Assessment Billing JACKY-7 Assessment Tool: JACKY-7 Assessment 16270 Physical exam (Primary Care) Vital Signs: Last Vital Signs Pulse 79 01/30/25 09:30 BP 134/76 01/30/25 09:30 Pulse Ox 98 01/30/25 09:30 Oxygen Delivery Method Room Air 01/30/25 09:30 BMI result Body Mass Index 19.4 Tobacco/Smoking Status: Tobacco use Status Tobacco use date assessed 01/30/25 01/30/25 09:35 Patient Tobacco Use Status Never used Tobacco 01/30/25 09:35 Tobacco use type Cigarette 01/30/25 09:35 e-Cigarette/Vaping Use Never Used 01/30/25 09:35 PHQ-9: PHQ-9 Score PHQ-9: Total score 0 01/30/25 09:35 Depression Screening Interpretation: Negative Thrive Assessment: Date of Thrive Assessment Date Thrive assessed 01/30/25 01/30/25 09:35 Currently or been in a relationship where the following occur: No concerns reported Const General: alert; No acute distress Eyes Conjunctivae: conjunctivae normal Resp Auscultation: clear to auscultation bilaterally Cardio Other: Noted diastolic murmur but regular rhythm Rate: regular rate Rhythm: regular rhythm GI Inspection: Yes normal to inspection Extrem General: Yes normal to inspection and No edema Coding Level of Care Code Est Pt Level 4 (57506) Diagnoses 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 Meadows echocardiogram August 2022Normal left ventricular size, thickness, systolic function, and wall motion. The visually estimated ejection fraction is between 55-60%. Diastolic function is normal for age. - Normal right ventricular cavity size and systolic function. - The left atrium is likely dilated. The right atrium is normal in size. - There is mild dilatation of the sinuses of Valsalva measuring 3.60 cm. - Cannot rule out bicuspid aortic valve. 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 Category: Surgical Plan: Continue to follow-up with cardiology. (2) GERD (gastroesophageal reflux disease): Comment: pleasant anxious- Code(s): K21.9 - Gastro-esophageal reflux disease without esophagitis Category: Medical Plan: Avoid the foods that causes that usually spicy foods, tomato products, juices, coffee, soda and foods that your sensitive to. After eating do not lie down, allow 3-4 hours before in lie down. And keep the head of bed above 30 degrees to avoid the acid from going up. (3) Generalized anxiety disorder: Code(s): F41.1 - Generalized anxiety disorder Category: Medical Plan: Stable (4) Eosinophilic esophagitis: Comment: 11/2023 Dr. Lopez Code(s): K20.0 - Eosinophilic esophagitis Category: Medical Plan: advised to advance diet to soft and will get gastro schedule. February 13 8:30 a went wing then to [facility] . Plan History of Present Illness The patient is a 24-year-old male presenting for a follow-up visit after experiencing an episode of esophageal stricture. The patient has a history of congenital heart defect, specifically transposition of the great arteries, which has been managed over time. He also has generalized anxiety disorder, which has been a part of his medical history. Recently, the patient experienced food impaction in the esophagus, leading to an episode of esophageal stricture. He underwent an esophagogastroduodenoscopy (EGD) in November 2023, which revealed esophagitis, and he was placed on a liquid-only diet until further evaluation. The patient has been on omeprazole for management of esophagitis. In terms of laboratory findings, the patient had a normal blood count with mild thrombocytopenia noted in August of the previous year. His cholesterol levels were normal, but he was found to have low vitamin D levels. Health Maintenance Social History Review of Systems - Gastrointestinal: Reports food impaction in the esophagus, difficulty swallowing, and burning sensation. Physical Exam Results - Labs: Normal blood count with mild thrombocytopenia, normal cholesterol levels, low vitamin D. - Diagnostics: Esophagogastroduodenoscopy (EGD) revealed esophagitis. Plan Patient was informed and verbally consented to the use of an ambient scribe for clinic note documentation during this visit. 1. Esophageal Stricture The patient experienced an episode of esophageal stricture, which was managed with an esophagogastroduodenoscopy (EGD) that revealed esophagitis. He was placed on a liquid-only diet and is currently on omeprazole for management. A follow-up with gastroenterology is planned to reassess the condition and potentially advance the diet as tolerated. 2. Esophagitis The esophagitis was identified during the EGD and is being managed with omeprazole. The patient is advised to continue the current medication and dietary restrictions until further evaluation by gastroenterology. 3. Thrombocytopenia The patient has mild thrombocytopenia noted in previous lab results, with no current intervention required as other blood counts are normal. 4. Vitamin D Deficiency The patient has low vitamin D levels, and supplementation may be considered to address this deficiency. Discussion Notes I discussed with the patient the management of his esophageal stricture and esophagitis, emphasizing the importance of adhering to the liquid-only diet and omeprazole regimen until further evaluation by gastroenterology. We also talked about the need for follow-up with gastroenterology to reassess his condition and potentially advance his diet as tolerated. Patient Instructions - Continue liquid-only diet and omeprazole as prescribed. - Follow up with gastroenterology as scheduled for reassessment. - Monitor for any worsening symptoms and seek medical attention if necessary.
== END 2025-01-30 10:01 | disposition home or self-care (01) ==
PROVIDERS: PCP Internal Medicine; Visit Provider Internal Medicine
DX: Q20.3 Discordant ventriculoarterial connection (principal); K21.9 Gastro-esophageal reflux disease without esophagitis; F41.1 Generalized anxiety disorder; K20.0 Eosinophilic esophagitis

== ENCOUNTER → 2025-01-30 09:24 | Outpatient (BNVA) | payer OTHER, SELFPAY | PROVIDERS: PCP Internal Medicine; Visit Provider Internal Medicine | DX: K20.0 Eosinophilic esophagitis (principal); D69.6 Thrombocytopenia, unspecified; Q20.3 Discordant ventriculoarterial connection; K21.9 Gastro-esophageal reflux disease without esophagitis; F41.1 Generalized anxiety disorder; E55.9 Vitamin D deficiency, unspecified | CPT/HCPCS: 96127; 99212 ==